=== PATIENT | female | born 1955 | race Caucasian/White ===

== ENCOUNTER → 2018-04-12 12:17 | Outpatient (CLI) | payer MEDICAID, SELFPAY ==
--- NOTE | 2018-04-12 12:22 | BI_ITS ---
MAMMOGRAPHY - BILATERAL SCREENING REASON FOR EXAM: Female, 62 years old. Routine annual screening examination. PERTINENT HISTORY: Non-contributory. TECHNIQUE: Digital bilateral breast kristy (3D mammographic acquisition) in the CC and MLO projections. 2-D mediolateral oblique (MLO) and craniocaudad (CC) views of both breasts were obtained. CAD: Full Field Digital Mammography with Computer Added Detection was performed. COMPARISON: Comparison is made with prior operative examination dated November 14, 2013. FINDINGS: Breast Composition: There are scattered areas of fibroglandular density. There are no dominant masses or suspicious calcifications. Stable small bilateral axillary lymph nodes. No other significant abnormalities are identified. There has been no significant change since the prior study. BI/SCREENING MAMM (CAD), BILAT IMPRESSION: Stable bilateral screening mammogram. Yearly follow-up mammogram recommended. (A) ASSESSMENT CATEGORY: BIRADS Category 2: Benign. A letter regarding these results will be sent to the patient by the facility within 30 days. Approximately 10% of breast cancers are not detected by mammography. A normal mammogram should not delay biopsy of a clinically suspicious abnormality. [id number] Electronically Signed: Wade Chavarria MD at 11:15 EST Tel [phone], Service support ,
--- OUTSIDE RECORDS SUMMARY | 2018-06-05 18:38 | XMS RPT_ITS ---
:1955 Author Organization [facility] Care Team Providers Name Role Phone CASSIE ALMODOVAR Attending Unavailable CASSIE ALMODOVAR Referring Unavailable Cash Santamaria Primary Care Unavailable PROBLEMS PROBLEMS No Problem Records FoundPROCEDURES PROCEDURES No Procedure Records FoundRESULTS RESULTS SCREENING MAMM (CAD), Observed: 04/12/2018 Status: F Source: [place] 12:22 PM [facility] REPOSITORY [facility] Imaging Services [address] [place] [address] SCREENING MAMM (CAD), BIL MR#: [id number] Acct: [id number] Name: FRANSISCO SANTOYO Rep #: [id number] : 1955 F 62 From: Wade Chavarria MD PCP: Cash Santamaria MD Status: REG [facility] Study: SCREENING MAMM (CAD), BILAT Date of Exam: 04/12/18 Exam# [id number] Ordering Dr: RADHA KELLEY MAMMOGRAPHY - BILATERAL SCREENING REASON FOR EXAM: Female, 62 years old. Routine annual screening examination. PERTINENT HISTORY: Non-contributory. TECHNIQUE: Digital bilateral breast kristy (3D mammographic acquisition) in the CC and MLO projections. 2-D mediolateral oblique (MLO) and craniocaudad (CC) views of both breasts were obtained. CAD: Full Field Digital Mammography with Computer Added Detection was performed. COMPARISON: Comparison is made with prior operative examination dated November 14, 2013. FINDINGS: Breast Composition: There are scattered areas of fibroglandular density. There are no dominant masses or suspicious calcifications. Stable small bilateral axillary lymph nodes. No other significant abnormalities are identified. There has been no significant change since the prior study. BI/SCREENING MAMM (CAD), BILAT IMPRESSION: Stable bilateral screening mammogram. Yearly follow-up mammogram recommended. (A) ASSESSMENT CATEGORY: BIRADS Category 2: Benign. A letter regarding these results will be sent to the patient by the facility within 30 days. Approximately 10% of breast cancers are not detected by mammography. A normal mammogram should not delay biopsy of a clinically suspicious abnormality. 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: Signed ALLERGIES ALLERGIES No Allergies Records FoundENCOUNTERS ENCOUNTERS ADMIT/DISCHARGE ACCOUNT ADMITTING ENCOUNTER LOCATION SOURCE NUMBER CLASS 04/12/2018 [id number] Ambulatory [facility]ter [facility] ing:OPBI Repository PAYERS PAYERS ENCOUNTER GUARANTOR PAYER SUBSCRIBER SOURCE 04/12/2018 FRANSISCO Emerson Primary FRANSISCO Thomas [id number] Insurance:CARESOURCEP REGALLISDOB: Community CARRIAGE [facility] [place]: [id number] [id number] Repository [address]Unc: 330) Date:2018-02-23P O [phone] () [address]ATTN: [place] [address]TU: 04/12/2018 [facility]: Effective Repository Date:2018-02-23
== END ==
PROVIDERS: Family Provider Family Medicine; PCP Family Medicine
DX: Z12.31 Encounter for screening mammogram for malignant neoplasm of breast (principal)
CPT/HCPCS: 77063; 77067

== ENCOUNTER → 2019-04-14 11:39 | Outpatient (CLI) | payer MEDICARE, SELFPAY ==
--- NOTE | 2019-04-14 11:43 | BI_ITS ---
MAMMOGRAPHY - BILATERAL SCREENING REASON FOR EXAM: Female, 63 years old. Routine annual screening examination. PERTINENT HISTORY: Non-contributory. TECHNIQUE: Digital bilateral breast giovanna (3D mammographic acquisition) in the CC and MLO projections. 2-D mediolateral oblique (MLO) and craniocaudad (CC) views of both breasts were obtained. CAD: Full Field Digital Mammography with Computer Added Detection was performed. COMPARISON: Comparison is made with prior study dated April 12, 2018. FINDINGS: Breast Composition: There are scattered areas of fibroglandular density. There are no dominant masses or suspicious calcifications. Stable benign-appearing small bilateral axillary lymph nodes. No other significant abnormalities are identified. There has been no significant change since the prior study. BI/SCREEN MAMM (CAD) W/GIOVANNA BILAT IMPRESSION: Stable bilateral screening mammogram. Yearly follow-up mammogram recommended. (A) ASSESSMENT CATEGORY: BIRADS Category 2: Benign. A letter regarding these results will be sent to the patient by the facility within 30 days. Approximately 10% of breast cancers are not detected by mammography. A normal mammogram should not delay biopsy of a clinically suspicious abnormality. [id number] Electronically Signed: Wade Chavarria, at 13:19 EST , Service support ,
[2019-06-20 11:05] VITALS: BMI 32.7
== END ==
PROVIDERS: Family Provider Family Medicine; PCP Family Medicine; Referring Provider Nurse Practitioner Women's Health; Visit Provider Nurse Practitioner Women's Health
DX: Z12.31 Encounter for screening mammogram for malignant neoplasm of breast (principal)
CPT/HCPCS: 77063; 77067

== ENCOUNTER → 2020-04-13 | Outpatient (CLI) | payer MEDICARE, SELFPAY ==
[2019-06-20 11:05] VITALS: BMI 32.7
== END | disposition home or self-care (01) ==
LOC: LABSPEC 18:10
PROVIDERS: PCP Family Medicine; Referring Provider Family Medicine; Visit Provider Family Medicine
DX: Z20.828 Contact with and (suspected) exposure to other viral communicable diseases (principal)
CPT/HCPCS: 87635; C9803; U0003

== ENCOUNTER → 2020-06-26 12:30 | Outpatient (CLI) | payer MEDICARE, SELFPAY ==
[2019-06-20 11:05] VITALS: BMI 32.7
--- NOTE | 2020-06-26 12:31 | BI_ITS ---
MAMMOGRAPHY - BILATERAL SCREENING REASON FOR EXAM: Female, 64 years old. Routine annual screening examination. PERTINENT HISTORY: Non-contributory. TECHNIQUE: Digital bilateral breast giovanna (3D mammographic acquisition) in the CC and MLO projections. 2-D mediolateral oblique (MLO) and craniocaudad (CC) views of both breasts were obtained. CAD: Full Field Digital Mammography with Computer Added Detection was performed. COMPARISON: Comparison is made with prior study dated 04/14/2019. FINDINGS: Breast Composition: There are scattered areas of fibroglandular density. There are no dominant masses or suspicious calcifications. Stable small benign appearing bilateral axillary lymph nodes. No other significant abnormalities are identified. There has been no significant change since the prior study. BI/SCRN MAMM (CAD)W/GIOVANNA BILAT IMPRESSION: Stable bilateral screening mammogram. Yearly follow-up mammogram recommended. (A) ASSESSMENT CATEGORY: BIRADS Category 2: Benign. A letter regarding these results will be sent to the patient by the facility within 30 days. Approximately 10% of breast cancers are not detected by mammography. A normal mammogram should not delay biopsy of a clinically suspicious abnormality. [id number] Electronically Signed: Wade Chavarria MD at 13:53 EST , Service support ,
== END ==
PROVIDERS: PCP Family Medicine; Referring Provider Nurse Practitioner Women's Health; Visit Provider Nurse Practitioner Women's Health
DX: Z12.31 Encounter for screening mammogram for malignant neoplasm of breast (principal)
CPT/HCPCS: 77063; 77067

== ENCOUNTER 2020-08-03 14:30 | Outpatient (RCR) | payer MEDICARE, SELFPAY ==
[2020-06-26 13:11] VITALS: BMI 34.4
--- NOTE | 2020-07-04 16:20 | HP.PTEVAL_ITS ---
Patient's Visit Information FRANSISCO SANTOYO is a 64 year old F referred to Physical Therapy by Dr. Lucita Evans DO with a diagnosis of B knee OA. Date of Evaluation: 06/29/20 Physical Therapist: Terrence Iverson DPT - Visit Plan Frequency: 1x/Week Duration: 6 Weeks Plan: Start with BLE strengthening in aquatic setting. 1) focus on general mobility 2) quad, glute med/max strengthening. 3) HS stretching. Progress as tolerated. - Subjective Pt. is here today for her initial evaluation with diagnosis of B knee pain. Pt. reports having R knee pain for a few years, but now both are bothering her. 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 She does report that this has become more difficult as bending down and getting to lower surfaces is difficult. Pt. reports most pain is at L medial joint line, but has similar R joint line pain, just not as severe. Increases pain: standing, walking, stairs, and getting up from seated positions. Pt. does report popping and cracking in B knees as well. No N/T, no distal LEs pain. Pt. is hopeful to reduce symptoms in order to get back to all work activities without limitations. Pt. is also worried about being able to carry/hold new grandson to be with the way her knees are currently. - Pain R knee Pain Intensity (Out of 10): 0 Pain Intensity Range: 0, 8 L knee Pain Intensity (Out of 10): 0 Pain Intensity Range: 0, 8 - Objective POSTURE: Pt. has decent posture in stnace. No much valgus or varus demformaties noted. Pt. has slight B hip IR noted. Slight anterior pelvic tilt. PALPATION: Pt. has increased medial joint line pain, R worse than L. Also popliteal fossa pain at medial aspect L worse than R. NEURO: Pt. has normal sensation of B LEs. Normal DTR of B achilles and B patellar tendons. ROM: R knee 0-0-132deg MIld increase in symptoms with over pressure. L knee 0-5-127deg. Pt. has increased pain with over press to L knee into extension. Tightness noted in BHS as well. MMT: RLE: ankle 5/5 throughout; knee- ext 4+/5, flexon 4+/5; hip- flexion 4/5, abd 4/5, ext 4/5, ER 4/5. LLE- ankle 5/5 throughout; knee- ext 4+/5, flexon 4+/5; hip- flexion 4/5, abd 4/5, ext 4/5, ER 4/5. Pt. did have increased pain with knee extension testing on LLE. GAIT: Pt. ambulates well without AD. Pt. has increased lateral hip translation, but other than that has good knee ROM bilaterally. Pt. does report increased symptoms as she walks further. STAIRS: Pt. has increased pain with ascending and descending stairs with use of BHR, L knee pain worse than R. - Goals Goal 1:: LTG: Pt. to be I with HEP. Goal Time Frame: 4-6 Weeks Goal 2:: STG: Pt. to sleep throughout the night without increase in symptoms. Goal Time Frame: 2-4 Weeks Goal 3:: LTG: Pt. to be able to walk 500+ with 0-1/10 pain in B knees. Goal Time Frame: 4-6 Weeks Goal 4:: LTG: Pt. to negotiate 1 flight of stairs with 0-2/10 pain B knees. Goal Time Frame: 4-6 Weeks Goal 5:: LTG: Pt. to have increased strength in BLEs by 1/2 grade of all effected musculature. Goal Time Frame: 4-6 Weeks - Rehabilitation Potential Physical Therapy Diagnosis: Pt. has signs and symptoms consistent with B knee OA. Pt. has subsequent slight hypomobiltity, BLE weakness, increased pain and difficulty with work and recreational activities. Rehabilitation Potential: Good - Anticipated Interventions Patient/Client Instruction: Educate patient on: Condition, Plan of Care, Risk Factors, Benefits of Fitness Program For the Purpose of:: To foster healthy habits, To improve decision making, To facilitate caregiver knowledge, To improve self management, To prevent re- injury, To improve ability to perform tasks related to life management, To improve tolerance to ADL's Therapeutic Exercise to Include: Strength training, Power training, Endurance training, Balance training, Coordination, Agility training, Body mechanics, Postural training, Flexibilty training, Gait and locomotor training, In an aquatic setting, Passive ROM, Active ROM For the Purpose of:: To decrease pain, To decrease swelling/inflammation, To increase ROM, To improve nutrient delivery to tissue, To increase oxygenation perfusion, To improve muscle performance and motor function, To improve ability to perform ADL's, To increase tolerance to activity/condition/position, To improve performance and independence with ADL's, To improve ability of physical actions for home/community/work/leisure, To improve gait and locomotor functions, To improve health of tissue, To decrease soft tissue restriction, To increase flexibility/ROM, To improve endurance, To improve balance, To improve safety with gait Thank you for the opportunity to evaluate your patient. For Medicare and Medicare HMO plans, please review the plan of care and approve it. It will need to be FAXED BACK to us at [phone] for Medicare purposes. For Medicare only, by signing this I certify the plan of care. Please let me know if there are questions or concerns regarding this plan of care. Physician Signature: Date:
== END 2020-08-03 19:00 | disposition home or self-care (01) ==
LOC: PT 14:30
PROVIDERS: PCP Family Medicine; Referring Provider Orthopaedic Surgery; Visit Provider Orthopaedic Surgery
DX: M17.0 Bilateral primary osteoarthritis of knee (principal)
CPT/HCPCS: 97113; 97161

== ENCOUNTER → 2020-11-05 11:02 | Outpatient (CLI) | payer MEDICARE, SELFPAY ==
[2020-06-26 13:11] VITALS: BMI 34.4
--- NOTE | 2020-11-05 11:04 | US_ITS ---
STUDY: RENAL ULTRASOUND - COMPLETE REASON FOR EXAM: Female, 65 years old. FLANK PAIN TECHNIQUE: Ultrasound evaluation of the kidneys was performed with real-time and static valentino-scale imaging. COMPARISON: None. FINDINGS: RIGHT KIDNEY: Normal location of the right kidney, which is normal in size. The right kidney measures 10.2 cm x 4.6 cm x 4.1 cm. There is a normal cortex of the right kidney. The renal cortex measures 1 cm. There is no right renal mass or cyst. There are no right renal calculi. There is no right hydronephrosis. DISTAL RIGHT URETER: There is non-visualization of the distal right ureter. There is no demonstrated right ureterovesical junction calculus. There is no demonstrated right ureteral jet. LEFT KIDNEY: Normal location of the left kidney, which is normal in size. The left kidney measures 9.7 cm x 5.2 cm x 4.6 cm. There is a normal cortex of the left kidney. The renal cortex measures 1.1 cm. There is no left renal mass or cyst. There are no left renal calculi. There is no left hydronephrosis. DISTAL LEFT URETER: There is non-visualization of the distal left ureter. There is no demonstrated left ureterovesical junction calculus. There is no demonstrated left ureteral jet. BLADDER: The distended urinary bladder has a volume of 281 ml. There is a normal wall thickness of the distended urinary bladder. There is no demonstrated mass within the urinary bladder. There are no demonstrated bladder calculi. US/Kidney and Bladder IMPRESSION: Normal ultrasound of the kidneys and urinary bladder. Electronically Signed: Wade Chavarria MD at 8:36 EDT , Service support ,
--- NOTE | 2020-11-05 11:05 | US_ITS ---
STUDY: ULTRASOUND OF THE FEMALE PELVIS - COMPLETE REASON FOR EXAM: Female, 65 years old. FLANK PAIN LMP: Menopause TECHNIQUE: Transabdominal TECHNICAL QUALITY: Adequate. COMPARISON: None. FINDINGS: The uterus is anteverted and is in a midline position. The uterus measures 6.9 x 3.6 x 1.9 cm. Normal uterine cervix. The endometrium measures 4 mm in thickness, and is hyperechoic. There is no demonstrated endometrial mass. There is no demonstrated myometrial mass. I.U.D. - The patient does not have an I.U.D. The right ovary is non-visualized.. The left ovary is visualized. The left ovary measures 2.4 x 1.7 x 1.9 cm. 1.4 cm round anechoic mass with increased transmission the left ovary consistent with a physiologic cyst, par ovarian cyst, or cystadenoma. Follow-up ultrasound is recommended in one year. There is no visualized left adnexal mass or complex lesion. There is normal arterial and normal venous vascularity. There is no fluid in the cul-de-sac. The pre void volume of the bladder was 251 ml. The post void volume of the bladder was ml. Polycystic ovary disease: No. US/Pelvic (Non ) IMPRESSION: 1.4 cm of the left ovarian physiologic cyst, par ovarian cyst, or cystadenoma. Follow-up ultrasound is recommended in one year. Electronically Signed: Chance Doll MD at 17:14 EDT Tel , Service support ,
== END ==
PROVIDERS: PCP Family Medicine; Referring Provider Urology; Visit Provider Urology
DX: R10.32 Left lower quadrant pain (principal)
CPT/HCPCS: 76770; 76856

== ENCOUNTER → 2021-01-07 | Outpatient (CLI) | payer MEDICARE, SELFPAY ==
[2021-01-09 13:07] LABS: Cancer Antigen 125 12.6 U/mL (0.0-38.1); Carcinoembryonic Antigen 1.7 ng/mL (0.0-4.7)
== END | disposition home or self-care (01) ==
LOC: LABSPEC 16:31
PROVIDERS: PCP Family Medicine; Visit Provider Obstetrics & Gynecology
DX: N83.202 Unspecified ovarian cyst, left side (principal); Z13.79 Encounter for other screening for genetic and chromosomal anomalies; Z13.71 Encounter for nonprocreative screening for genetic disease carrier status
CPT/HCPCS: 36415; 82378; 86304

== ENCOUNTER → 2021-01-28 11:14 | Outpatient (CLI) | payer MEDICARE, SELFPAY ==
--- NOTE | 2021-01-28 11:18 | US_ITS ---
INDICATION: ovarian cyst EXAMINATION: US Pelvis Non OB Complete With Transvaginal Imaging TECHNIQUE: Transabdominal and transvaginal pelvic ultrasound was performed. Grayscale, spectral waveform, and color flow Doppler evaluation of the adnexa. COMPARISON: Ultrasound 11/05/2020. FINDINGS: UTERUS: Anteverted. The uterus measures 6.7 x 3.7 x 2.5 cm. There is a small posterior uterine fibroid. The endometrial stripe measures 3 mm in AP diameter which is within normal limits. RIGHT OVARY: Measures 2.2 x 2.1 x 1.6 cm. Non-enlarged, normal echogenicity. There is normal arterial inflow and venous outflow present in the right ovary. LEFT OVARY: Measures 2.8 x 2.7 x 1.7 cm. Non-enlarged, normal echogenicity. There is normal arterial inflow and venous outflow present in the left ovary. Slight increase in size of a slightly complex multilocular cystic lesion in the left ovary now measuring 2.1 cm. FREE FLUID: None. US/Transvaginal Non- IMPRESSION: Slight increase in size of a 2.1 cm multilocular cystic lesion in the left ovary. Consider multiphase pelvic MRI with and without contrast. Electronically Signed: Marv Herbert MD at 18:06 EDT Tel , Service support ,
--- NOTE | 2021-01-28 11:18 | US_ITS ---
INDICATION: ovarian cyst EXAMINATION: US Pelvis Non OB Complete With Transvaginal Imaging TECHNIQUE: Transabdominal and transvaginal pelvic ultrasound was performed. Grayscale, spectral waveform, and color flow Doppler evaluation of the adnexa. COMPARISON: Ultrasound 11/05/2020. FINDINGS: UTERUS: Anteverted. The uterus measures 6.7 x 3.7 x 2.5 cm. There is a small posterior uterine fibroid. The endometrial stripe measures 3 mm in AP diameter which is within normal limits. RIGHT OVARY: Measures 2.2 x 2.1 x 1.6 cm. Non-enlarged, normal echogenicity. There is normal arterial inflow and venous outflow present in the right ovary. LEFT OVARY: Measures 2.8 x 2.7 x 1.7 cm. Non-enlarged, normal echogenicity. There is normal arterial inflow and venous outflow present in the left ovary. Slight increase in size of a slightly complex multilocular cystic lesion in the left ovary now measuring 2.1 cm. FREE FLUID: None. US/Pelvic (Non ) IMPRESSION: Slight increase in size of a 2.1 cm multilocular cystic lesion in the left ovary. Consider multiphase pelvic MRI with and without contrast. Electronically Signed: Marv Herbert MD at 18:06 EDT Tel , Service support ,
== END ==
PROVIDERS: PCP Family Medicine; Referring Provider Obstetrics & Gynecology; Visit Provider Obstetrics & Gynecology
DX: N83.202 Unspecified ovarian cyst, left side (principal)
CPT/HCPCS: 76830; 76856

== ENCOUNTER → 2021-02-18 10:58 | Outpatient (CLI) | payer MEDICARE, SELFPAY ==
--- NOTE | 2021-02-18 10:59 | MRI_ITS ---
MR Pelvis Female WO/W Contrast Indication: 65 years old Female presenting with left ovarian cyst. Technique: MR of the female pelvis was performed in multiple planes with standard T1, T2, fat-saturated pre and postcontrast images. Field Strength: 1.5 Deloris. Contrast: A total of 17 cc IV gadolinium Dotarem is administered for the study. Comparison: Ultrasound pelvic 28 January 2021, 05 November 2020 Findings: There is a benign left ovarian 1.8 cm cyst. Size differences between MR and ultrasound are within expected difference between modality and not significant from prior reports. The lesion is low risk and does not require further follow-up according to radiologic guidelines. There are no solid or ovarian masses. Uterus is normal with postmenopausal atrophic endometrial cavity. Pessary is in the vagina. Bladder, urethra, rectum and cervix are normal. Skeletal structures of the pelvis are normal. MRI/Pelvis W/WO Contrast IMPRESSION: 1. Left ovarian benign 1.8 cm cyst not requiring further dedicated diagnostic imaging. 2. Unremarkable female pelvic MRI. Electronically Signed: Ck Schwartz MD at 16:48 EDT Tel , Service support ,
[2021-02-19 08:20] LABS: CREATININE FINGERSTICK 0.8 mg/dL (0.55-1.02); EGFR FINGERSTICK > 60.0000 mL/min (>60)
== END ==
PROVIDERS: PCP Family Medicine; Referring Provider Obstetrics & Gynecology; Visit Provider Obstetrics & Gynecology
DX: N83.202 Unspecified ovarian cyst, left side (principal)
CPT/HCPCS: 72197; A9575

== ENCOUNTER 2021-07-15 14:55 | Outpatient (CLI) | payer MEDICARE, SELFPAY ==
--- NOTE | 2021-07-15 14:57 | BI_ITS ---
MAMMOGRAPHY - BILATERAL SCREENING REASON FOR EXAM: Female, 65 years old. Routine annual screening examination. PERTINENT HISTORY: Non-contributory. TECHNIQUE: Digital bilateral breast giovanna (3D mammographic acquisition) in the CC and MLO projections. 2-D mediolateral oblique (MLO) and craniocaudad (CC) views of both breasts were obtained. CAD: Full Field Digital Mammography with Computer Added Detection was performed. COMPARISON: Comparison is made with prior study dated 06/26/2020 and 04/14/2019. FINDINGS: Breast Composition: The breasts are almost entirely fatty. There are no dominant masses or suspicious calcifications. Stable benign-appearing bilateral axillary lymph nodes. No other significant abnormalities are identified. There has been no significant change since the prior study. BI/SCRN MAMM (CAD)W/GIOVANNA BILAT IMPRESSION: Stable bilateral screening mammogram. Yearly follow-up mammogram recommended. (A) ASSESSMENT CATEGORY: BIRADS Category 2: Benign. A letter regarding these results will be sent to the patient by the facility within 30 days. Approximately 10% of breast cancers are not detected by mammography. A normal mammogram should not delay biopsy of a clinically suspicious abnormality. [id number] Electronically Signed: Wade Chavarria MD at 15:46 EST ,
== END 2021-07-15 23:59 | disposition home or self-care (01) ==
LOC: OPBI 14:56
PROVIDERS: PCP Family Medicine; Visit Provider Nurse Practitioner Women's Health
DX: Z12.31 Encounter for screening mammogram for malignant neoplasm of breast (principal)
CPT/HCPCS: 77063; 77067

== ENCOUNTER → 2021-11-22 | Outpatient (CLI) | payer MEDICARE, SELFPAY | END | disposition home or self-care (01) | LOC: LABSPEC 10:04 | PROVIDERS: PCP Family Medicine; Visit Provider Obstetrics & Gynecology | DX: R10.2 Pelvic and perineal pain (principal) | CPT/HCPCS: 87070; 87205 ==

== ENCOUNTER → 2021-12-11 | Outpatient (CLI) | payer MEDICARE, SELFPAY | END | disposition home or self-care (01) | LOC: LABSPEC 15:20 | PROVIDERS: PCP Family Medicine; Referring Provider Nurse Practitioner Women's Health; Visit Provider Nurse Practitioner Women's Health | DX: R30.9 Painful micturition, unspecified (principal) | CPT/HCPCS: 87077; 87086; 87088; 87186 ==

== ENCOUNTER → 2022-01-27 | Outpatient (CLI) | payer MEDICARE, SELFPAY | END | disposition home or self-care (01) | LOC: LABSPEC 01-28 06:20 | PROVIDERS: PCP Family Medicine; Visit Provider Obstetrics & Gynecology | DX: N89.8 Other specified noninflammatory disorders of vagina (principal) | CPT/HCPCS: 87070; 87205 ==

== ENCOUNTER → 2022-04-08 | Outpatient (CLI) | payer MEDICARE, SELFPAY ==
--- NOTE | 2022-04-08 11:06 | US_ITS ---
EXAM: US pelvis. HISTORY: Left ovarian cyst COMPARISON: MRI pelvis February 18, 2021. Pelvic ultrasound January 28, 2021. LIMITATIONS: None. FINDINGS: A pessary results in shadowing artifact limiting evaluation of the lower uterine segment and cervix.. Endometrial thickness is normal measuring 3 mm. A 2.4 x 2 cm cyst is in the left ovary. The cyst is largely composed of simple fluid. The cyst is similar in size and appearance to the prior examinations. The right ovary is not visualized. No gross free pelvic fluid. US/Transvaginal Non- IMPRESSION: 2.4 x 2 cm left ovarian cyst is grossly stable in size and appearance to the prior examinations. Electronically Signed: Daniel Tyler MD at 2:04 EST ,
== END | disposition home or self-care (01) ==
LOC: US 11:05
PROVIDERS: PCP Family Medicine; Visit Provider Obstetrics & Gynecology
DX: N83.202 Unspecified ovarian cyst, left side (principal)
CPT/HCPCS: 76830

== ENCOUNTER → 2022-06-10 | Outpatient (CLI) | payer MEDICARE, SELFPAY | END | disposition home or self-care (01) | LOC: LAB 14:58 | PROVIDERS: PCP Family Medicine; Visit Provider Obstetrics & Gynecology | DX: R39.9 Unspecified symptoms and signs involving the genitourinary system (principal) | CPT/HCPCS: 87077; 87086; 87088; 87186 ==

== ENCOUNTER → 2022-06-30 | Outpatient (CLI) | payer MEDICARE, SELFPAY | END | disposition home or self-care (01) | LOC: LABSPEC 14:04 | PROVIDERS: PCP Family Medicine; Referring Provider Obstetrics & Gynecology; Visit Provider Obstetrics & Gynecology | DX: N89.8 Other specified noninflammatory disorders of vagina (principal) | CPT/HCPCS: 87070; 87205 ==

== ENCOUNTER → 2022-10-23 | Outpatient (CLI) | payer MEDICARE, SELFPAY ==
--- NOTE | 2022-10-23 10:55 | US_ITS ---
STUDY: ULTRASOUND TRANSVAGINAL CLINICAL: Female, 67 years old. Postmenopausal bleeding. TECHNIQUE: Transvaginal COMPARISON: April 08, 2022. FINDINGS: The uterus is anteverted and measures 6.2 x 2.8 x 2.3 cm.. There is mild heterogeneity of the myometrium. There is a small anechoic mass in the subserosal region of the posterior. Left mid uterus. Cyst versus fibroid The endometrial measures 3.6 mm in thickness and is hyperechoic. There are no endometrial masses, and there is no fluid in the endometrial cavity. Normal uterine cervix. Normal right ovary, measuring 1.1 x 0.9 x 0.6 cm. There are multiple follicles without a dominant cyst. Normal vascularity on Doppler imaging. Normal left ovary, measuring 1.6 x 1.5 x 1.0 cm. There are multiple follicles with a dominant 0.9 cm cyst. Normal vascularity on Doppler imaging. There is no free fluid in the pelvis. Polycystic ovary disease: No. US/Transvaginal Non- IMPRESSION: 1. Heterogenous myometrium was questionable subserosal cysts versus anechoic fibroid. 2. Normal endometrium. 3. Normal right ovary. There is a small cyst left ovary. The cyst decreased in size when compared to the prior study. Electronically Signed: Vasyl Terry DO at 18:41 EDT ,
== END | disposition home or self-care (01) ==
PROVIDERS: PCP Family Medicine; Referring Provider Obstetrics & Gynecology; Visit Provider Obstetrics & Gynecology
DX: N95.0 Postmenopausal bleeding (principal)
CPT/HCPCS: 76830

== ENCOUNTER → 2022-12-08 | Outpatient (CLI) | payer MEDICARE, SELFPAY ==
--- NOTE | 2022-12-08 11:52 | BI_ITS ---
MAMMOGRAPHY - BILATERAL SCREENING REASON FOR EXAM: Female, 67 years old. Routine annual screening examination. PERTINENT HISTORY: Non-contributory. TECHNIQUE: Digital bilateral breast giovanna (3D mammographic acquisition) in the CC and MLO projections. 2-D mediolateral oblique (MLO) and craniocaudad (CC) views of both breasts were obtained. CAD: Full Field Digital Mammography with Computer Added Detection was performed. COMPARISON: Comparison is made with prior study dated July 15, 2021) dictated the 2020. FINDINGS: Breast Composition: The breasts are almost entirely fatty. There are no dominant masses or suspicious calcifications. Stable small benign appearing bilateral axillary lymph nodes. No other significant abnormalities are identified. There has been no significant change since the prior study. BI/SCRN MAMM (CAD)W/GIOVANNA BILAT IMPRESSION: Stable bilateral screening mammogram. Yearly follow-up mammogram recommended. (A) ASSESSMENT CATEGORY: BIRADS Category 2: Benign. A letter regarding these results will be sent to the patient by the facility within 30 days. Approximately 10% of breast cancers are not detected by mammography. A normal mammogram should not delay biopsy of a clinically suspicious abnormality. [id number] Electronically Signed: Wade Chavarria MD at 13:39 EDT ,
[2022-12-15 11:07] LABS: HPV APTIMA, High Risk Negative (Negative)
== END | disposition home or self-care (01) ==
PROVIDERS: Obstetrics & Gynecology; PCP Family Medicine; Referring Provider Nurse Practitioner Women's Health; Visit Provider Nurse Practitioner Women's Health
DX: Z12.31 Encounter for screening mammogram for malignant neoplasm of breast (principal); Z12.4 Encounter for screening for malignant neoplasm of cervix; Z78.0 Asymptomatic menopausal state
CPT/HCPCS: 77063; 77067; 87624; 88175; G0145

== ENCOUNTER → 2023-03-02 | Outpatient (CLI) | payer MEDICARE, SELFPAY | END | disposition home or self-care (01) | LOC: LABSPEC 17:12 | PROVIDERS: PCP Family Medicine; Referring Provider Obstetrics & Gynecology; Visit Provider Obstetrics & Gynecology | DX: N89.8 Other specified noninflammatory disorders of vagina (principal) | CPT/HCPCS: 87070; 87205 ==

== ENCOUNTER → 2023-04-24 | Outpatient (CLI) | payer MEDICARE, SELFPAY ==
--- NOTE | 2023-04-24 12:22 | CT_ITS ---
PROCEDURE: CT RIGHT KNEE WITHOUT CONTRAST REASON FOR EXAM: Female, 67 years old. Preoperative planning for the MakoPlasty Robotic knee surgery. Knee pain. TECHNIQUE: Transaxial CT of the hip, knee and ankle were obtained. Coronal and sagittal reconstruction images of the knee were provided. Individualized dose optimization techniques were used for this CT. COMPARISON: None. FINDINGS: Standard protocol for the preoperative planning for the MakoPlasty robotic knee surgery was performed. Mild arthrosis of the right hip, moderate arthrosis of the medial compartment, mild arthrosis of the lateral compartment and moderate arthrosis of the patellofemoral compartment of the right knee and mild arthrosis of the tibiotalar joint. CT/Extremity Lower without Contra IMPRESSION: Preoperative MakoPlasty Robotic knee surgical CT evaluation with findings as described above. Electronically Signed: Remington Monsalve MD at 13:46 EST ,
== END | disposition home or self-care (01) ==
LOC: CT 12:20
PROVIDERS: PCP Family Medicine; Referring Provider Student in an Organized Health Care Education/Training Program; Visit Provider Student in an Organized Health Care Education/Training Program
DX: M25.561 Pain in right knee (principal)
CPT/HCPCS: 73700

== ENCOUNTER → 2023-05-05 | Outpatient (CLI) | payer MEDICARE, SELFPAY ==
[2023-05-05 17:02] LABS: Color, Urine Yellow (Yellow); Glucose, Dipstick Normal (Normal); Ketone-Dipstick Negative (Negative); Leukocyte Esterase-Dipstick 500 /ul (Negative); Nitrite-Dipstick Negative (Negative); Occult Blood-Urine 50 /ul (Negative); Protein-Dipstick 30 mg/dl (Negative); Urine Bilirubin Dipstick Negative (Negative); Urine Clarity Sl. Cloudy (Clear); Urine Urobilinogen Normal (Normal)
== END | disposition home or self-care (01) ==
PROVIDERS: PCP Family Medicine; Visit Provider Family Medicine
DX: R30.0 Dysuria (principal)
CPT/HCPCS: 81002; 87086; 87088; 87186

== ENCOUNTER → 2023-06-12 | Outpatient (CLI) | payer MEDICARE, SELFPAY ==
--- NOTE | 2023-04-24 12:19 | EKG12_ITS ---
Test Reason : PRE-OP Blood Pressure : / mmHG Vent. Rate : 081 BPM Atrial Rate : 081 BPM P-R Int : 194 ms QRS Dur : 112 ms QT Int : 358 ms P-R-T Axes : 030 003 016 degrees QTc Int : 415 ms Normal sinus rhythm Normal ECG Confirmed by RADHA ESTEVES, LEONIE ([id number]), staff editor DEBBIE FALLON ([id number]) on 04/27/2023 8:38:49 AM Referred By: Kurt Mcclellan Confirmed By:BHARATH GARCIA MD
[2023-04-24 13:23] LABS: Absolute Lymphocyte Count 2.13 X10^3/uL (0.83-4.51); Absolute Neutrophil Count 6.7 X10^3/uL (2.0-7.7); Basophil# 0.06 X10^3/uL; Basophil% 0.6 % (0-1); Eosinophil# 0.24 X10^3/uL; Eosinophils% 2.4 % (0-5); Hemoglobin 12.5 g/dL (12.0-15.0); Lymphocyte # 2.13 X10^3/ul (0.83-4.51); Lymphocyte % 21.7 % (19-41); Mean Corp Hgb Conc 30.5 g/dL (32-36); Mean Corpuscular Hgb 26.3 pg (27.0-32.0); Mean Corpuscular Volume 86.1 fL (81-99); Mean Platelet Vol. 9.2 fl (6.2-12.0); Monocyte# 0.64 X10^3/uL; Monocyte% 6.5 % (0-10); NRBC Flagged by Analyzer 0 % (0-5); Neutrophil % 68.4 % (47-70); Platelet Count 371 K/mm3 (150-450); RBC Distribution Width CV 13.8 % (11.6-14.6); RBC Distribution Width SD 43.5 fl (35.1-43.9); Red Blood Count 4.76 M/mm3 (4.2-5.4); White Blood Count 9.8 K/mm3 (4.4-11.0)
[2023-04-24 13:43] LABS: Albumin, Serum 3.4 g/dL (3.2-5.0); Anion Gap 2 (5-15); BUN 11 mg/dL (7-18); BUN/Creat Ratio 12.7 RATIO (10-20); Calcium,Total 9.8 mg/dL (8.5-10.1); Chloride 108 mmol/L (98-107); Creatinine, Serum 0.86 mg/dL (0.55-1.02); EST Glomerular Filtration Rate 69 mL/min (>60); Est Glom Filt Rate - Afr Amer 83 mL/min (>60); Glucose 102 mg/dL (74-106); Magnesium 2.2 mg/dL (1.6-2.6); Potassium 4.1 mmol/L (3.5-5.1); Sodium Level 139 mmol/L (136-145)
[2023-04-27 14:08] LABS: Hemoglobin A1c 5.4 % (3.8-5.6)
== END | disposition home or self-care (01) ==
LOC: SDC 08:25 → PAT 13:30
PROVIDERS: PCP Family Medicine; Referring Provider Student in an Organized Health Care Education/Training Program; Visit Provider Student in an Organized Health Care Education/Training Program
DX: Z01.818 Encounter for other preprocedural examination (principal)
CPT/HCPCS: 36415; 80048; 82040; 83036; 83735; 85025; 87081; 93005; J3475

== ENCOUNTER 2023-07-16 05:25 | Day surgery (SDC) | payer MEDICARE, SELFPAY ==
[2023-06-26 13:11] LABS: Absolute Lymphocyte Count 2.87 X10^3/uL (0.83-4.51); Absolute Neutrophil Count 6.4 X10^3/uL (2.0-7.7); Basophil# 0.06 X10^3/uL; Basophil% 0.6 % (0-1); Eosinophil# 0.25 X10^3/uL; Eosinophils% 2.4 % (0-5); Hematocrit 42.1 % (37-47); Hemoglobin 13.2 g/dL (12.0-15.0); Lymphocyte # 2.87 X10^3/ul (0.83-4.51); Lymphocyte % 27.9 % (19-41); Mean Corp Hgb Conc 31.4 g/dL (32-36); Mean Corpuscular Hgb 26.7 pg (27.0-32.0); Mean Corpuscular Volume 85.1 fL (81-99); Mean Platelet Vol. 9.1 fl (6.2-12.0); Monocyte# 0.72 X10^3/uL; NRBC Flagged by Analyzer 0 % (0-5); Neutrophil # 6.37 X10^3/uL (2.7-7.7); Neutrophil % 61.8 % (47-70); Platelet Count 388 K/mm3 (150-450); RBC Distribution Width CV 14.8 % (11.6-14.6); Red Blood Count 4.95 M/mm3 (4.2-5.4); White Blood Count 10.3 K/mm3 (4.4-11.0)
[2023-06-26 13:28] LABS: Anion Gap 4 (5-15); BUN 16 mg/dL (7-18); BUN/Creat Ratio 17.2 RATIO (10-20); Calcium,Total 9.8 mg/dL (8.5-10.1); Chloride 109 mmol/L (98-107); Creatinine, Serum 0.93 mg/dL (0.55-1.02); EST Glomerular Filtration Rate 63 mL/min (>60); Est Glom Filt Rate - Afr Amer 77 mL/min (>60); Glucose 83 mg/dL (74-106); Potassium 4.2 mmol/L (3.5-5.1); Sodium Level 140 mmol/L (136-145)
[2023-06-29 14:23] LABS: Magnesium 2.2 mg/dL (1.6-2.6)
--- NOTE | 2023-07-15 07:30 | KNEE_PTH ---
PATHOLOGY RESULTS PATIENT: FRANSISCO SANTOYO LOC: [facility] [place] U#:[id number] AGE/SX: 67/F ROOM: RE07/16/[address]: Dr. Kurt Mcclellan DO : 1955 BED: DIS: 07/16/2023 SPEC #: [id number] RECD: 07/16/23 10:05 STATUS: HI RACHEAL #: [id number] SLIME: 07/15/23 07:[address]: Kurt Mcclellan DEPT: SURGICAL PATHOLOGY RECD BY: Meche Daly ENTERED: 07/16/23 10:06 SP TYPE: TOTAL KNEE OTHR DR: Dr. Cash Santamaria MD Tissues: Knee, NOS Procedures: Decalcification bone/plaque Surgery Specimen Level IV HEADER OPERATION: FELIPE, robotic assisted right total knee arthroplasty PRE-OP DIAGNOSIS: Grade IV osteoarthritis right knee TISSUE SUBMITTED: Right knee bone and tissue MICROSCOPIC DIAGNOSIS Bone and soft tissue, right knee, total knee replacement/resection: Pieces of bone with degenerative osteoarthritic changes. Fibroadipose tissue, fibroconnective tissue and reactive synovial tissue. PAUL:sonido 07/22/2023 MICROSCOPIC DESCRIPTION Slides are reviewed. GROSS DESCRIPTION Received is one container designated bone and soft tissue right knee. The specimen consists of multiple fragments of law-yellow bone measuring in aggregate 9.0 x 8.0 x 2.5 cm. Also in the specimen container are multiple fragments of fibrocartilaginous tissue measuring in aggregate 7.5 x 4.5 x 1.0 cm. A number of bony fragments contain articular surfaces consistent with tibial plateau and femoral condyle and displaying prominent osteophyte formation, eburnation and bone erosion. Flame Annealing Machine Setter sections are submitted in two cassettes as follows: 1 - soft tissue, 2 - bone after decalcification. / PAUL:sonido 07/16/2023 TC:5 CPT: 69321, 96209
[2023-07-16] VITALS (9 sets, daily range): BP systolic 97–123; BP diastolic 51–84; PULSE 80–87; RESP 16–18; TEMP 36.1–37.3; O2SAT 95–100; BMI 32.6
[2023-07-16] MEDS: Lactated Ringers 1,000 ML 999 ML IV ×2 (06:09→09:30)
[2023-07-16] MEDS: Lactated Ringers 1,000 ML 75 ML IV (06:10)
[2023-07-16] MEDS: Acetaminophen 500 MG Tablet 1000 MG PO ×2 (06:11→14:47)
[2023-07-16] MEDS: Celecoxib 200 MG Capsule 400 MG PO (06:11)
[2023-07-16] MEDS: Magnesium 1 GM over 15 mins IV (06:11)
[2023-07-16] MEDS: Gabapentin 600 MG Tablet PO (06:11)
[2023-07-16] MEDS: Cefazolin 2 GM in 0.9% Normal Saline (100mL Bag) 100 ML IV (07:30)
[2023-07-16 07:36] LABS: Bedside Glucose 85 mg/dL (74-106)
[2023-07-16] MEDS: TXA 1000mg in NS100 100ml (IVPB at Closure) 660 MG IV (07:42)
[2023-07-16] MEDS: dexAMETHasone 10 MG/ML Vial IV (07:42)
[2023-07-16] MEDS: JPS (Morphine 10mg/ml) OPERA.SITE (08:58)
[2023-07-16] MEDS: TXA 1000mg in NS100 100ml (IVPB at Incision) 660 MG IV (08:59)
--- NOTE | 2023-07-16 10:00 | OP.PCM_ITS ---
Report of Operation Date of Procedure: 07/16/23
--- NOTE | 2023-07-16 10:00 | PCM.OPRPT ---
Report of Operation Date of Procedure: 07/16/23 Description of Surgical Findings:: Preoperative diagnosis: Right severe knee primary osteoarthritis Postoperative diagnosis: Right severe knee primary osteoarthritis Procedure: Cemented right total knee arthroplasty with robotic arm assistance Surgeon: Kurt Mcclellan DO Clinical Writer: Maria Del Rosario Fonseca PA-C Anesthesia: Spinal with sedation, adductor canal block Anesthesiologist: Dr. Gallagher Complications: None apparent Drains: None Estimated blood loss: 50 cc Urinary output: None recorded IV fluids: 1 L crystalloid Specimens: Total knee resections Surgical implants: Nelia triathlon X3 asymmetric patella size a29 x 9 mm thickness, triathlon cruciate retaining femoral #3, primary tibial baseplate # 3, triathlon X3 tibial bearing insert CS 9 mm thickness Indications: This is a 67-year-old female seen in the outpatient setting diagnosed with right knee osteoarthritis with significant varus deformity. She failed nonoperative management with intra-articular corticosteroid injections, activity modification, bracing, [id number] analgesics. X-rays revealed grade 4 medial compartment changes. She also had significant patellofemoral arthritis. I recommended a right total knee arthroplasty. The risk, benefits, alternatives to procedure reviewed with patient at length and he agreed to proceed. Risks included but were not limited to bleeding, infection, loss of life or limb, need for additional surgery, persistent pain, intraoperative or postoperative fracture, instability, loosening of components, wound complications, stiffness, neurovascular injury, DVT or PE. Patient expressed understanding these risks and wished to proceed with surgery. Informed consent was obtained in the outpatient setting. Description of procedure: Patient was identified in the preoperative holding area by name, medical record number, and date of . Informed consent was confirmed with the patient. The operative knee was marked with a surgical marker. At time of her procedure, patient brought to the operative suite and positioned supine a standard operating table. Anesthesia then administered a spinal anesthetic. She was then repositioned in the supine position with all bony prominences well-padded. We then placed a well-padded pneumatic tourniquet on the right upper thigh. The right upper extremity was brought across patient's chest throughout the procedure. We then prepped and draped the left lower extremity in a normal, sterile orthopedic fashion. We performed a timeout with all parties in attendance in agreement with the side, site, operation be performed. No concerns were voiced and would like to proceed with surgery. 2 g Ancef was administered prior to the incision by anesthesia staff as well as 1 g IV TXA. First exsanguinated the left lower extremity with a Esmarch bandage. Tourniquet was inflated to 250 mmHg which remained up for approximately 50 minutes. Esmarch was removed. I planned a standard midline approach to the left knee approximately 15 cm in length. Skin was sharply incised with a 10 blade scalpel developing full-thickness layers down to the retinaculum. Layers were developed identifying the VMO. I then planned a standard medial parapatellar arthrotomy performed in flexion. The anterior horn of the medial meniscus was released. Hoffa's fat pad was then released. I then everted the patella in extension and brought the knee into 90 degrees of flexion. The anterior horn of the lateral meniscus was then released. The ACL was split in its mid substance with a 10 blade. We then brought the knee back into extension. I measured the outer diameter of the patella and appropriately sized patellar reamer was then selected. I measured the thickness of the patella to be 26 mm. I then reamed the patella to a depth of approximately 16 mm. A protective baseplate was then placed on the patella. I then placed pins in the metaphyseal distal femur medial to lateral for the Lucas arrays. In similar fashion, I made 2 stab incisions approximately a handsbreadth distal to the tibial tubercle along the medial aspect of the tibia, drilling 2 bicortical pins for the tibial array. The knee was brought into flexion. The patella was subluxed laterally but not everted. Medial and lateral retractors were placed. We then utilized the fitaborate software to confirm our planned surgical procedure and oriented with the patient's osseous anatomy. All checks with the fitaborate system were confirmed. Patient had a significant fixed varus deformity after performing stress examination utilizing the fitaborate software. We elected to place the tibial baseplate in 3 degrees of varus to allow for appropriate balancing. Sawblade was then brought in. I first started with the tibial cut, ensuring protection of the MCL and patellar tendon. A tibial wafer was then excised. I then proceeded to make the posterior femoral, anterior, anterior chamfer cuts with the same blade. Ligaments were protected with Intermedics retractors. Sawblade was then exchanged to perform the distal femoral and posterior chamfer cuts. The robot was then removed from the surgical field. Remaining loose bone and meniscus was excised carefully. Posterior osteophytes were removed from the distal femur with a curved osteotome and rongeur. Trial components were then placed. Balance was excellent in both extension and 90 degrees flexion. No mid flexion instability was apparent. I then drilled for a size 29 patella. Patella was trialed. Tracking was excellent. We then marked for tibial baseplate. Distal femoral pegs were drilled. Tibial keel was punched. Trials were removed. Periarticular block was administered. The wound was copiously irrigated with normal saline solution. Simplex cement was then mixed on the back table. Components were then cemented in place with excess cement being removed. Cement was allowed to cure with the components in full extension utilizing a 9 mm trial polyethylene component. While the cement was curing, Irrisept solution was irrigated into the wound and the wound edges. After cement had cured fully, trial polyethylene was removed. Tourniquet was deflated. Hemostasis was excellent. An additional 1 g TXA was administered IV. I selected a size 9 mm polyethylene which was placed and impacted per combine driver recommendations. Final components appeared very well balanced with excellent range of motion. There is no significant remaining flexion contracture. The wound was copiously irrigated with normal saline solution. Capsule was closed watertight with #1 strata fix barbed suture. Deeper bursal layer was reapproximated with 0 Vicryl suture. Dermis was reapproximated buried interrupted 2-0 Vicryl suture. Skin was finally reapproximated sadiq. Patient tolerated the procedure well without apparent complication. She was safely awakened in the operative suite, transferred to his hospital bed and subsequently to PACU in stable condition. Need for skilled therapeutic assistant: Maria Del Rosario Fonseca PA-C was critical to the outcome of the case. During the course of the procedure the physician therapeutic assistant played a vital role. Her intimate knowledge of my steps in the procedure aided in safe and expedient completion of the procedure. The PA played a vital role in positioning particularly in obtaining the appropriate positioning. The PA was also vital in the retraction of soft tissues during the exposure and projecting vital structures. The PA was also vital and protecting soft tissues during times of bony cuts. She also played a vital role in closure with my direct supervision. The PA was also important during reduction and dislocation of the joint and trials intraoperatively. Post Operative Plan: Plan for same-day discharge home as an outpatient right total knee arthroplasty. After spinal anesthesia wears off we will mobilize the patient with therapy and nursing staff. As long as criteria are met, we will plan for discharge home today. Outpatient physical therapy has been scheduled for postoperative day #5. Weightbearing: Range of motion and weightbearing as tolerated right lower extremity. Antibiotics: Ancef 2 g every 8 hours x 3 doses DVT Prophylaxis: Multimodal with 81 mg ASA BID, SCDs, PEDRO hose and early mobilization Lorenzo: None Dressing: Maintain silver dressing x5 days X-Rays: 2-week x-rays in the office. Follow-up: 2 weeks in my office for staple removal
[2023-07-16] MEDS: Lactated Ringers 1,000 ML 125 ML IV (10:12)
[2023-07-16] MEDS: Cefazolin 1 GM/50 ML BAG IV (12:31)
[2023-07-16] MEDS: oxyCODONE 5 MG Tablet PO (12:32)
== END 2023-07-16 15:21 | disposition home or self-care (01) ==
LOC: SDC 05:29 → AC 05:29
PROVIDERS: Anesthesiology; PCP Family Medicine; Referring Provider Student in an Organized Health Care Education/Training Program; Visit Provider Student in an Organized Health Care Education/Training Program
PROC: 0SRC0JZ Replacement of Right Knee Joint with Synthetic Substitute, Open Approach (ICD-10-PCS; CPT 27447; principal; 2023-07-16 07:00)
DX: M17.11 Unilateral primary osteoarthritis, right knee (principal); M21.161 Varus deformity, not elsewhere classified, right knee; I10 Essential (primary) hypertension; E78.00 Pure hypercholesterolemia, unspecified; Z87.891 Personal history of nicotine dependence; Z79.82 Long term (current) use of aspirin; Z79.899 Other long term (current) drug therapy; K21.9 Gastro-esophageal reflux disease without esophagitis
CPT/HCPCS: 27447; S2900; 01402; 36415; 80048; 82962; 83735; 85025; 87081; 88305; 88311; 97162; C1776; J7120; J2405; J3475

== ENCOUNTER 2023-08-21 09:30 | Outpatient (RCR) | payer MEDICARE, SELFPAY ==
--- NOTE | 2023-07-21 09:01 | HP.PTEVAL ---
Patient's Visit Information Visit Information Visit Information: FRANSISCO ARDON is a 67 year old F referred to Physical Therapy by TAMIE Wilson with a diagnosis of R TKR. 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 She states that she has had bilateral knee pain for almost 10 years and choose to do the right knee first. She lives in a [place] home with her . The house has with 2 steps to enter the main floor and several to the basement. Patient states that she is relatively healthy and is active with her grand children. Pain Knee: Pain Intensity (Out of 10): 2 Pain Intensity Range: 1 and 9 Objective Objective: Ambulated 500 feet with rolling walker to exam room and appointment a little slower than normal gait. Incision site is healing well no drainage thru bandage and would like bandage on for another week. PROM is -5 extension and 105 flexion with soft end feel. About 2 inches swelling noted at knee. R 20 3 above patella 19.75 at patella and 16 3 below. L 17, 17.5 and 14. Difficulty performing a SLR was able to do a seated LAQ. Dorsal pedal pulse in palpable no calf tenderness denies and fever or chills. Balance/Special Test Scores WOMAC Total Score: 49 WOMAC Percentatge: 41.6700 Goals Goal 1:: Return DEMO HEP Goal Time Frame: 1 Week Goal 2:: Improve ROM by 10% Goal Time Frame: 2-4 Weeks Goal 3:: Begin light strengthening next visit. Goal Time Frame: 2-4 Weeks Goal 4:: Reduce Swelling by 1 inch at knee Goal Time Frame: 2-4 Weeks Goal 5:: Wean away from assistive device as her strengthening, ROM and balance improve Goal Time Frame: 6-8 Weeks Rehabilitation Potential Physical Therapy Diagnosis: R TKR with increased swelling and decreased ROM Rehabilitation Potential: Good Anticipated Interventions Patient/Client Instruction: Educate patient on: Condition and Plan of Care For the Purpose of:: To decrease swelling/inflammation, To increase ROM, To increase flexibility/ROM, To improve endurance and To assume or resume ADL's Therapeutic Exercise to Include: Strength training, Balance training, Flexibilty training, Gait and locomotor training and Active ROM For the Purpose of:: To decrease pain, To decrease swelling/inflammation, To increase ROM, To increase flexibility/ROM and To assume or resume ADL's Functional Training to Include: Gait training For the Purpose of:: To decrease swelling/inflammation, To increase ROM, To improve safety with gait and To assume or resume ADL's Manual Therapy Techniques to Include: Massage, Manual lymph drainage, Mobilization and Passive ROM For the Purpose of:: To decrease pain, To decrease swelling/inflammation, To increase ROM, To increase flexibility/ROM and To assume or resume ADL's Cryotherapy (ice pack, ice massage): Yes Vasopneumatic device: Yes Comment: Reduce swelling to within 1 inch of other For the Purpose of:: To decrease pain, To decrease swelling/inflammation, To increase ROM, To increase flexibility/ROM and To assume or resume ADL's Text: Thank you for the opportunity to evaluate your patient. For Medicare and Medicare HMO plans, please review the plan of care and approve it. It will need to be FAXED BACK to us at [phone] for Medicare purposes. For Medicare only, by signing this I certify the plan of care. Please let me know if there are questions or concerns regarding this plan of care. Physician Signature: Date:
--- NOTE | 2023-08-21 10:06 | HP.PTREVAL_ITS ---
Re-Evaluation Intro: TAMIE Wilson, It has been my pleasure to treat FRANSISCO SANTOYO over the last 13 visits for R TKR 07/16/23. Please see the progress note below for an update on the physical therapy plan of care! Subjective Subjective: I am feeling good Objective Objective/Function: R knee pain ranges from 2-8/10 R knee MMT: flex= 17, ext= 28 #F R knee ROM: 0-10-118 degrees Pt is I with HEP Plan Plan Plan: Discharge to [facility] Balance/Gait/Functional tests Balance/Special Test Scores WOMAC Total Score: 30 WOMAC Percentage: 68.7500 Goals Goals Goal 1:: Return DEMO HEP Goal Time Frame: 1 Week Goal Progress: Goal Met Goal 2:: Improve ROM by 10% Goal Time Frame: 2-4 Weeks Goal Progress: Goal Met Goal 3:: Begin light strengthening next visit. Goal Time Frame: 2-4 Weeks Goal Progress: Goal Met Goal 4:: Reduce Swelling by 1 inch at knee Goal Time Frame: 2-4 Weeks Goal Progress: Goal Met Goal 5:: Wean away from assistive device as her strengthening, ROM and balance improve Goal Time Frame: 6-8 Weeks Goal Progress: Goal Met Anticipated Interventions Anticipated Interventions Patient/Client Instruction: Educate patient on: Condition and Plan of Care For the Purpose of:: To decrease swelling/inflammation, To increase ROM, To increase flexibility/ROM, To improve endurance and To assume or resume ADL's Therapeutic Exercise to Include: Strength training, Balance training, Flexibilty training, Gait and locomotor training and Active ROM For the Purpose of:: To decrease pain, To decrease swelling/inflammation, To increase ROM, To increase flexibility/ROM and To assume or resume ADL's Functional Training to Include: Gait training For the Purpose of:: To decrease swelling/inflammation, To increase ROM, To improve safety with gait and To assume or resume ADL's Manual Therapy Techniques to Include: Massage, Manual lymph drainage, Mobilization and Passive ROM For the Purpose of:: To decrease pain, To decrease swelling/inflammation, To increase ROM, To increase flexibility/ROM and To assume or resume ADL's Cryotherapy (ice pack, ice massage): Yes Vasopneumatic device: Yes Comment: Reduce swelling to within 1 inch of other For the Purpose of:: To decrease pain, To decrease swelling/inflammation, To increase ROM, To increase flexibility/ROM and To assume or resume ADL's Re-Evaluation Ending Re-evaluation ending: Please do not hesitate to contact me at [phone] by phone or if you have questions or concerns regarding this new plan of care! Sincerely, Jerardo Baig, PT, ATC
== END 2023-08-21 19:00 | disposition home or self-care (01) ==
LOC: PT 09:30
PROVIDERS: PCP Family Medicine; Referring Provider Physician Assistant Surgical; Visit Provider Physician Assistant Surgical
DX: M17.0 Bilateral primary osteoarthritis of knee (principal); Z96.651 Presence of right artificial knee joint
CPT/HCPCS: 97016; 97110; 97140; 97162

== ENCOUNTER → 2023-11-13 | Outpatient (CLI) | payer MEDICARE, SELFPAY ==
--- NOTE | 2023-11-13 12:13 | US_ITS ---
INDICATION: Postmenopausal bleeding EXAMINATION: Ultrasound US Transvaginal Non-OB TECHNIQUE: Transvaginal (for optimal evaluation of the adnexa) pelvic ultrasound was performed. Grayscale, spectral waveform, and color flow Doppler evaluation of the adnexa. COMPARISON: Prior study dated: 10/28/2022 FINDINGS: UTERUS: , Heterogeneous with multiple small calcifications. The uterus measures 6.8 x 2.3 x 3.5 cm. Small hypoechoic area in the posterior wall of the uterus measuring about 6 mm similar to prior examination likely representing small fibroid. The endometrial stripe measures 4 mm in AP diameter which is within normal limits. RIGHT OVARY: 1.8 x 0.9 x 1.2 cm. Non-enlarged, normal echogenicity. There is normal arterial inflow and venous outflow present in the right ovary. LEFT OVARY: 3.1 x 2 x 2.5 cm. There is a 2.3 cm cyst in the left ovary. There is normal arterial inflow and venous outflow present in the left ovary. FREE FLUID: None. US/Transvaginal Non- IMPRESSION: 1. Probable small uterine fibroid. 2. Endometrium is within normal limits in thickness. Electronically Signed: Luis Harvey MD at 15:21 EDT ,
== END | disposition home or self-care (01) ==
PROVIDERS: PCP Family Medicine; Referring Provider Obstetrics & Gynecology; Visit Provider Obstetrics & Gynecology
DX: N95.0 Postmenopausal bleeding (principal)
CPT/HCPCS: 76830

== ENCOUNTER → 2023-11-19 | Outpatient (CLI) | payer MEDICARE, SELFPAY | END | disposition home or self-care (01) | LOC: LAB 17:26 | PROVIDERS: PCP Family Medicine; Referring Provider Obstetrics & Gynecology; Visit Provider Obstetrics & Gynecology | DX: N83.202 Unspecified ovarian cyst, left side (principal) ==

== ENCOUNTER → 2023-11-20 | Outpatient (CLI) | payer MEDICARE, SELFPAY ==
[2023-11-22 09:07] LABS: Cancer Antigen 125 12.8 U/mL (0.0-38.1); Carcinoembryonic Antigen 2.1 ng/mL (0.0-4.7)
== END | disposition home or self-care (01) ==
PROVIDERS: PCP Family Medicine; Referring Provider Obstetrics & Gynecology; Visit Provider Obstetrics & Gynecology
DX: N95.0 Postmenopausal bleeding (principal); N83.202 Unspecified ovarian cyst, left side
CPT/HCPCS: 36415; 82378; 86304

== ENCOUNTER → 2023-12-18 | Outpatient (CLI) | payer MEDICARE, SELFPAY ==
[2023-12-24 19:07] LABS: HPV APTIMA, High Risk Negative (Negative)
== END | disposition home or self-care (01) ==
LOC: LABSPEC 16:46
PROVIDERS: PCP Family Medicine; Referring Provider Obstetrics & Gynecology; Visit Provider Obstetrics & Gynecology
DX: Z12.4 Encounter for screening for malignant neoplasm of cervix (principal); N95.0 Postmenopausal bleeding
CPT/HCPCS: 87624; 88175; G0145

== ENCOUNTER → 2024-01-14 | Outpatient (CLI) | payer MEDICARE, SELFPAY ==
--- NOTE | 2024-01-14 12:34 | BI_ITS ---
MAMMOGRAPHY - BILATERAL SCREENING REASON FOR EXAM: Female, 68 years old. Routine annual screening examination. PERTINENT HISTORY: Non-contributory. TECHNIQUE: Digital bilateral breast giovanna (3D mammographic acquisition) in the CC and MLO projections. 2-D mediolateral oblique (MLO) and craniocaudad (CC) views of both breasts were obtained. CAD: Full Field Digital Mammography with Computer Added Detection was performed. COMPARISON: Comparison is made with prior study dated December 08, 2022 and July 15, 2021. FINDINGS: Breast Composition: There are scattered areas of fibroglandular density. There are no dominant masses or suspicious calcifications. Stable bilateral fat-containing axillary lymph nodes. No other significant abnormalities are identified. There has been no significant change since the prior study. BI/SCRN MAMM (CAD)W/GIOVANNA BILAT IMPRESSION: Stable bilateral screening mammogram. Yearly follow-up mammogram recommended. (A) ASSESSMENT CATEGORY: BIRADS Category 2: Benign. A letter regarding these results will be sent to the patient by the facility within 30 days. Approximately 10% of breast cancers are not detected by mammography. A normal mammogram should not delay biopsy of a clinically suspicious abnormality. [id number] Electronically Signed: Wade Chavarria MD at 13:48 EDT ,
--- NOTE | 2024-01-14 12:34 | US_ITS ---
PROCEDURE: ULTRASOUND OF THE FEMALE PELVIS - COMPLETE REASON FOR EXAM: Female, 68 years old. PMB TECHNIQUE: Transabdominal and Transvaginal TECHNICAL QUALITY: Adequate. COMPARISON: Pelvic ultrasound dated November 13, 2023. FINDINGS: The uterus is anteverted and is in a midline position. The uterus measures 7.1 x 3.2 x 2.5 cm. Stable posterior uterine body intramural fibroid measuring 5.5 mm. Redemonstration of diffuse vascular calcifications of the uterus which is of no clinical significance. The endometrium measures 3.6 mm in thickness, and is hyperechoic. There is no demonstrated endometrial mass. Normal uterine cervix. The right ovary is visualized. The right ovary measures 1.1 x 1.0 x 1.2 cm. There is no right ovarian cyst or ovarian mass. There is no visualized right adnexal mass or complex lesion. The left ovary is visualized. The left ovary measures 3.0 x 2.1 x 2.1 cm. Simple 2.3 cm left ovarian follicular cyst is unchanged from the prior study. There is no visualized left adnexal mass or complex lesion. Normal color vascular flow and Doppler signal is demonstrated in both ovaries. There is no fluid in the cul-de-sac. US/Transvaginal Non- IMPRESSION: 1. Tiny posterior uterine fibroid unchanged 2. Simple 2.3 cm left ovarian follicular cyst is unchanged from the prior study. 3. No visualized endometrial mass or abnormal thickening on this study. Postmenopausal bleeding should be evaluated by gynecology and direct examination/visualization. If symptoms continue also consider endometrial tissue sampling and pathologic evaluation. Electronically Signed: Jaime Shaikh MD at 16:00 EDT ,
== END | disposition home or self-care (01) ==
LOC: US 12:31
PROVIDERS: PCP Family Medicine; Referring Provider Obstetrics & Gynecology; Visit Provider Obstetrics & Gynecology
DX: Z12.31 Encounter for screening mammogram for malignant neoplasm of breast (principal); N95.0 Postmenopausal bleeding
CPT/HCPCS: 76830; 77063; 77067

== ENCOUNTER → 2024-06-06 | Outpatient (CLI) | payer MEDICARE, SELFPAY ==
--- NOTE | 2024-06-06 15:05 | CT_ITS ---
PROCEDURE: CT LEFT KNEE WITHOUT CONTRAST REASON FOR EXAM: Female, 68 years old. Preoperative planning for the MakoPlasty Robotic knee surgery. Knee pain. TECHNIQUE: Transaxial CT of the hip, knee and ankle were obtained. Coronal and sagittal reconstruction images of the knee were provided. Individualized dose optimization techniques were used for this CT. COMPARISON: None. FINDINGS: Standard protocol for the preoperative planning for the MakoPlasty robotic knee surgery was performed. Osteopenia with mild arthrosis of the left hip, tricompartmental arthrosis most marked medially and mild arthrosis of the tibiotalar joint. CT/Extremity Lower without Contra IMPRESSION: Preoperative MakoPlasty Robotic knee surgical CT evaluation with findings as described above. Electronically Signed: Remington Monsalve MD at 15:48 EST ,
== END | disposition home or self-care (01) ==
PROVIDERS: PCP Family Medicine; Referring Provider Student in an Organized Health Care Education/Training Program; Visit Provider Student in an Organized Health Care Education/Training Program
DX: M17.12 Unilateral primary osteoarthritis, left knee (principal)
CPT/HCPCS: 73700

== ENCOUNTER 2024-06-24 09:28 | Outpatient (RCR) | payer MEDICARE, SELFPAY ==
--- NOTE | 2024-08-16 13:12 | HP.PT.NRP ---
Patient Information Patient Information: FRANSISCO SANTOYO was seen in my office for initial evaluation on 06/24/24. The following Plan of Care was established for this patient: POC Established Initial Frequency: 1x/Week Initial Duration: 4-6 Weeks Anticipated Interventions Patient/Client Instruction: Educate patient on: Condition and Plan of Care For the Purpose of:: To decrease pain, To improve nutrient delivery to tissue, To improve muscle performance and motor function and To increase tolerance to activity/condition/position Therapeutic Exercise to Include: Balance training For the Purpose of:: To increase tolerance to activity/condition/position and To improve ability of physical actions for home/community/work/leisure Last Seen Last Seen: This patient was last seen in our office 06/24/24. Pertinent comments regarding their Physical therapy will appear below: Pt seen for one visit and POC established but could not return due to having a TKA performed and rehabbing for that. She has been in here numerous times since for TKA rehab and no concerns with dizziness that would warrant return to PT. i will discontinue at this time At this point I will be discontinuing this patient from physical therapy. I would be happy to see this patient again in the future if found appropriate by the physician. Thank you! Lg Hernandez, DPT, OCS, CSCS Balance/Gait/Functional tests Balance/Special Test Scores Functional Gait Assessment Score: 22 % Disability: 26.6700 Dizziness Score: 42
== END 2024-06-24 19:00 | disposition home or self-care (01) ==
LOC: PT 09:28
PROVIDERS: PCP Family Medicine; Referring Provider Family Medicine; Visit Provider Family Medicine
DX: R42 Dizziness and giddiness (principal)
CPT/HCPCS: 97161

== ENCOUNTER 2024-06-30 08:55 | Day surgery (SDC) | payer MEDICARE, SELFPAY ==
--- NOTE | 2024-06-07 12:53 | EKG12_ITS ---
Test Reason : PRE OP Blood Pressure : */* mmHG Vent. Rate : 81 BPM Atrial Rate : 81 BPM P-R Int : 188 ms QRS Dur : 130 ms QT Int : 380 ms P-R-T Axes : 43 48 19 degrees QTcB Int : 441 ms Normal sinus rhythm Right bundle branch block Abnormal ECG Confirmed by RADHA ESTEVES, LEONIE ([id number]), script editor WAN RIZZO ([id number]) on 06/08/2024 6:32:16 AM Referred By: Kurt Mcclellan Confirmed By: LEONIE GARCIA MD
[2024-06-07 14:09] LABS: Albumin, Serum 3.6 g/dL (3.2-5.0); Anion Gap 5 (5-15); BUN 15 mg/dL (7-18); BUN/Creat Ratio 15.5 RATIO (10-20); Calcium,Total 9.7 mg/dL (8.5-10.1); Chloride 108 mmol/L (98-107); Creatinine, Serum 0.97 mg/dL (0.55-1.02); EST Glomerular Filtration Rate 60 mL/min (>60); Est Glom Filt Rate - Afr Amer 73 mL/min (>60); Glucose 127 mg/dL (74-106); Magnesium 2.1 mg/dL (1.6-2.6); Potassium 4.4 mmol/L (3.5-5.1); Sodium Level 138 mmol/L (136-145)
--- NOTE | 2024-06-07 20:59 | PAT.ANESEVAL ---
Pre-Assessment Diagnosis/Proposed Procedure Planned Operative Procedure(s): (L) Total Knee Replacement Robotic Arm Kuldip Anesthesia History Anesthesia History - truer pinion and wheel: Anesthesia History - truer pinion and wheel Hx Hospitalization No 06/01/24 14:18 Any Problems With Anesthesia Yes: PONV 06/01/24 14:18 Cholinesterase deficiency No 06/01/24 14:18 You/Your Family Experience No 06/01/24 14:18 fever (hyperthermia) with Relationship Recent Exposure to Contagious No 07/16/23 05:51 Disease Does patient have nerve No 06/01/24 14:18 stimulator Patient instructed to have device shut off --Does patient have Pacemaker or ICD? When Was Last Pacemaker Check QUESTION #4 FULL TEXT: You/Your Family Experience fever (hyperthermia) with Anesthesia Last Oral Intake Last Oral intake: Last Oral Intake NPO since Meds taken in AM with sips of water? Meds patient instructed to take am of surgery PONV PONV - truer pinion and wheel: PONV - truer pinion and wheel Female Yes 06/01/24 14:18 HX of Motion Sickness Yes 06/01/24 14:18 HX of N/V After Surgery Yes 06/01/24 14:18 Non-Smoker Yes 06/01/24 14:18 Duration of Surgery greater Yes 06/01/24 14:18 than 60 minutes Number of Risk Factors 5 06/01/24 14:18 PONV Score Severe Risk 06/01/24 14:18 Height & Weight Height & Weight: Anesthesia: Height & Weight Height 5 ft 1 in 01/25/24 08:24 Respiratory Assessment Respiratory Assessment - truer pinion and wheel: Respiratory Tract Infection Hx - truer pinion and wheel Hx Respiratory Tract Infection No 06/01/24 14:18 STOP Sleep Apnea STOP Sleep Apnea - truer pinion and wheel: STOP Sleep Apnea - truer pinion and wheel Hx Hypertension Yes: CONTROLLED WITH MED 06/01/24 14:18 Hx Sleep Apnea Yes: DIAGNOSED, HAS NOT 06/01/24 14:18 GOTTEN CPAP YET DUE TO INSURANCE CPAP No 06/01/24 14:18 BIPAP No 06/01/24 14:18 Do you snore loudly (louder than talking or can be heard Do you often feel tired/ fatigued/ sleepy during daytime? Has anyone observed you stop breathing during sleep? STOP Results Positive 06/01/24 14:18 QUESTION #5 FULL TEXT : Do you snore loudly (louder than talking or can be heard through closed doors)? 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 Specify any problems Hx of Preganancy in last 3 N/A 06/01/24 14:18 Months Nurse Filling Out Transfusion NBU[facility]ER 06/01/24 14:18 & Questions: Date: 06/01/24 06/01/24 14:18 Time: 14:21 06/01/24 14:18 Patient unable to answer at this time (ie. confused, unrespo /Reproduction History /Reproductive History - truer pinion and wheel: /Reproductive Hx- truer pinion and wheel Hx Now Gestational Age (in weeks): EDC: Hx Hx Para Hx Section SAB No 06/01/24 14:18 PFSH Medical History (Updated 06/01/24 @ 14:28 by Melissa Foss) PONV (postoperative nausea and vomiting) Post-menopausal Alcohol use History of pain when walking Wears glasses Arthritis Bladder disease Former smoker Hypertension Right shoulder pain Bilateral primary osteoarthritis of knee Impingement syndrome, shoulder, left GERD (gastroesophageal reflux disease) High cholesterol Anxiety Home Medications ?Medication ?Instructions ?Recorded ?Last Taken ?Type amitriptyline 25 mg tablet 25 mg PO QHS 06/20/19 07/15/23 20:00 History simvastatin 20 mg tablet 20 mg PO DAILY 06/20/19 07/15/23 20:00 History promethazine 25 mg tablet 25 mg PO TID PRN nausea and 05/21/21 Unknown History vomiting metoprolol succinate 25 mg 50 mg PO DAILY 03/16/23 07/16/23 03:45 History tablet,extended release 24 hr naproxen 500 mg tablet 500 mg PO DAILY 06/29/23 07/10/23 History acetaminophen 500 mg capsule 500 mg PO Q6H PRN pain 07/16/23 07/15/23 History ascorbic acid (vitamin C) 500 mg 500 mg PO DAILY 07/16/23 Unknown History capsule famotidine 20 mg tablet 20 mg PO DAILY 07/16/23 07/16/23 03:45 History hydrocodone-acetaminophen 5-325mg 1 tab PO Q8H 07/16/23 Unknown History 5mg-325mg hyoscyamine sulfate 0.125 mg 0.125 mg PO 4X/DAY PRN muscle 07/16/23 Unknown History sublingual tablet spasms lactobacillus combo no.11 15 1 cap PO DAILY 07/16/23 07/10/23 History billion cell sprinkle capsule (Probiotic) meloxicam 7.5 mg tablet 7.5 mg PO DAILY 07/16/23 Unknown History sennosides 8.6 mg tablet 8.6 mg PO DAILY PRN constipation 07/16/23 Unknown History (Evac-U-Gen (sennosides)) Allergy/AdvReac Type Severity Reaction Status Date / Time No Known Allergies Allergy Verified 06/01/24 14:11 Family History Grandmother Diabetes Mother Heart disease Father Heart disease Esophageal cancer Surgical History (Updated 06/01/24 @ 14:28 by Melissa Foss) History of esophagogastroduodenoscopy (EGD) History of bladder surgery History of total right knee replacement (TKR) History of cataract extraction with lens replacement History of colonoscopy Social History Smoking Status: Former smoker alcohol intake: current details: social substance use type: does not use caffeine: Yes what type of physical activity do you participate in: walking seatbelt use: always do you feel safe at home: Yes additional social history: Deven- both are retired Audit: Pertinent Findings Pertinent Findings EKG Perinent findings: April 24, 2023. Normal sinus rhythm. Recommendation Anesthesia Recommendation Anesthesia recommendation: OPTIMIZED for anesthesia
[2024-06-10 15:08] LABS: Absolute Lymphocyte Count 2.28 X10^3/uL (0.83-4.51); Absolute Neutrophil Count 5.7 X10^3/uL (2.0-7.7); Basophil# 0.07 X10^3/uL; Basophil% 0.8 % (0-1); Eosinophil# 0.21 X10^3/uL; Eosinophils% 2.4 % (0-5); Hematocrit 43.8 % (37-47); Hemoglobin 13.3 g/dL (12.0-15.0); Lymphocyte # 2.28 X10^3/ul (0.83-4.51); Lymphocyte % 25.9 % (19-41); Mean Corp Hgb Conc 30.4 g/dL (32-36); Mean Corpuscular Hgb 25.9 pg (27.0-32.0); Mean Corpuscular Volume 85.4 fL (81-99); Mean Platelet Vol. 9.8 fl (6.2-12.0); Monocyte# 0.57 X10^3/uL; Monocyte% 6.5 % (0-10); NRBC Flagged by Analyzer 0 % (0-5); Neutrophil # 5.65 X10^3/uL (2.7-7.7); Neutrophil % 63.9 % (47-70); Platelet Count 341 K/mm3 (150-450); RBC Distribution Width CV 14.6 % (11.6-14.6); RBC Distribution Width SD 45.6 fl (35.1-43.9); Red Blood Count 5.13 M/mm3 (4.2-5.4); White Blood Count 8.8 K/mm3 (4.4-11.0)
[2024-06-30] VITALS (11 sets, daily range): BP systolic 102–135; BP diastolic 63–90; PULSE 84–103; RESP 12–22; TEMP 36.2–36.9; O2SAT 95–100; BMI 35.4
[2024-06-30] MEDS: 0.9% Normal Saline (1000mL) 1,000 ML 15 ML IV (09:43)
[2024-06-30] MEDS: Magnesium 1 GM over 15 mins IV (09:44)
[2024-06-30] MEDS: Celecoxib 200 MG Capsule 400 MG PO (09:44)
[2024-06-30] MEDS: Gabapentin 600 MG Tablet PO (09:44)
[2024-06-30] MEDS: Acetaminophen 500 MG Tablet 1000 MG PO (09:44)
[2024-06-30] MEDS: Lactated Ringers 1,000 ML 999 ML IV ×2 (09:51→13:15)
--- NOTE | 2024-06-30 10:14 | PCM.PRE.AN2 ---
ASA Classification* ASA Classification ASA Classification: 2 Assessment & Plan Anesthesia* Anesthesia Assessment Anesthesia Assessment: Discussed sedation and/or anesthesia options, risks, benefits, and alternatives with patient/parents/legal guardian/POA. Questions invited. The patient/parents/legal guardian/POA seems to understand and agrees to proceed with anesthesia plan. Reviewed the physical assessment, medical history, allergy history and patient home medications list prior to surgery/procedure/anesthetic and documented any changes. Performed airway and anesthesia risk assessments. Anesthesia Type Anesthesia Type: Spinal History Source History Obtained from:: Patient and Chart Anesthesia Focused Assessment* Temperature: 97.8 F Pulse Rate: 84 Blood Pressure: 130/90 Respiratory Rate: 16 Pulse Ox: 98 Oxygen Delivery Method: Room Air Airway Assessment Mouth opens: >3 cm Mallampati Score: II Teeth Condition: Intact and Caps/Crowns (and bidges) Neck Range of motion (ROM): Limited ROM Comment: mildly restricted neck ROM Focused Labs Anesthesia Preop lab: CBC WBC 8.8 K/mm3 (4.4-11.0) 06/10/24 14:15 06/10/24 RBC 5.13 M/mm3 (4.2-5.4) 06/10/24 14:15 06/10/24 Hgb 13.3 g/dL (12.0-15.0) 06/10/24 14:15 06/10/24 Hct 43.8 % (37-47) 06/10/24 14:15 06/10/24 Plt Count 341 K/mm3 (150-450) 06/10/24 14:15 06/10/24 CHEMISTRY Potassium 4.4 mmol/L (3.5-5.1) 06/07/24 13:07 06/07/24 Sodium 138 mmol/L (136-145) 06/07/24 13:07 06/07/24 Magnesium 2.1 mg/dL (1.6-2.6) 06/07/24 13:07 06/07/24 BUN 15 mg/dL (7-18) 06/07/24 13:07 06/07/24 Creatinine 0.97 mg/dL (0.55-1.02) 06/07/24 13:07 06/07/24 Glucose 127 mg/dL (74-106) H 06/07/24 13:07 06/07/24 POC Glucose 85 mg/dL (74-106) 07/16/23 06:14 07/16/23 COAG Pre-Assessment Diagnosis/Proposed Procedure Planned Operative Procedure(s): (L) Total Knee Replacement Robotic Arm Kuldip Anesthesia History 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 When Was Last Pacemaker Check QUESTION #4 FULL TEXT: You/Your Family Experience fever (hyperthermia) with Anesthesia Last Oral Intake Last Oral intake: Last Oral Intake NPO since 07:10 06/30/24 09:36 Meds taken in AM with sips of water? Meds patient instructed to take am of surgery PONV PONV - oceanic sciences professor: PONV - oceanic sciences professor Female Yes 06/01/24 14:18 HX of Motion Sickness Yes 06/01/24 14:18 HX of N/V After Surgery Yes 06/01/24 14:18 Non-Smoker Yes 06/01/24 14:18 Duration of Surgery greater Yes 06/01/24 14:18 than 60 minutes Number of Risk Factors 5 06/01/24 14:18 PONV Score Severe Risk 06/01/24 14:18 Height & Weight Height & Weight: Anesthesia: Height & Weight Height 5 ft 1 in 06/30/24 09:36 Weight: 85 kg 06/30/24 09:36 Body Mass Index (BMI) 35.4 06/30/24 09:36 Respiratory Assessment Respiratory Assessment - oceanic sciences professor: Respiratory Tract Infection Hx - oceanic sciences professor Hx Respiratory Tract Infection No 06/01/24 14:18 STOP Sleep Apnea STOP Sleep Apnea - oceanic sciences professor: STOP Sleep Apnea - oceanic sciences professor Hx Hypertension Yes: CONTROLLED WITH MED 06/24/24 09:33 Hx Sleep Apnea Yes: DIAGNOSED, HAS NOT 06/01/24 14:18 GOTTEN CPAP YET DUE TO INSURANCE CPAP No 06/01/24 14:18 BIPAP No 06/01/24 14:18 Do you snore loudly (louder than talking or can be heard Do you often feel tired/ fatigued/ sleepy during daytime? Has anyone observed you stop breathing during sleep? STOP Results Positive 06/01/24 14:18 QUESTION #5 FULL TEXT : Do you snore loudly (louder than talking or can be heard through closed doors)? 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 Specify any problems Hx of Preganancy in last 3 N/A 06/01/24 14:18 Months Nurse Filling Out Transfusion [facility] 06/01/24 14:18 & Questions: Date: 06/01/24 06/01/24 14:18 Time: 14:21 06/01/24 14:18 Patient unable to answer at this time (ie. confused, unrespo /Reproduction History /Reproductive History - oceanic sciences professor: /Reproductive Hx- oceanic sciences professor Hx Now Gestational Age (in weeks): EDC: Hx Hx Para Hx Section SAB No 06/01/24 14:18 Active Medications Active Medications: Current Medications Generic Name Dose Route Start Last Admin Trade Name Freq PRN Reason Stop Dose Admin Acetaminophen 1,000 mg 06/30/24 10:55 06/30/24 09:44 Acetaminophen 500 Mg Tablet PO 06/30/24 10:56 1,000 mg X1 ONE Administration Celecoxib 400 mg 06/30/24 10:55 06/30/24 09:44 Celecoxib 200 Mg Capsule PO 06/30/24 10:56 400 mg X1 ONE Administration Sodium Chloride 77.4 ml/ 0 ml 06/30/24 10:55 Ropivacaine 200 mg/ OPERA.SITE 06/30/24 10:56 Epinephrine HCl 0.6 mg/ X1 ONE Ketorolac Tromethamine 30 mg/ Morphine Sulfate 5 mg Dexamethasone Sodium Phosphate 10 mg 06/30/24 10:55 Dexamethasone 10 Mg/Ml Vial IV 06/30/24 10:56 X1 ONE Gabapentin 600 mg 06/30/24 10:55 06/30/24 09:44 Gabapentin 600 Mg Tablet PO 06/30/24 10:56 600 mg X1 ONE Administration Lactated Ringer's 1,000 mls @ 999 mls/hr 06/30/24 10:55 06/30/24 09:51 IV 06/30/24 11:55 999 mls/hr .Q1H1M SYLVIE Administration Cefazolin Sodium 2 gm/ N/A 20 mls @ 400 mls/hr 06/30/24 10:55 IV 06/30/24 10:57 PREOP ONE Tranexamic Acid 1,000 mg/ 110 mls @ 660 mls/hr 06/30/24 10:55 Sodium Chloride IV 06/30/24 11:04 X1 ONE Tranexamic Acid 1,000 mg/ 110 mls @ 660 mls/hr 06/30/24 11:55 Sodium Chloride IV 06/30/24 12:04 X1 ONE Lactated Ringer's 1,000 mls @ 999 mls/hr 06/30/24 11:55 IV 06/30/24 12:55 .Q1H1M SYLVIE Lactated Ringer's 1,000 mls @ 125 mls/hr 06/30/24 12:55 IV 06/30/24 20:54 .Q8H SYLVIE Magnesium Sulfate 1 gm/ 102 mls @ 408 mls/hr 06/30/24 10:55 06/30/24 09:44 Dextrose IV 06/30/24 11:09 408 mls/hr X1 ONE Administration Sodium Chloride 1,000 mls @ 15 mls/hr 06/30/24 09:45 06/30/24 09:43 IV 07/05/24 23:04 15 mls/hr .Q48H SYLVIE Administration Protocol Insulin Human Lispro 1 - 6 unit 06/30/24 10:55 Insulin Lispro 100 Unit/Ml Insuln.Pen SC 06/30/24 16:55 Q4H PRN PRN BG>/= 180, SEE PROTOCOL Protocol PFSH Medical History (Updated 06/01/24 @ 14:28 by Melissa Foss) PONV (postoperative nausea and vomiting) Post-menopausal Alcohol use History of pain when walking Wears glasses Arthritis Bladder disease Former smoker Hypertension Right shoulder pain Bilateral primary osteoarthritis of knee Impingement syndrome, shoulder, left GERD (gastroesophageal reflux disease) High cholesterol Anxiety Home Medications ?Medication ?Instructions ?Recorded ?Last Taken ?Type amitriptyline 25 mg tablet 25 mg PO QHS 06/20/19 06/29/24 History simvastatin 20 mg tablet 20 mg PO DAILY 06/20/19 06/29/24 History promethazine 25 mg tablet 25 mg PO TID PRN nausea and 05/21/21 Unknown History vomiting metoprolol succinate 25 mg 50 mg PO DAILY 03/16/23 06/29/24 History tablet,extended release 24 hr naproxen 500 mg tablet 500 mg PO DAILY 06/29/23 07/10/23 History Held on 06/30/24. Instructions: while on meloxicam acetaminophen 500 mg capsule 500 mg PO Q6H PRN pain 07/16/23 07/15/23 History ascorbic acid (vitamin C) 500 mg 500 mg PO DAILY 07/16/23 06/29/24 History capsule famotidine 20 mg tablet 20 mg PO DAILY 07/16/23 06/29/24 History hydrocodone-acetaminophen 5-325mg 1 tab PO Q8H PRN pain 07/16/23 Unknown History 5mg-325mg hyoscyamine sulfate 0.125 mg 0.125 mg PO 4X/DAY PRN muscle 07/16/23 06/29/24 History sublingual tablet spasms lactobacillus combo no.11 15 1 cap PO DAILY 07/16/23 06/29/24 History billion cell sprinkle capsule (Probiotic) meloxicam 7.5 mg tablet 7.5 mg PO DAILY 07/16/23 Unknown History sennosides 8.6 mg tablet 8.6 mg PO DAILY PRN constipation 07/16/23 06/29/24 History (Evac-U-Gen (sennosides)) oxycodone 5 mg tablet 5 - 10 mg PO Q4H PRN PRN pain 06/30/24 Unknown History Allergy/AdvReac Type Severity Reaction Status Date / Time No Known Allergies Allergy Verified 06/30/24 09:02 Family History Grandmother Diabetes Mother Heart disease Father Heart disease Esophageal cancer Surgical History (Updated 06/01/24 @ 14:28 by Melissa Foss) History of esophagogastroduodenoscopy (EGD) History of bladder surgery History of total right knee replacement (TKR) History of cataract extraction with lens replacement History of colonoscopy Social History Smoking Status: Former smoker alcohol intake: current details: social substance use type: does not use caffeine: Yes what type of physical activity do you participate in: walking seatbelt use: always do you feel safe at home: Yes additional social history: Deven- both are retired Review of Systems (Anesthesia) ROS Narrative System reviewed and no additional complaints, except as documented.
[2024-06-30 10:49] LABS: Bedside Glucose 75 mg/dL (74-106)
--- NOTE | 2024-06-30 10:55 | KNEE_PTH ---
PATIENT: FRANSISCO SANTOYO LOC: [facility] [place] U#:[id number] AGE/SX: 68/F ROOM: RE06/30/[address]: Dr. Kurt Mcclellan DO : 1955 BED: DIS: 06/30/2024 SPEC #: [id number] RECD: 06/30/24 13:06 STATUS: HI SPRINGER #: [id number] SLIME: 06/30/24 10:[address]: Kurt Mcclellan DEPT: SURGICAL PATHOLOGY RECD BY: Jim Bassett ENTERED: 06/30/24 13:27 SP TYPE: TOTAL KNEE OTHR DR: Dr. Cash Santamaria MD Tissues: Knee, NOS Procedures: Decalcification bone/plaque Surgery Specimen Level IV HEADER OPERATION: Total knee replacement robotic arm assist PRE-OP DIAGNOSIS: Grade IV osteoarthritis left knee, arthritis, high blood pressure hypercholesterolemia TISSUE SUBMITTED: Left knee bone and tissue MICROSCOPIC DIAGNOSIS Bone and soft tissue, left knee, total knee replacement/resection: Pieces of bone with degenerative osteoarthritic changes. Fibrocartilaginous tissue and reactive synovial tissue. : 07/06/2024 MICROSCOPIC DESCRIPTION Slides are reviewed. GROSS DESCRIPTION Received is one container designated bone and soft tissue left knee. The specimen consists of multiple fragments of law-yellow bone measuring in aggregate 10.5 x 10 x 2.5 cm. Also in the specimen container are two pieces of fibrocartilaginous tissue measuring in aggregate 6.5 x 3 x 1.5 cm. A number of bony fragments contain articular surfaces consistent with tibial plateau and femoral condyle and displaying prominent osteophyte formation, eburnation and bone erosion. [employer] sections are submitted in two cassettes as follows: 1 - soft tissue, 2 - bone after decalcification. / PAUL. 06/30/2024 TC:5 CPT: 15785, 82170
[2024-06-30] MEDS: TXA 1000mg in NS100 100ml (IVPB at Incision) 660 MG IV (11:07)
[2024-06-30] MEDS: Cefazolin 2 GM in Syringe 10 ML IV (11:07)
[2024-06-30] MEDS: dexAMETHasone 10 MG/ML Vial IV (11:21)
[2024-06-30] MEDS: TXA 1000mg in NS100 100ml (IVPB at Closure) 660 MG IV (11:55)
[2024-06-30] MEDS: JPS (Morphine 10mg/ml) OPERA.SITE (12:25)
--- NOTE | 2024-06-30 13:13 | OP.PCM_ITS ---
Operative Report (Standard) Operative Information Date of Procedure: 06/30/24 Pre-Operative Diagnosis: Left knee osteoarthritis Post-Operative Diagnosis: Left knee osteoarthritis Surgery/Procedure Performed: Robotic arm assisted left total knee arthroplasty family law mediator: Yes Combination Saw Operator: Chikis García Tasks completed by inside sales assistant: Opening, Closing, Dissecting tissue, Implanting device, Hemostasis: Electrocautery and Retracting Type of Anesthesia: Spinal RN Documented Start/Stop Times: Operation Date: 06/30/24 10:55 Case Time Into Pre-Op 06/30/24 09:03 Anesthesia Start 06/30/24 10:59 Into Room 06/30/24 10:59 Out of Pre-Op 06/30/24 11:02 Procedure Start 06/30/24 11:18 Procedure End 06/30/24 12:45 Anesthesia End 06/30/24 12:48 Out of Room 06/30/24 12:48 Into Recovery 06/30/24 12:57 Procedure Start Time: 11:18 Procedure Stop Time: 12:45 Select all DRAINS/GRAFTS/IMPLANTS that apply: Implanted device Implanted device details: Nelia triathlon CR femur size #3, Nelia triathlon primary tibial b aseplate size #3, triathlon X3 tibial bearing insert CS size #11 Estimated Blood Loss: 50 cc Specimen collected: Yes Description of specimen(s) removed: Left total knee resections Description of surgery: Patient was identified in the preoperative holding area by name, medical record number, and date of . Informed consent was confirmed with the patient. The operative knee was marked with a surgical marker. At time of her procedure, patient brought to the operative suite and positioned supine a standard operating table. Anesthesia then administered a spinal anesthetic. She was then repositioned in the supine position with all bony prominences well-padded. We then placed a well-padded pneumatic tourniquet on the left upper thigh. The left upper extremity was brought across patient's chest throughout the procedure. We then prepped and draped the left lower extremity in a normal, sterile orthopedic fashion. We performed a timeout with all parties in attendance in agreement with the side, site, operation be performed. No concerns were voiced and would like to proceed with surgery. 2 g Ancef was administered prior to the incision by anesthesia staff as well as 1 g IV TXA. First exsanguinated the left lower extremity with a Esmarch bandage. Tourniquet was inflated to 250 mmHg which remained up for approximately 65 minutes. Esmarch was removed. I planned a standard midline approach to the left knee approximately 15 cm in length. Skin was sharply incised with a 10 blade scalpel developing full-thickness layers down to the retinaculum. Layers were developed identifying the VMO. I then planned a standard medial parapatellar arthrotomy performed in flexion. The anterior horn of the medial meniscus was released. Hoffa's fat pad was then released. I then everted the patella in extension and brought the knee into 90 degrees of flexion. The anterior horn of the lateral meniscus was then released. The ACL was split in its mid substance with a 10 blade. We then brought the knee back into extension. I measured the outer diameter of the patella and appropriately sized patellar reamer was then selected. I measured the thickness of the patella to be 26 mm. I then reamed the patella to a depth of approximately 16 mm. A protective baseplate was then placed on the patella. I then placed pins in the metaphyseal distal femur medial to lateral for the Lucas arrays. In similar fashion, I made 2 stab incisions approximately a handsbreadth distal to the tibial tubercle along the medial aspect of the tibia, drilling 2 bicortical pins for the tibial array. The knee was brought into flexion. The patella was subluxed laterally but not everted. Medial and lateral retractors were placed. We then utilized the [employer] software to confirm our planned surgical procedure and oriented with the patient's osseous anatomy. All checks with the [employer] system were confirmed. Patient had a significant fixed varus deformity after performing stress examination utilizing the [employer] software. We elected to place the tibial baseplate in 1 degree of varus to allow for appropriate balancing. Sawblade was then brought in. I first started with the tibial cut, ensuring protection of the MCL and patellar tendon. A tibial wafer was then excised. I then proceeded to make the posterior femoral, anterior, anterior chamfer cuts with the same blade. Ligaments were protected with [employer] retractors. Sawblade was then exchanged to perform the distal femoral and posterior chamfer cuts. The robot was then removed from the surgical field. Remaining loose bone and meniscus was excised carefully. Posterior osteophytes were removed from the distal femur with a curved osteotome and rongeur. Trial components were then placed. Balance was excellent in both extension and 90 degrees flexion with an 11 mm polyethylene insert. No mid flexion instability was apparent. I then drilled for a size 29 patella. Patella was trialed. Tracking was excellent. We then marked for tibial baseplate. Distal femoral pegs were drilled. Tibial keel was punched. Trials were removed. Periarticular block was administered. The wound was copiously irrigated with normal saline solution. Simplex cement was then mixed on the back table. Components were then cemented in place with e xcess cement being removed. Cement was allowed to cure with the components in full extension utilizing a 11 mm trial polyethylene component. While the cement was curing, sterile dilute Betadine 3-minute soak was performed. After cement had cured fully, trial polyethylene was removed. Tourniquet was deflated. Hemostasis was excellent. An additional 1 g TXA was administered IV. I selected a size 11 mm polyethylene which was placed and impacted per swatch folder recommendations. Final components appeared very well balanced with excellent range of motion. There was no significant remaining flexion contracture. The wound was copiously irrigated with normal saline solution. Capsule was closed watertight with #1 strata fix barbed suture. Deeper bursal layer was reapproximated with 0 Vicryl suture. Dermis was reapproximated buried interrupted 2-0 Vicryl suture. Skin was finally reapproximated sadiq. Patient tolerated the procedure well without apparent complication. She was sa adri awakened in the operative suite, transferred to his hospital bed and subsequently to PACU in stable condition. Post Operative Plan: Plan for same-day discharge home as an outpatient left total knee arthroplasty. After spinal anesthesia wears off we will mobilize the patient with therapy and nursing staff. As long as criteria are met, we will plan for discharge home today. Outpatient physical therapy has been scheduled for postoperative day #5. Weightbearing: Range of motion and weightbearing as tolerated left lower extremity. Antibiotics: Ancef 2 g every 8 hours x 3 doses DVT Prophylaxis: Multimodal with 81 mg ASA BID, SCDs, PEDRO hose and early mobilization Lorenzo: None Dressing: Maintain silver dressing x5 days X-Rays: 2-week x-rays in the office. Follow-up: 2 weeks in my office for staple removal Surgical Findings: Severe left knee osteoarthritis. Good balancing with excellent patellar tracking after final implantation Complications Complications: No Admit VTE Documentation VTE Present on Admission: No VTE Mechan Device Prophylaxis: Thigh High PEDRO Hose VTE Pharm Prophylaxis ordered?: Yes
--- NOTE | 2024-06-30 13:17 | PCM.POST.ANE ---
Anesthesia: Postop Eval I Current Vital Signs Temperature: 98.5 F Pulse Rate: 91 Blood Pressure: 102/65 Respiratory Rate: 22 Pulse Ox: 100 Oxygen Delivery Method: Nasal Cannula Oxygen Flow Rate (L/min): 3 Assessment Airway patent: Yes Spontaneous unlabored respirations: Yes Mental status: Awake nausea: No Vomiting: No Anesthesia Complication: No Fluid Hydration Crystalloid volume administer (ml): 2,000 Total IV fluid infused: 2,000 Progress Note Anesthesia document: Postop Eval 1 completed: Yes
[2024-06-30] MEDS: Cefazolin 1 GM/50 ML BAG IV (15:35)
--- NOTE | 2024-06-30 16:14 | POSTOPAN2_ITS ---
Anesthesia Postop Eval I Sum Postop Eval Completion status Anesthesia document: Postop Eval 1 completed: Yes Anesthesia Postop Eval I Summary Anesthesia Postop Eval I Summary: Anesthesia Postop Eval I: Assessment Summary Airway patent Yes 06/30/24 13:18 ASSOCIATE PROFESSOR OF COMMUNICATION.RWOO Spontaneous unlabored Yes 06/30/24 13:18 ASSOCIATE PROFESSOR OF COMMUNICATION.RWOO respirations Mental status Awake 06/30/24 13:18 ASSOCIATE PROFESSOR OF COMMUNICATION.RWOO nausea No 06/30/24 13:18 ASSOCIATE PROFESSOR OF COMMUNICATION.RWOO Vomiting No 06/30/24 13:18 ASSOCIATE PROFESSOR OF COMMUNICATION.RWOO Anesthesia Postop Eval I: Fluid Summary Crystalloid volume administer 2,000 06/30/24 13:18 ASSOCIATE PROFESSOR OF COMMUNICATION.RWOO (ml) Colloids volume administered ( ml) Blood Product volume administered (ml) Total IV fluid infused 2,000 06/30/24 13:18 ASSOCIATE PROFESSOR OF COMMUNICATION.RWOO Anesthesia Postop Eval I: Summary Notes Anesthesia Complication No 06/30/24 13:18 ASSOCIATE PROFESSOR OF COMMUNICATION.RWOO Anesthesia Complication Comment: Post-operative progress note Anesthesia: Postop Eval II Evaluation Mental status: Awake and Calm Pain Level: 0 nausea: No Vomiting: No Complications Anesthesia Complication: No
--- NOTE | 2024-06-30 16:14 | PCM.POSTANE2 ---
Anesthesia Postop Eval I Sum Postop Eval Completion status Anesthesia document: Postop Eval 1 completed: Yes Anesthesia Postop Eval I Summary Anesthesia Postop Eval I Summary: Anesthesia Postop Eval I: Assessment Summary Airway patent Yes 06/30/24 13:18 OPERATIONS ADVISOR.RWOO Spontaneous unlabored Yes 06/30/24 13:18 OPERATIONS ADVISOR.RWOO respirations Mental status Awake 06/30/24 13:18 OPERATIONS ADVISOR.RWOO nausea No 06/30/24 13:18 OPERATIONS ADVISOR.RWOO Vomiting No 06/30/24 13:18 OPERATIONS ADVISOR.RWOO Anesthesia Postop Eval I: Fluid Summary Crystalloid volume administer 2,000 06/30/24 13:18 OPERATIONS ADVISOR.RWOO (ml) Colloids volume administered ( ml) Blood Product volume administered (ml) Total IV fluid infused 2,000 06/30/24 13:18 OPERATIONS ADVISOR.RWOO Anesthesia Postop Eval I: Summary Notes Anesthesia Complication No 06/30/24 13:18 OPERATIONS ADVISOR.RWOO Anesthesia Complication Comment: Post-operative progress note Anesthesia: Postop Eval II Evaluation Mental status: Awake and Calm Pain Level: 0 nausea: No Vomiting: No Complications Anesthesia Complication: No
[2024-06-30] MEDS: oxyCODONE 5 MG Tablet PO (16:21)
== END 2024-06-30 17:36 | disposition home or self-care (01) ==
LOC: SDC 08:56 → AC 09:13
PROVIDERS: PCP Family Medicine; Referring Provider Student in an Organized Health Care Education/Training Program; Visit Provider Student in an Organized Health Care Education/Training Program
PROC: 0SRD0JZ Replacement of Left Knee Joint with Synthetic Substitute, Open Approach (ICD-10-PCS; CPT 27447; principal; 2024-06-30 10:25)
DX: M17.12 Unilateral primary osteoarthritis, left knee (principal); I10 Essential (primary) hypertension; E78.00 Pure hypercholesterolemia, unspecified; Z96.651 Presence of right artificial knee joint; Z79.899 Other long term (current) drug therapy; Z87.891 Personal history of nicotine dependence
CPT/HCPCS: 27447; S2900; 01402; 64447; 36415; 80048; 82040; 82962; 83735; 85025; 87081; 88305; 88311; 93005; 97162; C1776; J2405; J3475

== ENCOUNTER 2024-08-03 12:00 | Outpatient (RCR) | payer MEDICARE, SELFPAY ==
--- NOTE | 2024-08-03 14:04 | HP.PTDCSUM ---
Discharge Summary D/C summary: It has been my pleasure to treat FRANSISCO SANTOYO referred by Dr. Kurt Mcclellan DO, with the diagnosis of L TKA 06/30/24 for a total of 10 visit(s). Discharge Date: Please see the following information for a summary of their discharge status. Subjective Subjective: I am ready to continue on my own. Pain L knee pain: Pain Intensity (Out of 10): 0 SI: Pain Intensity (Out of 10): 0 IT , L side only: Pain Intensity (Out of 10): 0 Overall Improvement % Improvement: 70 Objective Objective/Function: L knee pain ranges from 0-5/10 L knee ROM: 0-5-115 degrees L knee MMT: flex= 14, ext= 32 #F Pt is I with HEP and gym routine Goals Goal 1:: Decrease L knee pain x 50% to aid with sleep Goal Progress: Goal Met Goal 2:: Increase L knee ROM x 30 degrees to aid with restoring a more normalized gait pattern Goal Progress: Goal Met Goal 3:: Increase L knee strength x 10#F to aid with stair negotiation Goal Progress: Goal Met Goal 4:: I with HEP Goal Progress: Goal Met Plan Plan: Discharge to HEP D/C Information d/c sentence: If there are questions or concerns regarding this patient's physical therapy, please feel free to call me at [phone]. Thank you for the referral of this patient. Sincerely, Jerardo Baig, PT, ATC Balance/Gait/Functional tests Balance/Special Test Scores WOMAC Total Score: 28 WOMAC Percentage: 70.8400 Improvement % Improvement: 70
== END 2024-08-03 19:00 | disposition home or self-care (01) ==
LOC: PT 12:00
PROVIDERS: PCP Family Medicine; Referring Provider Student in an Organized Health Care Education/Training Program; Visit Provider Student in an Organized Health Care Education/Training Program
DX: Z47.1 Aftercare following joint replacement surgery (principal); M25.562 Pain in left knee; M17.12 Unilateral primary osteoarthritis, left knee
CPT/HCPCS: 97016; 97110; 97161; 97530

== ENCOUNTER → 2025-01-25 | Outpatient (CLI) | payer MEDICARE, SELFPAY ==
--- NOTE | 2025-01-25 12:45 | BI_ITS ---
EXAM: SCRN MAMM (CAD)W/GIOVANNA BILAT DATE: 01/25/2025 CLINICAL HISTORY: F, Age 69 y/o , SCREEN FOR BREAST CANCER No family history. TECHNIQUE: Procedure Code: [id number] Modality: MG Procedure: SCRN MAMM (CAD)W/GIOVANNA BILAT COMPARISON: Prior exam(s) dated January 14, 2024.. FINDINGS: TISSUE DENSITY: There are scattered areas of fibroglandular density. Bilateral Breast Mammographic Findings: No significant masses, calcifications or other abnormalities are identified. Stable small benign-appearing bilateral axillary lymph nodes. No suspicious masses, areas of developing architectural distortion, or suspicious calcifications. There has been no significant interval change. BI/SCRN MAMM (CAD)W/GIOVANNA BILAT IMPRESSION: Stable screening bilateral mammogram. OVERALL FINAL ASSESSMENT BI-RADS 2: BENIGN RECOMMENDATION: Routine annual follow-up in 1 Year A letter with findings and recommendations will be mailed to the patient. Reading Location: [place] [id number]
--- OUTSIDE RECORDS SUMMARY | 2025-01-25 19:56 | XMS RPT_ITS | CCD ---
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 Cash Santamaria Primary Care Provider [phone] Dr. Cash Santamaria Referring Provider [phone] TAMIE Avila Attending Provider [phone] Dr. Rakesh Conley Attending Provider [phone] Guillermina BOX FEEDER, JOANA-C Mony Attending Provider [phone] Dr. Amie Parrish Attending Provider [phone] TAMIE Puga Attending Provider [phone] Dr. Cash Santamaria Primary Care Provider [phone] Dr. Cash Santamaria Referring Provider [phone] Dr. Amie Parrish Attending Provider [phone] TAMIE Puga Attending Provider [phone] Guillermina BERNARD, JAONA-C Mony Attending Provider [phone] MD Lobito Batres Attending Provider [phone] Dr. Rakesh Conley Attending Provider [phone] Cash Santamaria Primary Care Provider [phone] Dr. Cash Santamaria Referring Provider [phone] Dr. Amie Parrish Attending Provider [phone] Dr. Cash Santamaria Primary Care Provider [phone] Dr. Cash Santamaria Referring Provider [phone] Dr. Amie Parrish Attending Provider [phone] MD Lobito Batres Attending Provider [phone] Dr. Cash Santamaria Primary Care Provider Dr. Cash Santamaria Referring Provider MD Lobito Batres Attending Provider Dr. Rakesh Conley Attending Provider Dr. Amie Parrish Attending Provider Dr. Cash Santamaria Referring Provider [phone] Dr. Amie Parrish Attending Provider Dr. Cash Santamaria Primary Care Provider Dr. Amie Parrish Attending Provider Dr. Cash Santamaria Primary Care Provider Dr. Cash Santamaria Referring Provider [phone] MD Lobito Batres Attending Provider Dr. Alexandra Townsend Attending Provider Dr. Kurt Mcclellan Referring Provider Guillermina BOX FEEDER, BOX FEEDER-C Mony Attending Provider Dr. Cash Santamaria Primary Care Provider [phone] Dr. Cash Santamaria Referring Provider [phone] Cash Santamaria MD Primary Care Provider Dr. Kurt Mcclellan DO Attending Provider [phone] Dr. Kurt Mcclellan DO Referring Provider Dr. Alexandra Townsend MD Attending Provider Dr. Cash Santamaria MD Attending Provider [phone] Dr. Cash Santamaria MD Referring Provider Kurt Mcclellan Attending Unavailable Cash Santamaria Primary Care Unavailable Kurt Mcclellan Referring Unavailable Kurt Mcclellan Attending Unavailable Kurt Mcclellan Referring Unavailable Cash Santamaria Primary Care Unavailable Cash Santamaria Attending Unavailable Cash Santamaria Referring Unavailable Cash Santamaria Primary Care Unavailable Amie Parrish Attending Unavailable Amie Parrish Referring Unavailable [facility] Cash Primary Care Unavailable Amie Parrish Attending Unavailable [facility] Unavailable [facility] Referring Unavailable Alexandra Townsend Attending UnavailKurt Yan Referring Unavailable [facility] Unavailable Kurt Mcclellan Attending Unavailable Kurt Mcclellan Referring Unavailable [facility] Unavailable Medications Current Medications Medication Drug Class(es) Dates Sig (Normalized) Sig (Original) acetaminophen 500 mg oral capsule (4 sources) Start: 07-16-2023 take 1 capsule by mouth every six hours as needed for pain Acetaminophen 500 mg capsule Active 500 mg PO EVERY 6 HOURS as needed for pain July 16, 2023 1:00am acetaminophen 325 mg / HYDROcodone bitartrate 5 mg oral tablet (14 sources) Opioid Agonist Start: 07-16-2023 Hydrocodone-Acetami nophen 5-325 mg tablet Active 1 {tbl} PO Q8H as needed for pain July 16, 2023 1:00am Start: 07-16-2023 take 1 tablet by yarelis th every eight hours Hydrocodone-Acetaminophen Active 1 TABLE T PO Q8H July 16, 2023 12:00am Start: 06-20-2019 take 1 tablet by yarelis th at bedtime Hydrocodone-Acetaminophen Active 1 TABLE T PO AT BEDTIME June 20, 2019 12:00am amitriptyline hydrochloride 25 mg oral tablet (14 sources) Tricyclic Antidepressant Start: 06-20-2019 take 1 tablet by mouth at bedtime Amitriptyline 25 mg tablet Active 25 mg PO AT BEDTIME June 20, 2019 1:00am ascorbic acid 500 mg oral capsule (4 sources) Vitamin C Start: 07-16-2023 take 1 capsule by mouth once daily Ascorbic Acid (Vitamin C) 500 mg capsule Active 500 mg PO DAILY July 16, 2023 1:00am Start: 07-16-2023 take 500 mg by mouth every eight hours as needed Ascorbic Acid (Vitamin C) Active 500 MG PO EVERY 8 HOURS NEEDED July 16, 2023 12:00am oxyquinoline sulfate 0.60961 mg/mg / sodium dodecyl sulfate 0.0001 mg/mg vaginal gel (2 sources) Start: 04-28-2023 Oxyquinoline-Sod.Lauryl Sulfat (Trimo-Tee Jelly) 0.025-0.01 % gel Active 0 VAGINAL .COMPLEX 113.4 April 28, 2023 12:00am 1 application VAGINAL once a week; famotidine 20 mg oral tablet (20 sources) Histamine-2 Receptor Antagonist Start: 07-16-2023 take 1 tablet by mouth once daily Famotidine 20 mg tablet Active 20 mg PO DAILY July 16, 2023 1:00am Start: 06-26-2020 End: 04-08-2021 take 1 tablet by mouth twice daily before mealtime Famotidine (Pepcid Ac) 20 mg tablet Discontinued 20 mg PO TWICE A DAY June 26, 2020 2:10pm April 08, 2021 1:52pm Start: 06-20-2019 End: 06-26-2020 take 1 tablet by mouth once daily before mealtime Famotidine (Pepcid Ac) 20 mg tablet Discontinued 20 mg PO DAILY June 20, 2019 1:00am June 26, 2020 2:11pm hyoscyamine sulfate 0.125 mg sublingual tablet (14 sources) Start: 07-16-2023 take 1 tablet by mouth four times daily as needed for muscle spasms Hyoscyamine Sulfate 0.125 mg tablet, sublingual Active 0.125 mg PO 4 TIMES DAILY as needed for muscle spasms July 16, 2023 1:00am Start: 06-20-2019 take 0.375 mg by yarelis th every twelve hours Hyoscyamine Sulfate Active 0.375 MG PO Q12H June 20, 2019 12:00am Lactobacillus Combo No.11 (Probiotic) 15 billion cell capsule, sprinkle (4 sources) Start: 07-16-2023 Lactobacillus Combo No.11 (Probiotic) 15 billion cell capsule, sprinkle Active 1 NMA PO DAILY July 16, 2023 1:00am do not crush/chew/cut; swallow whole OR may open and sprinkle in cold drink/food Start: 07-16-2023 take 1 capsule by mo uth once daily Lactobacillus Combo No.11 (Probiotic) 15 billion cell capsule, sprinkle Active 1 CAP PO DAILY July 16, 2023 12:00am do not crush/chew/cut; swallow whole OR may open and sprinkle in cold drink/food meloxicam 7.5 mg oral tablet (14 sources) Nonsteroidal Anti-inflammatory Drug Start: 07-16-2023 take 1 tablet by mouth once daily Meloxicam 7.5 mg tablet Active 7.5 mg PO DAILY July 16, 2023 1:00am Start: 09-06-2021 take 15 mg by mouth once daily Meloxicam Active 15 MG PO DAILY September 05, 2021 11:00pm 24 hr metoprolol succinate 25 mg extended release oral tablet (6 sources) beta-Adrenergic Lucy Start: 03-16-2023 Metopr olol Succinate 25 mg tablet extended release 24 hr Active 50 mg PO DAILY March 16, 2023 1:00am Start: 03-16-2023 take 50 mg by mouth once daily Metoprolol Succinate Active 50 MG PO DAILY March 16, 2023 12:00am Start: 03-16-2023 take 25 mg by mouth once daily Metoprolol Succinate Active 25 MG PO DAILY March 16, 2023 12:00am naproxen 500 mg oral tablet (20 sources) Nonsteroidal Anti-inflammatory Drug Start: 06-29-2023 take 1 tablet by mouth once daily Naproxen 500 mg tablet Active 500 mg PO DAILY June 29, 2023 1:00am On Hold: while on meloxicam Start: 06-29-2023 take 500 mg by mouth every twelve hours Naproxen Active 500 MG PO Q12H June 29, 2023 12:00am Start: 05-21-2021 End: 09-06-2021 take 1 tablet by mouth twice daily as needed for pain Naproxen 500 mg tablet Discontinued 500 mg PO TWICE A DAY as needed for pain May 21, 2021 1:00am September 06, 2021 2:29pm Start: 06-20-2019 End: 04-08-2021 take 1 tablet by mouth twice daily Naproxen 500 mg tablet Discontinued 500 mg PO TWICE A DAY June 20, 2019 1:00am April 08, 2021 1:52pm omeprazole 20 mg delayed release oral capsule (2 sources) Proton Pump Inhibitor Start: 03-16-2023 take 20 mg by mouth once daily Omeprazole Active 20 MG PO DAILY March 16, 2023 12:00am oxyCODONE hydrochloride 5 mg oral tablet (6 sources) Opioid Agonist Start: 06-30-2024 take 5-10 mg by mouth every four hours as needed for pain Oxycodone 5 mg tablet Active 5 - 10 mg PO EVERY 4 HOURS NEEDED as needed for pain June 30, 2024 1:00am Start: 07-16-2023 End: 06-01-2024 take 1 tablet by mouth every four hours as needed for pain Oxycodone 5 mg tablet Discontinued 5 mg PO Q4H as needed for pain July 16, 2023 1:00am June 01, 2024 3:15pm promethazine hydrochloride 25 mg oral tablet (20 sources) Phenothiazine Start: 05-21-2021 take 1 tablet by mouth three times daily as needed for nausea and vomiting Promethazine 25 mg tablet Active 25 mg PO THREE TIMES A DAY as needed for nausea and vomiting May 21, 2021 1:00am Start: 06-20-2019 End: 04-08-2021 take 1 tablet by mouth three times daily as needed Promethazine 25 mg tablet Discontinued 25 mg PO THREE TIMES A DAY as needed June 20, 2019 1:00am April 08, 2021 1:49pm Sennosides (Evac-U-Gen (Sennosides)) 8.6 mg tablet (4 sources) Start: 07-16-2023 take 1 tablet by mouth once daily as needed for constipation Sennosides (Evac-U-Gen (Sennosides)) 8.6 mg tablet Active 8.6 mg PO DAILY as needed for constipation July 16, 2023 1:00am Start: 07-16-2023 take 1 tablet by yarelis th once daily Sennosides (Evac-U-Gen (Sennosides)) 8.6 mg tablet Active 8.6 MG PO DAILY July 16, 2023 12:00am simvastatin 20 mg oral tablet (14 sources) HMG-CoA Reductase Inhibitor Start: 06-20-2019 take 1 tablet by mouth once daily Simvastatin 20 mg tablet Active 20 mg PO DAILY June 20, 2019 1:00am Completed/Discontinued Medications Medication Drug Class(es) Dates Sig (Normalized) Sig (Original) amoxicillin 500 mg oral capsule (10 sources) Penicillin-class Antibacterial Start: 06-14-2022 End: 06-30-2022 take 1 capsule by mouth twice daily Amoxicillin 500 mg capsule Discontinued 500 mg PO TWICE A DAY June 14, 2022 1:00am June 30, 2022 11:10am diclofenac sodium 20 mg/ml topical solution (14 sources) Nonsteroidal Anti-inflammatory Drug Start: 08-26-2021 End: 03-16-2023 Diclofenac Sodium (Pennsaid) 20 mg/gram /actuation(2 %) solution in metered-dose pump Discontinued 2 NMA TOPICAL TWICE A DAY August 26, 2021 12:00am March 16, 2023 12:02pm apply to single affected knee Start: 08-26-2021 End: 03-16-2023 Diclofenac Sodium (Pennsaid) 20 mg/gram /actuation(2 %) solution in metered-dose pump Discontinued 2 PUMP TOPICAL TWICE A DAY August 25, 2021 11:00pm March 16, 2023 11:02am apply to single affected knee estradiol 0.1 mg/ml vaginal cream (20 sources) Estrogen Start: 06-29-2023 End: 01-25-2024 Estradiol 0.01 % (0.1 mg/gram) cream Discontinued 1 NMA VAGINAL MOWEFR June 29, 2023 1:00am January 25, 2024 8:55am Start: 06-29-2023 Estradiol Acti ve 1 APPFUL VAGINAL MOWEFR June 29, 2023 12:00am Start: 09-23-2021 End: 03-16-2023 Estradiol (Estrace) 0.01 % ( 0.1 mg/gram) cream Discontinued 1 NMA VAGINAL TWICE A WEEK September 23, 2021 1:49pm March 16, 2023 12:02pm Start: 09-23-2021 End: 03-16-2023 Estradiol (Estrace) 0.01 % ( 0.1 mg/gram) cream Discontinued 1 APPFUL VAGINAL TWICE A WEEK September 23, 2021 12:49pm March 16, 2023 11:02am Start: 01-07-2021 End: 09-23-2021 Estradiol (Estrace) 0.01 % ( 0.1 mg/gram) cream Discontinued 1 NMA VAGINAL DAILY January 07, 2021 12:00am September 23, 2021 1:49pm for 14 days Start: 01-07-2021 End: 09-23-2021 Estradiol (Estrace) 0.01 % ( 0.1 mg/gram) cream Discontinued 1 APPFUL VAGINAL DAILY January 06, 2021 11:00pm September 23, 2021 12:49pm for 14 days fluconazole 150 mg oral tablet (7 sources) Azole Antifungal Start: 03-04-2023 End: 03-16-2023 Fluconazole 150 mg tablet Discontinued 150 mg PO .COMPLEX 2 March 04, 2023 12:00am March 16, 2023 12:02pm 150 mg PO take one po now and repeat in 3 days LORazepam 0.5 mg oral tablet (12 sources) Benzodiazepine Start: 01-27-2022 End: 01-28-2022 take 1 tablet by mouth once daily as needed Lorazepam (Ativan) 0.5 mg tablet Discontinued 0.5 mg PO DAILY as needed for for MRI 2 January 27, 2022 12:00am January 27, 2022 12:00am January 28, 2022 12:03am metroNIDAZOLE 500 mg oral tablet (14 sources) Nitroimidazole Antimicrobial Start: 11-21-2021 End: 11-28-2021 take 1 tablet by mouth twice daily Metronidazole 500 mg tablet Discontinued 500 mg PO TWICE A DAY 14 November 21, 2021 12:00am November 27, 2021 12:00am November 28, 2021 12:02am nitrofurantoin, macrocrystals 100 mg oral capsule (13 sources) Nitrofuran Antibacterial Start: 12-11-2021 End: 12-18-2021 take 1 capsule by mouth twice daily at mealtime Nitrofurantoin Macrocrystal 100 mg capsule Discontinued 100 mg PO TWICE A DAY 14 December 11, 2021 12:00am December 17, 2021 12:00am December 18, 2021 12:03am administer with food (meal or snack) nystatin 100 unt/mg / triamcinolone acetonide 0.001 mg/mg topical ointment (10 sources) Polyene Antifungal, Corticosteroid Start: 06-30-2022 End: 03-16-2023 Nystatin-Triamcinol one 100,000-0.1 unit/gram-% ointment Discontinued 1 NMA TOPICAL THREE TIMES A DAY June 30, 2022 1:00am March 16, 2023 12:03pm Start: 06-30-2022 End: 03-16-2023 Nystatin-Triamcinolone Disco ntinued 1 APPLIC TOPICAL THREE TIMES A DAY June 30, 2022 12:00am March 16, 2023 11:03am Problems Active Problems Problem Classification Problem Date Documented Date Episodic/Chronic Genitourinary symptoms and ill-defined conditions (4 sources) Urinary symptoms ; Translations: [Unspecified symptoms and signs involving the genitourinary system] 06-06-2022 Episodic Menopausal disorders (16 sources) Postmenopausal bleeding; Translations: [Postmenopausal bleeding] Onset: 05-23-2024 10-17-2022 Chronic Comment on above: unable to biopsy, shine spect secondary to granulation tissue. repeat pelvic US in january- stable lining 3.6mm. consider d and c hysteroscopy if persistent. pessary left out. s/p ultrasound 3 mm lining, pap done resolved vb Osteoarthritis (20 sources) Primary gonarthrosis, bilateral; Translations: [Bilateral primary osteoarthritis of knee] Onset: 07-12-2024 Chronic Other acquired deformities (14 sources) Spondylolisthesis; Translations: [Spondylolisthesis, site unspecified] 05-21-2021 Episodic Other bone disease and musculoskeletal deformities (20 sources) Segmental and somatic dysfunction; Translations: [Segmental and somatic dysfunction of cervical region] 05-28-2021 Episodic Other connective tissue disease (12 sources) Impingement syndrome of shoulder region; Translations: [Impingement syndrome of left shoulder] 01-27-2022 Episodic Other connective tissue disease (3 sources) Impingement syndrome of left shoulder; Translations: [Other affections of shoulder region, not elsewhere classified] Episodic Other female genital disorders (15 sources) Vaginal discharge; Translations: [Other specified noninflammatory disorders of vagina] 03-24-2022 Episodic Comment on above: recurrent- ordered r ed top culture. ? recurrent BV vs foreign body discharge from pessary. Other female genital disorders (6 sources) Other specified noninflammatory disorders of vagina; Translations: [Leukorrhea, not specified as infective] Episodic Other non-traumatic joint disorders (16 sources) Pain in left knee; Translations: [Left knee pain] Episodic Other non-traumatic joint disorders (11 sources) Pain in right shoulder; Translations: [Right shoulder pain] 08-28-2022 Episodic Prolapse of female genital organs (20 sources) Cystocele and rectocele co-occurrent with incomplete uterovaginal prolapse; Translations: [Incomplete uterovaginal prolapse] Chronic Comment on above: pessary Rehabilitation care; fitting of prostheses; and adjustment of devices (20 sources) Patient encounter status; Translations: [Encounter for fitting and adjustment of other specified devices] Onset: 05-23-2024 Chronic Comment on above: ring with support- o ut for now due to bleeding secondary to vaginal atrophy Spondylosis; intervertebral disc disorders; other back problems (14 sources) Backache; Translations: [Dorsalgia, unspecified] 05-21-2021 Episodic Unclassified (3 sources) Encounter for screening mammogram for malignant neoplasm of breast; Translations: [Encntr screen mammogram for malignant neoplasm of breast] Onset: 02-09-2017 Episodic Urinary tract infections (2 sources) Urinary tract infection, site not specified; Translations: [Urinary tract infection, site not specified] Episodic Past or Other Problems Problem Classification Problem Date Documented Da te Episodic/Chronic Ovarian cyst (20 sources) Cyst of ovary; Translations: [Unspecified ovarian cyst, left side] Onset: 05-23-2024 Episodic Comment on above: repeat US in er unlikely for chronic pelvic pain to be associated with it. 2.3cm, repeat ultrasound stable. recommend US annually to confirm stability. Results Test Name Value Interpretation Reference Range Facility CBC (INCLUDES DIFF/PLT)on Basophils (Bld) [#/Vol] 0.04 10*3/uL Normal 0-200 [facility] Comment on above: Performed By: #### 6 399, [id number], 8090 #### [facility] [place] [address] Building Associate: Maxim Arriaga MD Basophils/100 WBC (Bld) 0.5 % Normal [facility] Comment on above: Performed By: #### 6 399, 37781, 3770 #### [facility] [place] [address] Building Associate: Maxim Arriaga MD Eosinophils (Bld) [#/Vol] 0.182 10*3/uL Normal 15-500 [facility] Comment on above: Performed By: #### 6 399, 03485, 5160 #### [facility] [place] [address] Building Associate: Maxim Arriaga MD Eosinophils/100 WBC (Bld) 2.3 % Normal [facility] Comment on above: Performed By: #### 6 399, 50796, 0 #### [facility] of [place] [address] Building Associate: Maxim Arriaga MD Erythrocyte distribution width (RBC) [Ratio] 15.0 % Normal 11.0-15.0 [facility] Comment on above: Performed By: #### 6 399, 45152, 7600 #### [facility] of [place] [address] Building Associate: Maxim Arriaga MD Hematocrit (Bld) [Volume fraction] 43.5 % Normal 35.0-45.0 [facility] Comment on above: Performed By: #### 6 399, 04686, 0 #### [facility] [place] [address] Building Associate: Maxim Arriaga MD Hemoglobin (Bld) [Mass/Vol] 13.4 g/dL Normal 11.7-15.5 [facility] Comment on above: Performed By: #### 6 399, , 0 #### [facility] [place] [address] Building Associate: Maxim Arriaga MD Lymphocytes (Bld) [#/Vol] 1.375 10*3/uL Normal 850-3900 [facility] Comment on above: Performed By: #### 6 399, 43097, 0 #### [facility] [place] [address] Building Associate: Maxim Arriaga MD Lymphocytes/100 WBC (Bld) 17.4 % Normal [facility] Comment on above: Performed By: #### 6 399, 36575, 0 #### [facility] [place] [address] Building Associate: Maxim Arriaga MD MCH (RBC) [Entitic mass] 27.0 pg Normal 27.0-33.0 [facility] Comment on above: Performed By: #### 6 399, 34548, 0 #### [facility] [place] [address] Building Associate: Maxim Arriaga MD MCHC (RBC) [Mass/Vol] 30.8 g/dL Low 32.0-36.[address] [facility] Comment on above: Result Comment: For adults, a slight decrease in the calculated MCHC value (in the range of 30 to 32 g/dL) is most likely not clinically significant; however, it should be interpreted with caution in correlation with other red cell parameters and the patient's clinical condition. Performed By: #### 6 399, 16866, 7600 #### [facility] [place] [address] Building Associate: Maxim Arriaga MD MCV (RBC) [Entitic vol] 87.7 fL Normal 80.0-100.0 [facility] Comment on above: Performed By: #### 6 399, 94001, 0 #### [facility] [place] [address] Building Associate: Maxim Arriaga MD Monocytes (Bld) [#/Vol] 0.482 10*3/uL Normal 200-950 [facility] Comment on above: Performed By: #### 6 399, 26022, 0 #### [facility] [place] [address] Building Associate: Maxim Arriaga MD Monocytes/100 WBC (Bld) 6.1 % Normal [facility] Comment on above: Performed By: #### 6 399, 40153, 0 #### [facility] [place] [address] Building Associate: Maxim Arriaga MD Neutrophils (Bld) [#/Vol] 5.822 10*3/uL Normal 4916-7504 [facility] Comment on above: Performed By: #### 6 399, 00323, 7600 #### [facility] [place] [address] Building Associate: Maxim Arriaga MD Neutrophils/100 WBC (Bld) 73.7 % Normal [facility] Comment on above: Performed By: #### 6 399, 64083, 7600 #### [facility] [place] [address] Building Associate: Maxim Arriaga MD Platelet mean volume (Bld) [Entitic vol] 9.6 fL Normal 7.5-12.5 [facility] Comment on above: Performed By: #### 6 399, 73010, 7600 #### [facility] [place] [address] Building Associate: Maxim Arriaga MD Platelets (Bld) [#/Vol] 244 10*3/uL Normal 140-400 [facility] Comment on above: Performed By: #### 6 399, 76488, 7600 #### [facility] [place] [address] Building Associate: Maxim Arriaga MD RBC (Bld) [#/Vol] 4.96 10*6/uL Normal 3.80-5.10 [facility] Comment on above: Performed By: #### 6 399, 66894, 0 #### [facility] [place] [address] Building Associate: Maxim Arriaga MD WBC (Bld) [#/Vol] 7.9 10*3/uL Normal 3.8-10.8 [facility] Comment on above: Performed By: #### 6 399, 86370, 0 #### [facility] [place] [address] Building Associate: Maxim Arriaga MD [facility] 12-28-2024 Albumin [Mass/Vol] 3.9 g/dL Normal 3.6-5.1 [facility] Comment on above: Performed By: #### 6 399, 98182, 7600 #### [facility] [place] [address] Building Associate: Maxim Arriaga MD Albumin/Globulin [Mass ratio] 1.6 {ratio} Normal 1.0-2.5 [facility] Comment on above: Performed By: #### 6 399, 13494, 7600 #### [facility] of [address], [address] [place] [address] Building Associate: Maxim Arriaga MD ALP [Catalytic activity/Vol] 90 U/L Normal 37-153 [facility] Comment on above: Performed By: #### 6 399, 32474, 7600 #### [facility] of [address], [address] [place] [address] Building Associate: Maxim Arriaga MD ALT [Catalytic activity/Vol] 17 U/L Normal 6-29 [facility] Comment on above: Performed By: #### 6 399, 28852, 0 #### [facility] [place] [address] Building Associate: Maxim Arriaga MD AST [Catalytic activity/Vol] 15 U/L Normal 10-35 [facility] Comment on above: Performed By: #### 6 399, 18395, 0 #### [facility] [place] [address] Building Associate: Maxim Arriaga MD Bilirubin [Mass/Vol] 0.8 mg/dL Normal 0.2-1.2 [facility] Comment on above: Performed By: #### 6 399, 44868, 0 #### [facility] [place] [address] Building Associate: Maxim Arriaga MD BUN/CREATININE RATIO SEE NOTE: Normal 6-22 [facility] Comment on above: Result Comment: Not Reported: BUN and Creatinine are within reference range. Performed By: #### 6 399, 38187, 7600 #### [facility] [place] [address] Building Associate: Maxim Arriaga MD Calcium [Mass/Vol] 9.3 mg/dL Normal 8.6-10.4 [facility] Comment on above: Performed By: #### 6 399, 09795, 7600 #### [facility] of [address], [address] [place] [address] Building Associate: Maxim Arriaga MD Chloride [Moles/Vol] 105 mmol/L Normal 98-110 [facility] Comment on above: Performed By: #### 6 399, 77423, 7600 #### [facility] of [address], [address] [place] [address] Building Associate: Maxim Arriaga MD CO2 [Moles/Vol] 26 mmol/L Normal 20-32 [facility] Comment on above: Performed By: #### 6 399, 28486, 7600 #### [facility] [place] [address] Building Associate: Maxim Arriaga MD Creatinine [Mass/Vol] 0.91 mg/dL Normal 0.60-1.[address] [facility] Comment on above: Performed By: #### 6 399, 21640, 0 #### [facility] [place] [address] Building Associate: Maxim Arriaga MD GFR/1.73 sq M.predicted among non-blacks MDRD (S/P/Bld) [Vol rate/Area] 67 mL/min/{1.73_m2} Normal > OR = 60 [facility] Comment on above: Performed By: #### 6 399, 46236, 7600 #### [facility] [place] [address] Building Associate: Maxim Arriaga MD Globulin (S) [Mass/Vol] 2.5 g/dL Normal 1.9-3.7 [facility] Comment on above: Performed By: #### 6 399, 87432, 7600 #### [facility] [place] [address] Building Associate: Maxim Arriaga MD Glucose [Mass/Vol] 117 mg/dL High 65-99 [facility] Comment on above: Result Comment: Fasting reference interval For someone without known diabetes, a glucose value between 100 and 125 mg/dL is consistent with prediabetes and should be confirmed with a follow-up test. Performed By: #### 6 399, 58694, 0 #### [facility] [place] [address] Building Associate: Maxim Arriaga MD Potassium [Moles/Vol] 4.7 mmol/L Normal 3.5-5.3 [facility] Comment on above: Performed By: #### 6 399, 52558, 0 #### [facility] [place] [address] Building Associate: Maxim Arriaga MD Protein [Mass/Vol] 6.4 g/dL Normal 6.1-8.1 [facility] Comment on above: Performed By: #### 6 399, 51965, 0 #### [facility] [place] [address] Building Associate: Maxim Arriaga MD Sodium [Moles/Vol] 140 mmol/L Normal 135-146 [facility] Comment on above: Performed By: #### 6 399, 86765, 0 #### [facility] [place] [address] Building Associate: Maxim Arriaga MD Urea nitrogen [Mass/Vol] 15 mg/dL Normal 7-25 [facility] Comment on above: Performed By: #### 6 399, 81492, 0 #### [facility] [place] [address] Building Associate: Maxim Arriaga MD LIPID PANEL, [facility] 08 Cholesterol [Mass/Vol] 174 mg/dL Normal <200 [facility] Comment on above: Order Comment: FASTI NG:YES FASTING: YES Performed By: #### 6 399, 41869, 7600 #### [facility] [place] [address] Building Associate: Maxim Arriaga MD Cholesterol in HDL [Mass/Vol] 52 mg/dL Normal > OR = 50 [facility] Comment on above: Order Comment: FASTI NG:YES FASTING: YES Performed By: #### 6 399, 25983, 7600 #### [facility] [address], [address] [place] [address] Building Associate: Maxim Arriaga MD Cholesterol in LDL [Mass/Vol] 97 mg/dL Normal [facility] Comment on above: Order Comment: FASTI NG:YES FASTING: YES Result Comment: Refe rence range: <100 Desirable range <100 mg/dL for primary prevention; <70 mg/dL for patients with CHD or diabetic patients with > or = 2 CHD risk factors. LDL-C is now calculated using the Harper calculation, which is a validated novel method providing better accuracy than the Friedewald equation in the estimation of LDL-C. Angel SS et al. ASHLI. 2013;310(19): 2128-6363 (http://education.[employer]/faq/INA184) Performed By: #### 6 399, 52575, 7600 #### [facility] [address], [address] [place] [address] Building Associate: Maxim Arriaga MD Cholesterol.total/Leslie sterol in HDL [Mass ratio] 3.3 {ratio} Normal <5.0 [facility] Comment on above: Order Comment: FASTI NG:YES FASTING: YES Performed By: #### 6 399, 67132, 7600 #### [facility] [address], [address] [place] [address] Building Associate: Maxim Arriaga MD NON HDL CHOLESTEROL 122 mg/dL (calc) Normal <130 [facility] Comment on above: Order Comment: FASTI NG:YES FASTING: YES Result Comment: For patients with diabetes plus 1 major ASCVD risk factor, treating to a non-HDL-C goal of <100 mg/dL (LDL-C of <70 mg/dL) is considered a therapeutic option. Performed By: #### 6 399, 21642, 7600 #### [facility] [address], [address] [place] [address] Building Associate: Maxim Arriaga MD Triglyceride [Mass/Vol] 157 mg/dL High <150 [facility] Comment on above: Order Comment: FASTI NG:YES FASTING: YES Performed By: #### 6 399, 36716, 7600 #### [facility] [address], [address] [place] [address] Building Associate: Maxim Arriaga MD PT D/C Summary (1)on 025 PT D/C Summary (1) [facility] [address] [place] [address] / REHABILITATION SERVICES DISCHARGE SUMMARY MR#: [id number] Acct: [id number] Name: RIA ARDON Rep #: [id number] : 1955 68 From: Jerardo Baig PT, ATC Referring Dr.: Dr. Kurt Mcclellan DO Status: REG RCR [place] [facility] [place] Discharge Summary D/C summary: It has been my pleasure to treat RIA ARDON referred by Dr. Kurt Mcclellan DO, with the diagnosis of L TKA 06/30/24 for a total of 10 visit(s). Discharge Date: Please see the following information for a summary of their discharge status. Subjective Subjective: I am ready to continue on my own. Pain L knee pain: Pain Intensity (Out of 10): 0 SI: Pain Intensity (Out of 10): 0 IT , L side only: Pain Intensity (Out of 10): 0 Overall Improvement % Improvement: 70 Objective Objective/Function: L knee pain ranges from 0-5/10 L knee ROM: 0-5-115 degrees L knee MMT: flex= 14, ext= 32 #F Pt is I with HEP and gym routine Goals Goal 1:: Decrease L knee pain x 50% to aid with sleep Goal Progress: Goal Met Goal 2:: Increase L knee ROM x 30 degrees to aid with restoring a more normalized gait pattern Goal Progress: Goal Met Goal 3:: Increase L knee strength x 10#F to aid with stair negotiation Goal Progress: Goal Met Goal 4:: I with HEP Goal Progress: Goal Met Plan Plan: Discharge to HEP D/C Information d/c sentence: If there are questions or concerns regarding this patient's physical therapy, please feel free to call me at [phone]. Thank you for the referral of this patient. Sincerely, Jerardo Baig, PT, ATC Balance/Gait/Functiona l tests Balance/Special Test Scores WOMAC Total Score: 28 WOMAC Percentage: 70.8400 Improvement % Improvement: 70 08/03/24 1404 CC: Dr. Cash Santamaria MD; Dr. Kurt Mcclellan DO [facility] Signed Normal [facility] Bedside Glucoseon 06-30-2024 FINGERSTICK GLU 75 mg/dL Normal 74-106 [facility] Comment on above: Result Comment: ANDREINA CARLSON OF PATIENT CARE PER NURSING PROTOCOL Performed By: #### L 501.080 #### [facility] [address] [place], [address] Decalcification bone/plaqueo n 06-30-2024 Decalcification bone/plaque ---- Patient Age/Sex Location Account Attending Physician ---- RIA ARDON September/ [facility] [id number] Dr. Kurt Mcclellan DO ---- Specimen: [id number] Received: 06/30/24 Status: HI Echeverria Num: [id number] Spec Type: TOTAL KNEE Subm Dr: Dr. Kurt Mcclellan, [facility] OPERATION: Total knee replacement robotic arm assist PRE-OP DIAGNOSIS: Grade IV osteoarthritis left knee, arthritis, high blood pressure hypercholesterolemia TISSUE SUBMITTED: Left knee bone and tissue ---- MICROSCOPIC DIAGNOSIS Bone and soft tissue, left knee, total knee replacement/resection: Pieces of bone with degenerative osteoarthritic changes. Fibrocartilaginous tissue and reactive synovial tissue. SJ: 07/06/2024 MICROSCOPIC DESCRIPTION Slides are reviewed. GROSS DESCRIPTION Received is one container designated bone and soft tissue left knee. The specimen consists of multiple fragments of law-yellow bone measuring in aggregate 10.5 x 10 x 2.5 cm. Also in the specimen container are two pieces of fibrocartilaginous tissue measuring in aggregate 6.5 x 3 x 1.5 cm. A number of bony fragments contain articular surfaces consistent with tibial plateau and femoral condyle and displaying prominent osteophyte formation, eburnation and bone erosion. Reservation Agent sections are submitted in two cassettes as follows: 1 - soft tissue, 2 - bone after decalcification. / . 06/30/2024 TC:5 CPT: 44142, 36288 ---- Patient Age/Sex Location Account Attending Physician ---- RIA ARDON SE[birth year]EM[birth year] 68/ [facility] [id number] Dr. Kurt Mcclellan, DO ---- Signed (signature on file) Dr. Florentin Salazar MD 07/06/24 1202 ---- Normal [facility] Comment on above: Performed By: #### P DEC ####[facility] [id number] [facility] [place], [place], [id number] Gl[facility] at [facility] deOrdered By: Kurt Mcclellan on 06-30-2024 Bedside Glucose ([facility] Panel) 75 mg/dL 74-106 [facility] Comment on above: MANAGEMENT OF PATIEN T CARE PER NURSING PROTOCOL MR/POSTOP.ANEon 06-30-2024 MR/POSTOP.[facility] Medical Records Department [address] [facility] [place] [address] Anesthesia Postop Eval I 06/30/24 1317 MR#: [id number] Acct: [id number] Name: RIA ARDON SEPTEMBER Rep #: [id number] : 1955 68 From: Pilo Gilmore CRNA PCP: Dr. Cash Santamaria MD Status:REG [facility] Y Race: C Location: [place] [address] Anesthesia: Postop Eval I Current Vital Signs Temperature: 98.5 F Pulse Rate: 91 Blood Pressure: 102/65 Respiratory Rate: 22 Pulse Ox: 100 Oxygen Delivery Method: Nasal Cannula Oxygen Flow Rate (L/min): 3 Assessment Airway patent: Yes Spontaneous unlabored respirations: Yes Mental status: Awake nausea: No Vomiting: No Anesthesia Complication: No Fluid Hydration Crystalloid volume administer (ml): 2,000 Total IV fluid infused: 2,000 Progress Note Anesthesia document: Postop Eval 1 completed: Yes 06/30/24 1318 Date Pilo Gilmore TRANSPORTATION SUPERVISOR Cosigner Signature: Date CC: Signed Normal [facility] MR/[id number] 06-30-2024 /[facility] Medical Records Department [address] [place] [address] Anesthesia Postop Eval II 06/30/24 1614 MR#: [id number] Acct: [id number] Name: RIA ARDON SEPTEMBER Rep #: [id number] : 1955 68 From: Nghia Galdamez MD PCP: Dr. Cash Santamaria MD Status:REG [facility] Y Race: C Location: [place] [address] Anesthesia Postop Eval I Sum Postop Eval Completion status Anesthesia document: Postop Eval 1 completed: Yes Anesthesia Postop Eval I Summary Anesthesia Postop Eval I Summary: Anesthesia Postop Eval I: Assessment Summary Airway patent Yes 06/30/24 13:18 TRANSPORTATION SUPERVISOR.RWOO Spontaneous unlabored Yes 06/30/24 13:18 TRANSPORTATION SUPERVISOR.RWOO respirations Mental status Awake 06/30/24 13:18 TRANSPORTATION SUPERVISOR.RWOO nausea No 06/30/24 13:18 TRANSPORTATION SUPERVISOR.RWOO Vomiting No 06/30/24 13:18 TRANSPORTATION SUPERVISOR.RWOO Anesthesia Postop Eval I: Fluid Summary Crystalloid volume administer 2,000 06/30/24 13:18 TRANSPORTATION SUPERVISOR.RWOO (ml) Colloids volume administered ( ml) Blood Product volume administered (ml) Total IV fluid infused 2,000 06/30/24 13:18 TRANSPORTATION SUPERVISOR.RWOO Anesthesia Postop Eval I: Summary Notes Anesthesia Complication No 06/30/24 13:18 TRANSPORTATION SUPERVISOR.RWOO Anesthesia Complication Comment: Post-operative progress note Anesthesia: Postop Eval II Evaluation Mental status: Awake and Calm Pain Level: 0 nausea: No Vomiting: No Complications Anesthesia Complication: No 06/30/24 1614 Date Nghia Galdamez MD Cosigner Signature: Date CC: Signed Normal [facility] Operative Reporton 5 Operative Report [facility] Medical Records Department [address] [facility] [facility] [place] [address] Operative Report 06/30/24 1313 MR#: [id number] Acct: [id number] Name: RIA ARDON Rep #: [id number] : 1955 68 From: Kurt Mcclellan DO PCP: Dr. Cash Santamaria MD Status:[facility] Location: [place] [address] Operative Report (Standard) Operative Information Date of Procedure: 06/30/24 Pre-Operative Diagnosis: Left knee osteoarthritis Post-Operative Diagnosis: Left knee osteoarthritis Surgery/Procedure Performed: Robotic arm assisted left total knee arthroplasty radio engineer: Yes Support Services Tech: Chikis García Tasks completed by surveyor's assistant: Opening, Closing, Dissecting tissue, Implanting device, Hemostasis: Electrocautery and Retracting Type of Anesthesia: Spinal RN Documented Start/Stop Times: Operation Date: 06/30/24 10:55 Case Time Into Pre-Op 06/30/24 09:03 Anesthesia Start 06/30/24 10:59 Into Room 06/30/24 10:59 Out of Pre-Op 06/30/24 11:02 Procedure Start 06/30/24 11:18 Procedure End 06/30/24 12:45 Anesthesia End 06/30/24 12:48 Out of Room 06/30/24 12:48 Into Recovery 06/30/24 12:57 Procedure Start Time: 11:18 Procedure Stop Time: 12:45 Select all DRAINS/GRAFTS/IMPLANTS that apply: Implanted device Implanted device details: [place] triathlon CR femur size #3, [place]elia triathlon primary tibial baseplate size #3, triathlon X3 tibial bearing insert CS size #11 Estimated Blood Loss: 50 cc Specimen collected: Yes Description of specimen(s) removed: Left total knee resections Description of surgery: Patient was identified in the preoperative holding area by name, medical record number, and date of . Informed consent was confirmed with the patient. The operative knee was marked with a surgical marker. At time of her procedure, patient brought to the operative suite and positioned supine a standard operating table. Anesthesia then administered a spinal anesthetic. She was then repositioned in the supine position with all bony prominences well-padded. We then placed a well- padded pneumatic tourniquet on the left upper thigh. The left upper extremity was brought across patient's chest throughout the procedure. We then prepped and draped the left lower extremity in a normal, sterile orthopedic fashion. We performed a timeout with all parties in attendance in agreement with the side, site, operation be performed. No concerns were voiced and would like to proceed with surgery. 2 g Ancef was administered prior to the incision by anesthesia staff as well as 1 g IV TXA. First exsanguinated the left lower extremity with a Esmarch bandage. Tourniquet was inflated to 250 mmHg which remained up for approximately 65 minutes. Esmarch was removed. I planned a standard midline approach to the left knee approximately 15 cm in length. Skin was sharply incised with a 10 blade scalpel developing full-thickness layers down to the retinaculum. Layers were developed identifying the VMO. I then planned a standard medial parapatellar arthrotomy performed in flexion. The anterior horn of the medial meniscus was released. Hoffa's fat pad was then released. I then everted the patella in extension and brought the knee into 90 degrees of flexion. The anterior horn of the lateral meniscus was then released. The ACL was split in its mid substance with a 10 blade. We then brought the knee back into extension. I measured the outer diameter of the patella and appropriately sized patellar reamer was then selected. I measured the thickness of the patella to be 26 mm. I then reamed the patella to a depth of approximately 16 mm. A protective baseplate was then placed on the patella. I then placed pins in the metaphyseal distal femur medial to lateral for the Lucas arrays. In similar fashion, I made 2 stab incisions approximately a handsbreadth distal to the tibial tubercle along the medial aspect of the tibia, drilling 2 bicortical pins for the tibial array. The knee was brought into flexion. The patella was subluxed laterally but not everted. Medial and lateral retractors were placed. We then utilized the [employer] software to confirm our planned surgical procedure and oriented with the patient's osseous anatomy. All checks with the [employer] system were confirmed. Patient had a significant fixed varus deformity after performing stress examination utilizing the [employer] software. We elected to place the tibial baseplate in 1 degree of varus to allow for appropriate balancing. Sawblade was then brought in. I first started with the tibial cut, ensuring protection of the MCL and patellar tendon. A tibial wafer was then excised. I then proceeded to make the posterior femoral, anterior, anterior chamfer cuts with the same blade. Ligaments were protected with [employer] retractors. Sawblade was then exchanged to perform the distal femoral and (more content not included)... Normal [facility] Absolute neutrophil countOrd ered By: Kurt Mcclellan on 06-10-2024 Neutrophils (Bld) [#/Vol] 5.7 10*3/uL 2.0-7.7 [facility] Basophil percentageOrdered B y: Kurt Mcclellan on 06-10-2024 Basophils/100 WBC (Bld) 0.8 % 0-1 [facility] CBC W/Diff, Automatedon 05-13 Absolute Lymph 2.28 X10 3/uL Normal 0.83-4.51 [facility] Comment on above: Performed By: #### L 100.0100 #### [facility] [address] [place], [address] Absolute Neut 5.7 X10 3/uL Normal 2.0-7.7 [facility] Comment on above: Performed By: #### L 100.0100 #### [facility] [address] [place], [address] Basophils/100 WBC (Bld) 0.8 % Normal 0-1 [facility] Comment on above: Performed By: #### L 100.0100 #### [facility] [address] [place], [address] Eosinophils/100 WBC (Bld) 2.4 % Normal 0-5 [facility] Comment on above: Performed By: #### L 100.0100 #### [facility] [address] [place], [address] Erythrocyte distribution width (RBC) [Ratio] 14.6 % Normal 11.6-14.6 [facility] Comment on above: Performed By: #### L 100.0100 #### [facility] [address] [place], [address] Hematocrit (Bld) [Volume fraction] 43.8 % Normal 37-47 [facility] Comment on above: Performed By: #### L 100.0100 #### [facility] [address] [place], [address] Hemoglobin (Bld) [Mass/Vol] 13.3 g/dL Normal 12.0-15.0 [facility] Comment on above: Performed By: #### L 100.0100 #### [facility] [address] [place], [address] IG% 0.500 Normal 0.0-0.9 [facility] Comment on above: Result Comment: IG% - Immature Granulocytes (promyelocytes, myelocytes and metamyelocytes) > 1% indicates that a LEFT SHIFT is Present. Performed By: #### L 100.0100 #### [facility] [address] [place], [address] Lymphocytes/100 WBC (Bld) 25.9 % Normal 19-41 [facility] Comment on above: Performed By: #### L 100.0100 #### [facility] [address] [place], [address] MCH (RBC) [Entitic mass] 25.9 pg Low 27.0-32.0 [facility] Comment on above: Performed By: #### L 100.0100 #### [facility] [address] [place], [address] MCHC (RBC) [Mass/Vol] 30.4 g/dL Low 32-36 [facility] Comment on above: Performed By: #### L 100.0100 #### [facility] [address] [place], [address] MCV (RBC) [Entitic vol] 85.4 fL Normal 81-99 [facility] Comment on above: Performed By: #### L 100.0100 #### [facility] [address] [place], [address] Monocytes/100 WBC (Bld) 6.5 % Normal 0-10 [facility] Comment on above: Performed By: #### L 100.0100 #### [facility] [address] [place], [address] Neutrophils/100 WBC (Bld) 63.9 % Normal 47-70 [facility] Comment on above: Performed By: #### L 100.0100 #### [facility] [address] [place], [address] Nucleated RBC (Bld) [#/Vol] 0 10*3/uL Normal 0-5 [facility] Comment on above: Performed By: #### L 100.0100 #### [facility] [address] [place], [address] Platelet mean volume (Bld) [Entitic vol] 9.8 fL Normal 6.2-12.0 [facility] Comment on above: Performed By: #### L 100.0100 #### [facility] [address] [place], [address] Platelets (Bld) [#/Vol] 341 10*3/uL Normal 150-450 [facility] Comment on above: Performed By: #### L 100.0100 #### [facility] [address] [place], [address] RBC (Bld) [#/Vol] 5.13 10*6/uL Normal 4.2-5.4 [facility] Comment on above: Performed By: #### L 100.0100 #### [facility] [address] [place], [address] RDW SD 45.6 fl High 35.1-43.9 [facility] Comment on above: Performed By: #### L 100.0100 #### [facility] [address] [place], [address] WBC (Bld) [#/Vol] 8.8 10*3/uL Normal 4.4-11.0 [facility] Comment on above: Performed By: #### L 100.0100 #### [facility] [address] [place], [address] Eosinophil percentageOrdered By: Kurt Mcclellan on 06-10-2024 Eosinophils/100 WBC (Bld) 2.4 % 0-5 [facility] Erythrocyte distribution wid th ratioOrdered By: Kurt Mcclellan on 06-10-2024 Erythrocyte distribution width (RBC) [Ratio] 14.6 % 11.6-14.6 [facility] Erythrocyte distribution wid th standard deviationOrdered By: Kurt Mcclellan on 06-10-2024 Erythrocyte distribution width (RBC) [Entitic vol] 45.6 fL High 35.1-43.9 [facility] Hematocrit Auto (Bld) [Volum e fraction]Ordered By: Kurt Mcclellan on 06-10-2024 Hematocrit (Bld) [Volume fraction] 43.8 % 37-47 [facility] Hemoglobin measurementOrdere d By: Kurt Mcclellan on 06-10-2024 Hemoglobin (Bld) [Mass/Vol] 13.3 g/dL 12.0-15.0 [facility] Immature granulocytes/100 WB C Auto (Bld)Ordered By: Kurt Mcclellan on 06-10-2024 Immature granulocytes/100 WBC (Bld) 0.500 % 0.0-0.9 [facility] Comment on above: IG% - Immature Granu locytes (promyelocytes, myelocytes and metamyelocytes) > 1% indicates that a LEFT SHIFT is Present. Lymphocytes Auto (Unsp spec) [#/Vol]Ordered By: Kurt Mcclellan on 06-10-2024 Lymphocytes (Bld) [#/Vol] 2.28 10*3/uL 0.83-4.51 [facility] Lymphocytes/100 WBC Auto (Un sp spec)Ordered By: Kurt Mcclellan on 06-10-2024 Lymphocytes/100 WBC (Bld) 25.9 % 19-41 [facility] MCV (mean corpuscular volume ) determinationOrdered By: Krut Mcclellan on 06-10-2024 MCV (RBC) [Entitic vol] 85.4 fL 81-99 [facility] Mean corpuscular hemoglobin (MCH) determinationOrdered By: Kurt Mcclellan on 06-10-2024 MCH (RBC) [Entitic mass] 25.9 pg Low 27.0-32.0 [facility] Mean corpuscular hemoglobin concentration (MCHC) determinationOrdered By: Kurt Mcclellan on 06-10-2024 MCHC (RBC) [Mass/Vol] 30.4 g/dL Low 32-36 [facility] Mean platelet volume determi nationOrdered By: Kurt Mcclellan on 06-10-2024 Platelet mean volume (Bld) [Entitic vol] 9.8 fL 6.2-12.0 [facility] Monocyte percentageOrdered B y: Kurt Mcclellan on 06-10-2024 Monocytes/100 WBC (Bld) 6.5 % 0-10 [facility] Neutrophil percentageOrdered By: Kurt Mcclellan on 06-10-2024 Neutrophils/100 WBC (Bld) 63.9 % 47-70 [facility] Nucleated red blood cell per centageOrdered By: Kurt Mcclellan on 06-10-2024 Nucleated RBC/100 WBC (Bld) [Ratio] 0 % 0-5 [facility] Platelet countOrdered By: Neha Mcclellan on 06-10-2024 Platelets (Bld) [#/Vol] 341 10*3/uL 150-450 [facility] RBC Auto (Bld) [#/Vol]Ordere d By: Kurt Mcclellan on 06-10-2024 RBC (Bld) [#/Vol] 5.13 10*6/uL 4.2-5.4 [facility] White blood cell (WBC) count Ordered By: Kurt Mcclellan on 06-10-2024 WBC (Bld) [#/Vol] 8.8 10*3/uL 4.4-11.0 [facility] MRSA/SAID NASAL SCREENon MRSA+SAID SCRN Reason for Exam: PRE OP MRSA MRSA Negative S. AUREUS S. aureus Negative Normal [facility] Comment on above: Performed By: #### L 500.2500, M100.651, L100.0100, L501.5200, L501.1800 #### [facility] [address] [facility] [place], [place], [id number] 12 Lead EKGon 06-07-2024 12 Lead EKG [facility] Cardiovascular Services [address] [place] [address] 12 Lead EKG 06/07/24 1257 MR#: [id number] Acct: [id number] Name: RIA ARDON Rep #: [id number] : 1955 68 From: Alexandra Townsend MD Attending Dr: Dr. Kurt Mcclellan DO Status: PRE SDC Ordering Dr: Kurt Mcclellan DO Date: 06/07/24 Location: [facility] Sex: F C Admitted: Test Reason : PRE OP Blood Pressure : */* mmHG Vent. Rate : 81 BPM Atrial Rate : 81 BPM P-R Int : 188 ms QRS Dur : 130 ms QT Int : 380 ms P-R-T Axes : 43 48 19 degrees QTcB Int : 441 ms Normal sinus rhythm Right bundle branch block Abnormal ECG Confirmed by RADHA ESTEVES, LEONIE ([id number]), design editor WAN RIZZO ([id number]) on 06/08/2024 6:32:16 AM Referred By: Kurt Mcclellan Confirmed By: LEONIE TOWNSEND MD 06/08/24 0632 Date Alexandra Townsend MD CC: Dr. Cash Santamaria MD; Dr. Kurt Mcclellan DO Signed Normal [facility] Albumin, Serumon 06-07-2024 Albumin [Mass/Vol] 3.6 g/dL Normal 3.2-5.0 [facility] Comment on above: Performed By: #### L 500.2500, M100.651, L100.0100, L501.5200, L501.1800 #### [facility] [address] [place], [address] Basic Metabolic Profile (BMP )on 06-07-2024 BUN/CRE 15.5 RATIO Normal 10-20 [facility] Comment on above: Performed By: #### L 500.2500, M100.651, L100.0100, L501.5200, L501.1800 #### [facility] [address] [place], [address] CA,Total 9.7 mg/dL Normal 8.5-10.1 [facility] Comment on above: Performed By: #### L 500.2500, M100.651, L100.0100, L501.5200, L501.1800 #### [facility] [address] [place], [address] Chloride [Moles/Vol] 108 mmol/L High 98-107 [facility] Comment on above: Performed By: #### L 500.2500, M100.651, L100.0100, L501.5200, L501.1800 #### [facility] [address] [place], [address] CO2 [Moles/Vol] 26.0 mmol/L Normal 21.0-32.0 [facility] Comment on above: Performed By: #### L 500.2500, M100.651, L100.0100, L501.5200, L501.1800 #### [facility] [address] [place], [address] Creatinine [Mass/Vol] 0.97 mg/dL Normal 0.55-1.02 [facility] Comment on above: Result Comment: The validity of the calculated GFR GFRAA in patients over 70 years has not been determined. Clinical correlation is essential. Performed By: #### L 500.2500, M100.651, L100.0100, L501.5200, L501.1800 #### [facility] [address] [place], [address] EST GFR - AA 73 mL/min Normal >60 [facility] Comment on above: Result Comment: Afri can [place] GFR Calc Performed By: #### L 500.2500, M100.651, L100.0100, L501.5200, L501.1800 #### [facility] [address] [place], [address] GAP 5 Normal 5-15 [facility] Comment on above: Performed By: #### L 500.2500, M100.651, L100.0100, L501.5200, L501.1800 #### [facility] [address] [place], [address] GFR/1.73 sq M.predicted among non-blacks MDRD (S/P/Bld) [Vol rate/Area] 60 mL/min/{1.73_m2} Normal >60 [facility] Comment on above: Result Comment: Non- GFR Calc Performed By: #### L 500.2500, M100.651, L100.0100, L501.5200, L501.1800 #### [facility] [address] [place], [address] Glucose [Mass/Vol] 127 mg/dL High 74-106 [facility] Comment on above: Result Comment: Fast ing Glucose result greater than or equal to 126 mg/dL suggests DIABETES MELLITUS per A.D.A. criteria. Performed By: #### L 500.2500, M100.651, L100.0100, L501.5200, L501.1800 #### [facility] [address] [place], [address] Potassium [Moles/Vol] 4.4 mmol/L Normal 3.5-5.1 [facility] Comment on above: Performed By: #### L 500.2500, M100.651, L100.0100, L501.5200, L501.1800 #### [facility] [address] [place], [address] Sodium [Moles/Vol] 138 mmol/L Normal 136-145 [facility] Comment on above: Performed By: #### L 500.2500, M100.651, L100.0100, L501.5200, L501.1800 #### [facility] [address] [place], [address] Urea nitrogen [Mass/Vol] 15 mg/dL Normal 7-18 [facility] Comment on above: Performed By: #### L 500.2500, M100.651, L100.0100, L501.5200, L501.1800 #### [facility] [address] [place], [address] Blood urea nitrogen (BUN)/cr eatinine ratioOrdered By: Kurt Mcclellan on 06-07-2024 Urea nitrogen/Creatinine [Mass ratio] 15.5 mg/mg 10- [facility] CBC W/Diff, Automatedon 05-12 Absolute Neut Normal 2.0-7.7 [facility] Comment on above: Result Comment: GARY VASQUEZ, SPOKE WITH CONCHA IN PAT, WILL REDRAW THE DAY OF SURGERY Performed By: #### L 500.2500, M100.651, L100.0100, L501.5200, L501.1800 #### [facility] [address] [place], [address] HCT Normal 37-47 [facility] Comment on above: Result Comment: GARY VASQUEZ, SPOKE WITH [place] IN PAT, WILL REDRAW THE DAY OF SURGERY Performed By: #### L 500.2500, M100.651, L100.0100, L501.5200, L501.1800 #### [facility] [address] [place], [address] HGB Normal 12.0-15.0 [facility] Comment on above: Result Comment: GARY VASQUEZ, SPOKE WITH [place] IN PAT, WILL REDRAW THE DAY OF SURGERY Performed By: #### L 500.2500, M100.651, L100.0100, L501.5200, L501.1800 #### [facility] [address] [place], [address] MCH Normal 27.0-32.0 [facility] Comment on above: Result Comment: GARY VASQUEZ, SPOKE WITH [place] IN PAT, WILL REDRAW THE DAY OF SURGERY Performed By: #### L 500.2500, M100.651, L100.0100, L501.5200, L501.1800 #### [facility] [address] [place], [address] MCHC Normal 32-36 [facility] Comment on above: Result Comment: GARY VASQUEZ, SPOKE WITH [place] IN PAT, WILL REDRAW THE DAY OF SURGERY Performed By: #### L 500.2500, M100.651, L100.0100, L501.5200, L501.1800 #### [facility] [address] [place], [address] MCV Normal 81-99 [facility] Comment on above: Result Comment: GARY VASQUEZ, SPOKE WITH [employer]CHA IN PAT, WILL REDRAW THE DAY OF SURGERY Performed By: #### L 500.2500, M100.651, L100.0100, L501.5200, L501.1800 #### [facility] [address] [place], [address] NEUT% Normal 47-70 [facility] Comment on above: Result Comment: GARY VASQUEZ, SPOKE WITH [place] IN PAT, WILL REDRAW THE DAY OF SURGERY Performed By: #### L 500.2500, M100.651, L100.0100, L501.5200, L501.1800 #### [facility] [address] [place], [address] PLT Normal 150-450 [facility] Comment on above: Result Comment: GARY VASQUEZ, SPOKE WITH [employer] IN PAT, WILL REDRAW THE DAY OF SURGERY Performed By: #### L 500.2500, M100.651, L100.0100, L501.5200, L501.1800 #### [facility] [address] [place], [address] RBC Normal 4.2-5.4 [facility] Comment on above: Result Comment: GARY VASQUEZ, SPOKE WITH CONCHA IN PAT, WILL REDRAW THE DAY OF SURGERY Performed By: #### L 500.2500, M100.651, L100.0100, L501.5200, L501.1800 #### [facility] [address] [place], [address] RDW CV Normal 11.6-14.6 [facility] Comment on above: Result Comment: GARY VASQUEZ, SPOKE WITH CONCHA IN [facility], WILL REDRAW THE DAY OF SURGERY Performed By: #### L 500.2500, M100.651, L100.0100, L501.5200, L501.1800 #### [facility] [address] [place], [address] RDW SD Normal 35.1-43.9 [facility] Comment on above: Result Comment: GARY VASQUEZ, SPOKE WITH CONCHA IN [facility], WILL REDRAW THE DAY OF SURGERY Performed By: #### L 500.2500, M100.651, L100.0100, L501.5200, L501.1800 #### [facility] [address] [place], [address] WBC Normal 4.4-11.0 [facility] Comment on above: Result Comment: GARY VASQUEZ, SPOKE WITH CONCHA IN [facility], WILL REDRAW THE DAY OF SURGERY Performed By: #### L 500.2500, M100.651, L100.0100, L501.5200, L501.1800 #### [facility] [address] [place], [address] Carbon dioxide measurementOr dered By: Kurt Mcclellan on 06-07-2024 CO2 [Moles/Vol] 26.0 mmol/L 21.0-32.0 [facility] Chloride measurementOrdered By: Kurt Mcclellan on 06-07-2024 Chloride [Moles/Vol] 108 mmol/L High 98-107 [facility] Estimated glomerular filtrat ion rate (GFR) AmericanOrdered By: Kurt Mcclellan on 06-07-2024 Estimated GFR (MDRD) Amer 73 mL/min >60 [facility] Comment on above: GFR Calc Glomerular filtration rate ( GFR) estimationOrdered By: Kurt Vy on 06-07-2024 Estimated GFR (MDRD) Non-Af Amer 60 mL/min >60 [facility] Comment on above: Non- GFR Calc Glucose measurementOrdered B y: Kurt Acashley on 06-07-2024 Glucose [Mass/Vol] 127 mg/dL High 74-106 [facility] Comment on above: Fasting Glucose resu lt greater than or equal to 126 mg/dL suggests DIABETES MELLITUS per A.D.A. criteria. MR/PAT.Karin 06-07-2024 MR/PAT.CHRISSY [facility] Medical Records Department [address] [place] [address] PAT - Anesthesia 06/07/242058 MR#: [id number] Acct: [id number] Name: RIA ARDON Rep #: [id number] : 1955 68 From: Nathaniel Malik MD PCP: Dr. 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 When Was Last Pacemaker Check QUESTION #4 FULL TEXT: You/Your Family Experience fever (hyperthermia) with Anesthesia Last Oral Intake Last Oral intake: Last Oral Intake NPO since Meds taken in AM with sips of water? 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 Has anyone observed you stop breathing during sleep? STOP Results Positive 06/01/24 14:18 QUESTION #5 FULL TEXT : Do you snore loudly (louder than talking or can be heard through closed doors)? 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 Specify any problems Hx of Preganancy in last 3 N/A 06/01/24 14:18 Months Nurse Filling Out Transfusion NBUCHER 06/01/24 14:18 Questions: Date: 06/01/24 06/01/24 14:18 Time: 14:21 06/01/24 14:18 Patient unable to answer at this time (ie. 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Last Taken ???Type amitriptyline 25 mg tablet 25 mg PO QHS 06/20/19 07/15/23 20:00 History simvastatin 20 mg tablet 20 mg PO DAILY 06/20/19 07/15/23 20:00 History promethazine 25 mg tablet 25 mg PO TID PRN nausea and 05/21/21 Unknown History vomiting metoprolol succinate 25 mg 50 mg PO DAILY 03/16/23 (more content not included)... Normal [facility] MRSA screenOrdered By: Otoniel Mcclellan on 06-07-2024 Nasal Screen MRSA/MSSA [facility] Magnesiumon 06-07-2024 Magnesium [Mass/Vol] 2.1 mg/dL Normal 1.6-2.6 [facility] Comment on above: Performed By: #### L 500.2500, M100.651, L100.0100, L501.5200, L501.1800 #### [facility] [address] [place], [address] Magnesium measurementOrdered By: Kurt Mcclellan on 06-07-2024 Magnesium [Mass/Vol] 2.1 mg/dL 1.6-2.6 [facility] Potassium measurementOrdered By: Kurt Mcclellan on 06-07-2024 Potassium [Moles/Vol] 4.4 mmol/L 3.5-5.1 [facility] Serum anion gap measurementO rdered By: Kurt Mcclellan on 06-07-2024 Anion gap [Moles/Vol] 5 mmol/L 5-15 [facility] Serum or plasma albumin michael urement (mass/volume)Ordered By: Kurt Mcclellan on 06-07-2024 Albumin [Mass/Vol] 3.6 g/dL 3.2-5.0 [facility] Serum or plasma calcium michael urement (mass/volume)Ordered By: Kurt Mcclellan on 06-07-2024 Calcium [Mass/Vol] 9.7 mg/dL 8.5-10.1 [facility] Serum or plasma creatinine m easurement (mass/volume)Ordered By: Kurt Mcclellan on 06-07-2024 Creatinine [Mass/Vol] 0.97 mg/dL 0.55-1.02 [facility] Comment on above: The validity of the calculated GFR & GFRAA in patients over 70 years has not been determined. Clinical correlation is essential. Serum or plasma urea nitroge n measurement (mass/volume)Ordered By: Kurt Mcclellan on 06-07-2024 Urea nitrogen [Mass/Vol] 15 mg/dL 7-18 [facility] Sodium levelOrdered By: Joseph Mcclellan on 06-07-2024 Sodium [Moles/Vol] 138 mmol/L 136-145 [facility] Extremity Lower without Cont raon 06-06-2024 Extremity Lower without Contra [facility] Imaging Services [facility] [place], [place] [id number] Extremity Lower without Contra MR#: [id number] Acct: [id number] Name: RIA ARDON Rep #: [id number] : 1955 F 68 From: Remington Monsalve MD PCP: Dr. Cash Santamaria MD Status: REG CLI Study: Extremity Lower without Contra Date of Exam: 0 06/06/24 Exam# [id number] Ordering Dr: Kurt Mcclellan DO [id number] PROCEDURE: CT LEFT KNEE WITHOUT CONTRAST REASON FOR EXAM: Female, 68 years old. Preoperative planning for the [employer] Robotic knee surgery. Knee pain. TECHNIQUE: Transaxial CT of the hip, knee and ankle were obtained. Coronal and sagittal reconstruction images of the knee were provided. Individualized dose optimization techniques were used for this CT. COMPARISON: None. FINDINGS: Standard protocol for the preoperative planning for the MakoPlasty robotic knee surgery was performed. Osteopenia with mild arthrosis of the left hip, tricompartmental arthrosis most marked medially and mild arthrosis of the tibiotalar joint. CT/Extremity Lower without Contra IMPRESSION: Preoperative M[employer] Robotic knee surgical CT evaluation with findings as described above. Electronically Signed: Remington Monsalve MD at 15:48 EST Reading Location ID and State: [address] [place] [address] , Service support , CC: Dr. Cash Santamaria MD; Dr. Kurt Mcclellan DO Purchasing Associate: Signed Normal [facility] Plycor Operator Office Visit Reporton 01-25-2024 Plycor Operator Office Visit Report [facility] [address], [address] [place] [address] OFFICE VISIT Date of Service: 01/25/24 MR#: [id number] Acct: [id number] Name: RIA ARDON Rep #: [id number] : 1955 Provider: Dr. 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: No Is patient in pain?: No Allergies No Known Allergies Allergy (Verified 01/25/24 08:23) Medications ???Medication ???Instructions ???Recorded ???Confirmed ???Type amitriptyline 25 mg tablet 25 mg PO QHS 06/20/19 01/25/24 History simvastatin 20 mg tablet 20 mg PO DAILY 06/20/19 01/25/24 History promethazine 25 mg tablet 25 mg PO TID PRN nausea and 05/21/21 01/25/24 History vomiting metoprolol succinate 25 mg 50 mg PO DAILY 03/16/23 01/25/24 History tablet,extended release 24 hr naproxen 500 mg tablet 500 mg PO Q12H 06/29/23 01/25/24 History acetaminophen 500 mg capsule 500 mg PO Q6H PRN pain 07/16/23 01/25/24 History ascorbic acid (vitamin C) 500 mg 500 mg PO Q8H PRN pain 07/16/23 01/25/24 History capsule famotidine 20 mg tablet 20 mg PO DAILY 07/16/23 01/25/24 History hydrocodone-acetaminop hen 5-325mg 1 tab PO Q8H 07/16/23 01/25/24 History 5mg-325mg hyoscyamine sulfate 0.125 mg 0.125 mg PO 4X/DAY PRN muscle 07/16/23 01/25/24 History sublingual tablet spasms lactobacillus combo no.11 15 1 cap PO DAILY 07/16/23 01/25/24 History billion cell sprinkle capsule (Probiotic) meloxicam 7.5 mg tablet 7.5 mg PO DAILY 07/16/23 01/25/24 History oxycodone 5 mg tablet 5 mg PO Q4H PRN pain 07/16/23 01/25/24 History sennosides 8.6 mg tablet 8.6 mg PO DAILY 07/16/23 01/25/24 History (Evac-U-Gen (sennosides)) Is last menstrual period known: No Patient : No : No PFSH Medical History Presence of pessary Post-menopausal Alcohol use History of pain when walking Wears glasses Arthritis Bladder disease Former smoker Hypertension Right shoulder pain Bilateral primary osteoarthritis of knee Impingement syndrome, shoulder, left GERD (gastroesophageal reflux disease) High cholesterol Anxiety Surgical History History of cataract extraction with lens replacement History of colonoscopy H/O bladder repair surgery Family History Grandmother Diabetes Mother Heart disease Father Heart disease Esophageal cancer Social History Smoking Status: Former smoker alcohol intake: current details: social substance use type: does not use caffeine: Yes what type of physical activity do you participate in: walking seatbelt use: always do you feel safe at home: Yes additional social history: Deven- both are retired HPI follow up Details: RIA ARDON is a 68 year old who presents for follow up of vaginal bleeding she isn't having anymore bleeding since the pessary has been out. she denies any vaginal bulge or pressure, no prolapse symptoms. denies discharge. US shows stable lining no thickening. History 2 Elective abortions Hx Para 2 Spontaneous abortions Hx # Term Pregnancies Ectopic pregnancies Hx # Pregnancies Multiple births # of living children Past Pregnancies Del. Date Name GA/Weeks Outcome Route Bth Weight Infant Gen Labor Lgth Anesthesia Del Locatn Provider FOB Unknown 1976 Vanda Unknown 1984 Alex CARTER Const Constitutional: Denies fatigue, fever(s), headache(s), increased appetite, poor appetite, weight gain or weight loss GI GI: Reports as per HPI; Denies abdominal pain, constipation, nausea or vomiting : Reports as per HPI; Denies difficulty voiding, dysuria, hematuria, pelvic pain, urinary frequency, urinary incontinence, urinary hesitancy, urinary urgency, vaginal discharge, vaginal dryness, vaginal odor, vaginal pruritus or other Exam Const General: cooperative, healthy appearing, comfortable, no acute distress and well developed Orientation: alert HENMT Head: normal to inspection and normocephalic Ears: hearing grossly normal bilaterally and external ears normal Nose: external nose normal and nares normal Face and sinus: normal facial exam Neck Neck: normal visual inspection, no lymphadenopathy and trachea midline Thyroid: thyroid normal Resp Effort Inspection: normal respiratory effort Musc Other: gross motor intact no deficits, full bilateral strength Skin General: n (more content not included)... Normal [facility] Thin prep Papanicolaou smear with manual screeningOrdered By: Kurt Mcclellan on 07-16-2023 Thin prep Papanicolaou smear with manual screening 85 mg/dL 74-106 [facility] Comment on above: MANAGEMENT OF PATIEN T CARE PER NURSING PROTOCOL Absolute lymphocyte countOrd ered By: Kurt Mcclellan on 06-26-2023 Lymphocytes Auto (Unsp spec) [#/Vol] 2.87 10*3/uL 0.83-4.51 [facility] Automated lymphocyte count a s percentage of total leukocytesOrdered By: Kurt Mcclellan on 06-26-2023 Lymphocytes/100 WBC Auto (Unsp spec) 27.9 % 19-41 [facility] Basophil percentageOrdered B y: Kurt Mcclellan on 06-26-2023 Basophils/100 WBC (Bld) 0.6 % 0-1 [facility] Chloride [Moles/Vol] 109 mmol/L 98-107 [facility] Eosinophils/100 WBC (Bld) 2.4 % 0-5 [facility] Glucose [Mass/Vol] 83 mg/dL 74-106 [facility] Hemoglobin (Bld) [Mass/Vol] 13.2 g/dL 12.0-15.0 [facility] Monocytes/100 WBC (Bld) 7.0 % 0-10 [facility] Neutrophils (Bld) [#/Vol] 6.4 10*3/uL 2.0-7.7 [facility] Neutrophils/100 WBC (Bld) 61.8 % 47-70 [facility] Potassium [Moles/Vol] 4.2 mmol/L 3.5-5.1 [facility] Sodium [Moles/Vol] 140 mmol/L 136-145 [facility] WBC (Bld) [#/Vol] 10.3 10*3/uL 4.4-11.0 [facility] Determination of erythrocyte mean corpuscular volume (MCV)Ordered By: Kurt Mcclellan on 06-26-2023 MCV (RBC) [Entitic vol] 85.1 fL 81-99 [facility] Erythrocyte distribution wid th ratioOrdered By: Kurt Mcclellan on 06-26-2023 Erythrocyte distribution width (RBC) [Ratio] 14.8 % 11.6-14.6 [facility] Erythrocyte distribution wid th standard deviationOrdered By: Kurt Mcclellan on 06-26-2023 Erythrocyte distribution width (RBC) [Entitic vol] 46.0 fL 35.1-43.9 [facility] Hematocrit Auto (Bld) [Volum e fraction]Ordered By: Kurt Mcclellan on 06-26-2023 Hematocrit (Bld) [Volume fraction] 42.1 % 37-47 [facility] Immature granulocytes/100 WB C Auto (Bld)Ordered By: Kurt Mcclellan on 06-26-2023 Immature granulocytes/100 WBC (Bld) 0.300 % 0.0-0.9 [facility] Comment on above: IG% - Immature Granu locytes (promyelocytes, myelocytes and metamyelocytes) > 1% indicates that a LEFT SHIFT is Present. Laboratory - Chemistry and C hemistry - challengeOrdered By: Kurt Mcclellan on 06-26-2023 CO2 [Moles/Vol] 27.0 mmol/L 21.0-32.0 [facility] Urea nitrogen/Creatinine [Mass ratio] 17.2 mg/mg 10-20 [facility] Laboratory - Chemistry and C hemistry - challengeOrdered By: Lg Gallagher on 06-26-2023 Magnesium [Mass/Vol] 2.2 mg/dL 1.6-2.6 [facility] Laboratory - Hematology and Cell countsOrdered By: Kurt Mcclellan on 06-26-2023 MCH (RBC) [Entitic mass] 26.7 pg 27.0-32.0 [facility] MCHC (RBC) [Mass/Vol] 31.4 g/dL 32-36 [facility] Nucleated RBC/100 WBC (Bld) [Ratio] 0 % 0-5 [facility] Platelet mean volume (Bld) [Entitic vol] 9.1 fL 6.2-12.0 [facility] Platelets (Bld) [#/Vol] 388 10*3/uL 150-450 [facility] No Panel InformationOrdered By: Kurt Mcclellan on 06-26-2023 Estimated GFR (MDRD) Amer 77 mL/min >60 [facility] Comment on above: GFR Calc Estimated GFR (MDRD) Non-Af Amer 63 mL/min >60 [facility] Comment on above: Non- GFR Calc Nasal Screen MRSA/MSSA [facility] RBC Auto (Bld) [#/Vol]Ordere d By: Kurt Mcclellan on 06-26-2023 RBC (Bld) [#/Vol] 4.95 10*6/uL 4.2-5.4 [facility] Serum or plasma calcium michael urement (mass/volume)Ordered By: Kurt Mcclellan on 06-26-2023 Calcium [Mass/Vol] 9.8 mg/dL 8.5-10.1 [facility] Serum or plasma creatinine m easurement (mass/volume)Ordered By: Kurt Mcclellan on 06-26-2023 Creatinine [Mass/Vol] 0.93 mg/dL 0.55-1.02 [facility] Comment on above: The validity of the calculated GFR & GFRAA in patients over 70 years has not been determined. Clinical correlation is essential. Serum or plasma urea nitroge n measurement (mass/volume)Ordered By: Kurt Mcclellan on 06-26-2023 Urea nitrogen [Mass/Vol] 16 mg/dL 7-18 [facility] Thin prep Papanicolaou smear with manual screeningOrdered By: Kurt Mcclellan on 06-26-2023 Thin prep Papanicolaou smear with manual screening 4 5-15 [facility] Bilirubin Test strip Ql (U)O rdered By: Cash Santamaria on 05-05-2023 Bilirubin Ql (U) Negative Negative [facility] Culture, urineOrdered By: Fatmata Santamaria on 05-05-2023 Bacteria identified Cx Nom (U) Presumptive E. coli [facility] Ketones Test strip Ql (U)Ord ered By: Cash Santamaria on 05-05-2023 Ketones Ql (U) Negative Negative [facility] Nitrite Test strip Ql (U)Ord ered By: Cash Santamaria on 05-05-2023 Nitrite Ql (U) Negative Negative [facility] Protein Test strip Ql (U)Ord ered By: Cash Santamaria on 05-05-2023 Protein Ql (U) 30 mg/dl Negative [facility] Urine blood detectionOrdered By: Cash Santamaria on 05-05-2023 RBC Ql (U) 50 /ul Negative [facility] Urine clarityOrdered By: Foreign Santamaria on 05-05-2023 Clarity (U) Sl. Cloudy Clear [facility] Urine color determinationOrd ered By: Cash Santamaria on 05-05-2023 Color (U) Yellow Yellow [facility] Urine glucose detectionOrder ed By: Cash Santamaria on 05-05-2023 Glucose Ql (U) Normal mg/dl Normal [facility] Urine leukocyte esterase det ection by dipstickOrdered By: Cash Santamaria on 05-05-2023 Leukocyte esterase Test strip Ql (U) 500 /ul Negative [facility] Urine pHOrdered By: Cash gregorio on 05-05-2023 pH (U) 5.0 [pH] 5.0 - 8.0 [facility] Urine specific gravity measu rementOrdered By: Cash Santamaria on 05-05-2023 Specific gravity (U) [Rel density] 1.010 1.002-1.030 [facility] Urobilinogen Auto test strip Ql (U)Ordered By: Cash Santamaria on 05-05-2023 Urobilinogen Ql (U) Normal mg/dl Normal [facility] Absolute lymphocyte countOrd ered By: Kurt Mcclellan on 04-24-2023 Lymphocytes Auto (Unsp spec) [#/Vol] 2.13 10*3/uL 0.83-4.51 [facility] Basophil percentageOrdered B y: Kurt Mcclellan on 04-24-2023 Basophils/100 WBC (Bld) 0.6 % 0-1 [facility] Chloride [Moles/Vol] 108 mmol/L 98-107 [facility] Eosinophils/100 WBC (Bld) 2.4 % 0-5 [facility] Glucose [Mass/Vol] 102 mg/dL 74-106 [facility] Comment on above: Fasting Glucose resu lt from 100 to 125 mg/dL suggests IMPAIRED HOMEOSTASIS per A.D.A. criteria. Neutrophils (Bld) [#/Vol] 6.7 10*3/uL 2.0-7.7 [facility] Neutrophils/100 WBC (Bld) 68.4 % 47-70 [facility] Potassium [Moles/Vol] 4.1 mmol/L 3.5-5.1 [facility] Sodium [Moles/Vol] 139 mmol/L 136-145 [facility] WBC (Bld) [#/Vol] 9.8 10*3/uL 4.4-11.0 [facility] Blood erythrocytes count (nu mber/volume)Ordered By: Kurt Mcclellan on 04-24-2023 RBC (Bld) [#/Vol] 4.76 10*6/uL 4.2-5.4 [facility] Blood hemoglobin measurement (mass/volume)Ordered By: Kurt Mcclellan on 04-24-2023 Hemoglobin (Bld) [Mass/Vol] 12.5 g/dL 12.0-15.0 [facility] Blood lymphocytes/100 leukoc ytesOrdered By: Kurt Mcclellan on 04-24-2023 Lymphocytes/100 WBC (Bld) 21.7 % 19-41 [facility] Blood monocytes/100 leukocyt esOrdered By: Kurt Mcclellan on 04-24-2023 Monocytes/100 WBC (Bld) 6.5 % 0-10 [facility] Blood platelet mean volumeOr dered By: Kurt Mcclellan on 04-24-2023 Platelet mean volume (Bld) [Entitic vol] 9.2 fL 6.2-12.0 [facility] Determination of erythrocyte mean corpuscular volume (MCV)Ordered By: Kurt Mcclellan on 04-24-2023 MCV (RBC) [Entitic vol] 86.1 fL 81-99 [facility] Hematocrit Auto (Bld) [Volum e fraction]Ordered By: Kurt Mcclellan on 04-24-2023 Hematocrit (Bld) [Volume fraction] 41.0 % 37-47 [facility] Laboratory - Chemistry and C hemistry - challengeOrdered By: Kurt Mcclellan on 04-24-2023 CO2 [Moles/Vol] 29.0 mmol/L 21.0-32.0 [facility] Magnesium [Mass/Vol] 2.2 mg/dL 1.6-2.6 [facility] Urea nitrogen/Creatinine [Mass ratio] 12.7 mg/mg 10-20 [facility] Laboratory - Hematology and Cell countsOrdered By: Kurt Mcclellan on 04-24-2023 Erythrocyte distribution width (RBC) [Entitic vol] 43.5 fL 35.1-43.9 [facility] Erythrocyte distribution width (RBC) [Ratio] 13.8 % 11.6-14.6 [facility] Immature granulocytes/100 WBC (Bld) 0.400 % 0.0-0.9 [facility] Comment on above: IG% - Immature Granu locytes (promyelocytes, myelocytes and metamyelocytes) > 1% indicates that a LEFT SHIFT is Present. MCH (RBC) [Entitic mass] 26.3 pg 27.0-32.0 [facility] Nucleated RBC/100 WBC (Bld) [Ratio] 0 % 0-5 [facility] MCHC Auto (RBC) [Mass/Vol]Or dered By: Kurt Mcclellan on 04-24-2023 MCHC (RBC) [Mass/Vol] 30.5 g/dL 32-36 [facility] No Panel InformationOrdered By: Kurt Mcclellan on 04-24-2023 Estimated GFR (MDRD) Amer 83 mL/min >60 [facility] Comment on above: GFR Calc Estimated GFR (MDRD) Non-Af Amer 69 mL/min >60 [facility] Comment on above: Non- GFR Calc Nasal Screen MRSA/MSSA [facility] Platelets bldOrdered By: Weston Mcclellan on 04-24-2023 Platelets (Bld) [#/Vol] 371 10*3/uL 150-450 [facility] Serum or plasma albumin michael urement (mass/volume)Ordered By: Kurt Mcclellan on 04-24-2023 Albumin [Mass/Vol] 3.4 g/dL 3.2-5.0 [facility] Serum or plasma calcium michael urement (mass/volume)Ordered By: Kurt Mcclellan on 04-24-2023 Calcium [Mass/Vol] 9.8 mg/dL 8.5-10.1 [facility] Serum or plasma creatinine m easurement (mass/volume)Ordered By: Kurt Mcclellan on 04-24-2023 Creatinine [Mass/Vol] 0.86 mg/dL 0.55-1.02 [facility] Comment on above: The validity of the calculated GFR & GFRAA in patients over 70 years has not been determined. Clinical correlation is essential. Serum or plasma urea nitroge n measurement (mass/volume)Ordered By: Kurt Mcclellan on 04-24-2023 Urea nitrogen [Mass/Vol] 11 mg/dL 7-18 [facility] Thin prep Papanicolaou smear with manual screeningOrdered By: Kurt Mcclellan on 04-24-2023 Thin prep Papanicolaou smear with manual screening 2 5-15 [facility] Whole blood hemoglobin A1c/t otal hemoglobin ratio (mass fraction)Ordered By: Kurt Mcclellan on 04-24-2023 HbA1c (Bld) [Mass fraction] 5.4 % 3.8-5.6 [facility] Comment on above: Normal < 5.7 % Predi abetic 5.7 - 6.4 % Diabetic >or= 6.5 % Please note range changes. Gram stain for investigation of transfusion reactionOrdered By: Amie Parrish on 03-02-2023 Microscopic observation Gram stain Nom (Unsp spec) [facility] Microscopic observation Gram stain Nom (Unsp spec) [facility] Thin prep Papanicolaou smear with manual screeningOrdered By: Amie Parrish on 03-02-2023 Genital Culture Presumptive C albicans [facility] Genital Culture Presumptive C albicans [facility] Cervical or vagninal specime n microscopic examination by cytology stain (reported asOrdered By: Amie Parrish on 12-08-2022 Cytology report Cyto stain Doc (Cvx/Vag) Comment . [facility] Comment on above: The Pap smear is a s creening test designed to aid in thedetection of premalignant and malignant conditions of theuterine cervix. It is not a diagnostic procedure andshould not be used as the sole means of detecting cervicalcancer. Both false-positive and false-negative reports dooccur. Detection in cervical specim en of any of human papilloma virus (HPV) 16, 18, 31, 33,Ordered By: Amie Parrish on 12-08-2022 HPV 16+18+31+33+35+39+45+51 +52+56+58+59+66+68 DNA Probe+sig amp Ql (Cvx) Negative Negative [facility] Comment on above: This nucleic acid am plification test detects fourteen high-risk HPV types (16,18,31,33,35,39,45,51,52,56,58,59,66,68)without differentiation. Laboratory - CytologyOrdered By: Amie Parrish on 12-08-2022 Director Print Cyto stain Nom (Cvx/Vag) [ID] Comment . [facility] Comment on above: Abigail Arambula, Cytotec hnologist ([facility]) Laboratory - Miscellaneous t estsOrdered By: Amie Parrish on 12-08-2022 Service comment (Unsp spec) [Interp] Comment . [facility] Comment on above: This liquid based Th inPrep(R) pap test was screened withthe use of an image guided system. Service comment (Unsp spec) [Interp] . . [facility] Liquid-based cerv Pap + CT/G C by BENJIE w reflex to high-risk HPV for ASCUSOrdered By: Amie Parrish on 12-08-2022 Cytology report Cyto stain.thin prep Doc (Cvx/Vag) Comment . [facility] Comment on above: Criteria not met, HP V Genotype not performed.Performed at: - [address] [id number] Director: Karina Rodriguez MD, Phone: [phone] at: =[facility] [id number] Director: Karina Rodriguez MD, Phone: [phone] No Panel InformationOrdered By: Amie Parrish on 12-08-2022 Pap Smear QC Review Comment . [facility] Comment on above: Twila Avilez, Cytot echnologist ([facility]) Pathology report final diagnosis Narrative Comment . [facility] Comment on above: NEGATIVE FOR INTRAEP ITHELIAL LESION OR MALIGNANCY.THIS SPECIMEN WAS RESCREENED PART OF OUR CLAIMS SUPERVISOR PROGRAM. Thin prep Papanicolaou smear with manual screeningOrdered By: Dr. Parrish on 07-02-2022 Thin prep Papanicolaou smear with manual screening Normal genital vanessa isolated [facility] Gram stain for investigation of transfusion reactionOrdered By: Dr. Parrish on 07-01-2022 Microscopic observation Gram stain Nom (Unsp spec) [facility] Culture, urineOrdered By: Dr Oneil Parrish on 06-12-2022 Bacteria identified Cx Nom (U) Escherichia coli [facility] Laboratory - Chemistry and C hemistry - challengeon 12-11-2021 Bilirubin Ql (U) Negative [facility] Work Phone: Glucose Ql (U) Negative [facility] Work Phone: Ketones Ql (U) Trace (5) [facility] Work Phone: pH (U) 6.0 [pH] [facility] Work Phone: Specific gravity (U) [Rel density] 1.020 [facility] Work Phone: Urobilinogen (U) [Mass/Vol] Negative [facility] Work Phone: Laboratory - Hematology and Cell countson 12-11-2021 Hemoglobin Ql (U) Trace [facility] Work Phone: Laboratory - Specimen inform ationon 12-11-2021 Clarity (U) Clear [facility] Work Phone: Color (U) YELLOW [facility] Work Phone: Laboratory - Urinalysison Nitrite Ql (U) Negative [facility] Work Phone: No Panel Informationon 12-11 Urine Leukocytes Positive [facility] Work Phone: Urine Non-Hemolyzed Blood Trace [facility] Work Phone: MG Breast Tomosynthesis Scr Blon 02-09-2017 MG Breast Tomosynthesis Scr Bl Patient Name: RIA ARDON Mammography Exam Date/Time 02/09/2017 11:40:02 EDT Exam MG Breast Tomosynthesis BI Scr Ordering Physician MD ALLIE, RADHA CABALLERO Accession Number [id number] CPT4 Codes 82304 (MG Breast Tomosynthesis Scr Bl), 30358 (MG MAMMO 2D SCREENING) Reason For Exam screening Report PATIENT HISTORY: Patient is postmenopausal. Family history of unknown cancer at age 50 or over in father. No Hormone Replacement Therapy Patient is a former smoker, and smoked for 25 years. Patient's BMI is 32.0. REASON FOR EXAM: screening, asymptomatic. PROCEDURE: MG BREAST TOMOSYNTHESIS BL SCR: FEBRUARY 09, 2017 - 2D/3D Procedure 3D Bilateral CC and MLO view(s) were taken. 2D Bilateral CC and MLO view(s) were taken. Prior study comparison: February 06, 2016, bilateral screening mammogram performed at [facility]. December 27, 2014, bilateral screening mammogram performed at [facility]. There are scattered fibroglandular densities. No suspicious masses, architectural distortions or suspiciously clustered microcalcifications are identified. There is no evidence of skin thickening or nipple retraction. There are no significant changes when compared with prior studies. Markings on images: BB's = Nipples; skin lesions Open chilkat = Palpable Line = Scar 2D digital mammography and tomosynthesis imaging were performed and reviewed with CAD. ASSESSMENT: Category 1 Negative No mammographic evidence of malignancy. RECOMMENDATION: Routine screening mammogram of both breasts in 1 year. Final Signed Date and Time: 02/09/2017 1:22 pm Signed by: MD SHANEKA, [facility] Culture, urine Bacteria identified Cx Nom (U) Escherichia coli [facility] Work Phone: Gram stain for investigation of transfusion reaction Microscopic observation Gram stain Nom (Unsp spec) [facility] Work Phone: Thin prep Papanicolaou smear with manual screening Cytopathology procedure, preparation of smear, genital source Neisseria or beta-hemolytic Streptococcus isolated. [facility] Work Phone: Thin prep Papanicolaou smear with manual screening Neisseria or beta-hemolytic Streptococcus isolated. [facility] Work Phone: Vital Signs Date Time Vital Sign Value Performing Clinician Faci lity 06-30-2024 17:28-0500 Body temperature 97.6 [degF] Dr. Cash Santamaria MD Work Phone: [facility] 06-30-2024 17:28-0500 Diastolic blood pressure 82 mm[Hg] Dr. Cash Santamaria MD Work Phone: [facility] 06-30-2024 17:28-0500 Heart rate 103 /min Dr. Cash Santamaria MD Work Phone: [facility] 06-30-2024 17:28-0500 Respiratory rate 16 /min Dr. Cash Santamaria MD Work Phone: [facility] 06-30-2024 17:28-0500 SaO2% (BldA) [Mass fraction] 98 % Dr. Cash Santamaria MD Work Phone: [facility] 06-30-2024 17:28-0500 Systolic blood pressure 135 mm[Hg] Dr. Cash Santamaria MD Work Phone: [facility] 06-30-2024 13:45-0500 Inhaled oxygen flow rate 4 L/min Dr. Cash Santamaria MD Work Phone: [facility] 06-30-2024 09:36-0500 Body height 154.[address] Cash Santamaria MD Work Phone: [facility] 06-30-2024 09:36-0500 Body mass index (BMI) [Ratio] 35.4 kg/m2 Dr. Cash Santamaria MD Work Phone: [facility] 06-30-2024 09:36-0500 Body weight [address] Cash Santamaria MD Work Phone: [facility] 07-16-2023 14:49-0500 Body temperature 98.2 [degF] Dr. Cash Santamaria Work Phone: [facility] 07-16-2023 14:49-0500 Diastolic blood pressure 75 mm[Hg] Dr. Cash Santamaria Work Phone: [facility] 07-16-2023 14:49-0500 Heart rate 80 /min Dr. Cash Santamaria Work Phone: [facility] 07-16-2023 14:49-0500 Respiratory rate 16 /min Dr. Cash Santamaria Work Phone: [facility] 07-16-2023 14:49-0500 SaO2% (BldA) [Mass fraction] 96 % Dr. Cash Santamaria Work Phone: [facility] 07-16-2023 14:49-0500 Systolic blood pressure 106 mm[Hg] Dr. Cash Santamaria Work Phone: [facility] 07-16-2023 10:15-0500 Body temperature 97 [degF] Dr. Cash Santamaria Work Phone: [facility] 07-16-2023 10:15-0500 Diastolic blood pressure 84 mm[Hg] Dr. Cash Santamaria Work Phone: [facility] 07-16-2023 10:15-0500 Heart rate 86 /min Dr. Cash Santamaria Work Phone: [facility] 07-16-2023 10:15-0500 Inhaled oxygen flow rate 4 L/min Dr. Cash Santamaria Work Phone: [facility] 07-16-2023 10:15-0500 Respiratory rate 16 /min Dr. Cash Santamaria Work Phone: [facility] 07-16-2023 10:15-0500 SaO2% (BldA) [Mass fraction] 100 % Dr. Cash Santamaria Work Phone: [facility] 07-16-2023 10:15-0500 Systolic blood pressure 112 mm[Hg] Dr. Cash Santamaria Work Phone: [facility] 07-16-2023 06:15-0500 Body height 154.[address] Cash Santamaria Work Phone: [facility] 07-16-2023 06:15-0500 Body mass index (BMI) [Ratio] 32.6 kg/m2 Dr. Cash Santamaria Work Phone: [facility] 07-16-2023 06:15-0500 Body weight 78.[address] Cash Santamaria Work Phone: [facility] 05-20-2023 08:27-0500 Body weight 77.[address] Cash Santamaria Work Phone: [facility] 04-28-2023 10:26-0500 Body height 157.[address] Cash Santamaria Work Phone: [facility] 04-28-2023 10:25-0500 Body mass index (BMI) [Ratio] 32.1 kg/m2 Dr. Cash Santamaria Work Phone: [facility] 04-28-2023 10:25-0500 Body weight 79.[address] Cash Santamaria Work Phone: [facility] 04-28-2023 10:25-0500 Diastolic blood pressure 80 mm[Hg] Dr. Cash Santamaria Work Phone: [facility] 04-28-2023 10:25-0500 Systolic blood pressure 126 mm[Hg] Dr. Cash Santamaria Work Phone: [facility] 03-02-2023 16:00-0400 Body height 157.[address] Cash Santamaria Work Phone: [facility] 03-02-2023 15:59-0400 Body mass index (BMI) [Ratio] 31.6 kg/m2 Dr. Cash Santamaria Work Phone: [facility] 03-02-2023 15:59-0400 Body weight 78.[address] Cash Santamaria Work Phone: [facility] 03-02-2023 15:59-0400 Diastolic blood pressure 94 mm[Hg] Dr. Cash Santamaria Work Phone: [facility] 03-02-2023 15:59-0400 Systolic blood pressure 137 mm[Hg] Dr. Cash Santamaria Work Phone: [facility] 12-08-2022 11:05-0400 Body height 157.[address] Cash Santamaria Work Phone: [facility] 12-08-2022 11:03-0400 Body mass index (BMI) [Ratio] 31.8 kg/m2 Dr. Cash Santamaria Work Phone: [facility] 12-08-2022 11:03-0400 Body weight 78.[address] Cash Santamaria Work Phone: [facility] 12-08-2022 11:03-0400 Diastolic blood pressure 84 mm[Hg] Dr. Cash Santamaria Work Phone: [facility] 12-08-2022 11:03-0400 Heart rate 110 /min Dr. Cash Santamaria Work Phone: [facility] 12-08-2022 11:03-0400 Systolic blood pressure 129 mm[Hg] Dr. Cash Santamaria Work Phone: [facility] 10-17-2022 13:13-0400 Body height 157.[address] Cash Santamaria Work Phone: [facility] 10-17-2022 13:12-0400 Body mass index (BMI) [Ratio] 31.4 kg/m2 Dr. Cash Santamaria Work Phone: [facility] 10-17-2022 13:12-0400 Body weight 78.[address] Cash Santamaria Work Phone: [facility] 10-17-2022 13:12-0400 Diastolic blood pressure 75 mm[Hg] Dr. Cash Santamaria Work Phone: [facility] 10-17-2022 13:12-0400 Systolic blood pressure 134 mm[Hg] Dr. Cash Santamaria Work Phone: [facility] 09-08-2022 11:25-0400 Body mass index (BMI) [Ratio] 31.8 kg/m2 Dr. Cash Santamaria Work Phone: [facility] 09-08-2022 11:25-0400 Body weight 79.[address] Cash Santamaria Work Phone: [facility] 09-08-2022 11:25-0400 Diastolic blood pressure 85 mm[Hg] Dr. Cash Santamaria Work Phone: [facility] 09-08-2022 11:25-0400 Systolic blood pressure 139 mm[Hg] Dr. Cash Santamaria Work Phone: [facility] 06-30-2022 09:59-0500 Body height 157.[address] Cash Santamaria Work Phone: [facility] 06-30-2022 09:59-0500 Body mass index (BMI) [Ratio] 32.2 kg/m2 Dr. Cash Santamaria Work Phone: [facility] 06-30-2022 09:59-0500 Body weight [address] Cash Santamaria Work Phone: [facility] 06-30-2022 09:59-0500 Diastolic blood pressure 88 mm[Hg] Dr. Cash Santamaria Work Phone: [facility] 06-30-2022 09:59-0500 Systolic blood pressure 134 mm[Hg] Dr. Cash Santamaria Work Phone: [facility] 03-24-2022 11:39-0500 Body height 157.[address] Cash Santamaria Work Phone: [facility] Work Phone: 03-24-2022 11:37-0500 Body mass index (BMI) [Ratio] 31.8 kg/m2 Dr. Cash Santamaria Work Phone: [facility] 03-24-2022 11:37-0500 Body weight 78.[address] Cash Santamaria Work Phone: [facility] 01-27-2022 12:04-0400 Body height 157.[address] Cash Santamaria Work Phone: [facility] Work Phone: 01-27-2022 12:04-0400 Body mass index (BMI) [Ratio] 31.8 kg/m2 Dr. Cash Santamaria Work Phone: [facility] Work Phone: 01-27-2022 12:04-0400 Body weight 78.[address] Cash Santamaria Work Phone: [facility] Work Phone: 01-27-2022 12:04-0400 Diastolic blood pressure 84 mm[Hg] Dr. Cash Santamaria Work Phone: [facility] Work Phone: 01-27-2022 12:04-0400 Systolic blood pressure 125 mm[Hg] Dr. Cash Santamaria Work Phone: [facility] Work Phone: 12-11-2021 11:21-0400 Body height 157.[address] Cash Santamaria Work Phone: [facility] Work Phone: 12-11-2021 11:21-0400 Body mass index (BMI) [Ratio] 31.5 kg/m2 Dr. Cash Santamaria Work Phone: [facility] Work Phone: 12-11-2021 11:21-0400 Body weight 78.[address] Cash Santamaria Work Phone: [facility] Work Phone: 12-11-2021 11:21-0400 Diastolic blood pressure 84 mm[Hg] Dr. Cash Santamaria Work Phone: [facility] Work Phone: 12-11-2021 11:21-0400 Systolic blood pressure 146 mm[Hg] Dr. Cash Santamaria Work Phone: [facility] Work Phone: 11-21-2021 14:21-0400 Body height 157.[address] Cash Santamaria Work Phone: [facility] Work Phone: 11-21-2021 14:20-0400 Body mass index (BMI) [Ratio] 32 kg/m2 Dr. Cash Santamaria Work Phone: [facility] Work Phone: 11-21-2021 14:20-0400 Body weight 79.[address] Cash Santamaria Work Phone: [facility] Work Phone: 11-21-2021 14:20-0400 Diastolic blood pressure 86 mm[Hg] Dr. Cash Santamaria Work Phone: [facility] Work Phone: 11-21-2021 14:20-0400 Systolic blood pressure 122 mm[Hg] Dr. Cash Santamaria Work Phone: [facility] Work Phone: 09-23-2021 14:01-0400 Diastolic blood pressure 70 mm[Hg] Dr. Cash Santamaria Work Phone: [facility] Work Phone: 09-23-2021 14:01-0400 Systolic blood pressure 120 mm[Hg] Dr. Cash Santamaria Work Phone: [facility] Work Phone: 09-23-2021 13:41-0400 Body mass index (BMI) [Ratio] 31.8 kg/m2 Dr. Cash Santamaria Work Phone: [facility] Work Phone: 09-23-2021 13:41-0400 Body weight 78.[address] Cash Santamaria Work Phone: [facility] Work Phone: Encounters Encounter Date Encounter Type Care Provider Facility Start: 01-25-2025 ambulatory Amie Hernandez lity:[facility] Start: 08-03-2024 End: 08-03-[address] Cash Santamaria MD Work Phone: [facility] Work Phone: Start: 08-03-2024 End: 08-03-[address] Kurt Mcclellan DO -Physical Thera py Work Phone: Start: 06-30-2024 End: 06-30-2024 Admission to same day surgery center Dr. Kurt Mcclellan DO -Surgical Day Care Start: 06-30-2024 End: 06-30-2024 ambulatory Kurt Mcclellan Facility:[facility] Start: 06-24-2024 End: 06-24-[address] Cash Santamaria MD -Physical Thera py Work Phone: Start: 06-24-[address] Cash blood MD -Physical Therapy Work Phone: Start: 06-24-2024 End: 06-24-[address] Cash Santamaria MD Work Phone: [facility] Work Phone: Start: 06-07-2024 End: 06-07-2024 ambulatory Alexandra Townsend Facility:[facility] Start: 06-07-2024 End: 06-07-2024 Non-patient / Non-visit Dr. Alexandra Townsend MD -[place] [facility] Work Phone: Start: 06-06-2024 End: 06-06-[address] Kurt Mcclellan DO -Cat Scan, [facility] Work Phone: Start: 06-06-2024 End: 06-06-2024 ambulatory Kurt Mcclellan Facility:[facility] Start: 01-25-2024 End: 01-25-2024 ambulatory Amie Parrish Facility:[facility] Start: 07-16-2023 End: 07-16-2023 Admission to same day surgery center Dr. Cash Santamaria Work Phone: [facility] Start: 07-16-2023 End: 07-16-[address] Cash Santamaria Work Phone: [facility] Work Phone: Start: 06-12-2023 End: 06-12-[address] Cash Santamaria Work Phone: [facility]-Pre-Admission Testing Work Phone: Start: 05-05-2023 End: 05-05-[address] Cash Santamaria Work Phone: [facility] Work Phone: Start: 05-05-2023 End: 05-05-[address] Cash Santamaria Work Phone: [facility]-Laboratory Work Phone: Start: 04-28-2023 End: 04-28-[address] Cash Santamaria Work Phone: [facility] Work Phone: Start: 04-24-2023 End: 04-24-2023 Non-patient / Non-visit Dr. Cash Santamaria Work Phone: [facility] Work Phone: Start: 04-24-2023 End: 04-24-[address] Cash Santamaria Work Phone: [facility] Work Phone: Start: 04-24-2023 End: 04-24-[address] Cash Santamaria Work Phone: [facility]-Cat Scan, [facility] Work Phone: Start: 03-16-2023 End: 03-16-[address] Cash Santamaria Work Phone: [facility] Work Phone: Start: 03-02-2023 End: 03-02-[address] Cash Santamaria Work Phone: [facility] Work Phone: Start: 03-02-2023 End: 03-02-[address] Cash Santamaria Work Phone: [facility]-Laboratory, Spec[facility] Work Phone: Start: 03-02-2023 End: 03-02-[address] Cash Santamaria Work Phone: [facility] Work Phone: Start: 12-08-2022 End: 12-08-[address] Cash Santamaria Work Phone: [facility] Work Phone: Start: 12-08-2022 End: 12-08-[address] Cash Santamaria Work Phone: [facility] Work Phone: Start: 10-23-2022 End: 10-23-[address] Cash Santamaria Work Phone: [facility] Work Phone: Start: 10-23-2022 End: 10-23-[address] Cash Santamaria Work Phone: [facility] Start: 10-17-2022 End: 10-17-[address] Cash Santamaria Work Phone: [facility] Start: 09-11-2022 End: 09-11-[address] Cash Santamaria Work Phone: [facility] Start: 09-08-[address] Cash Santamaria Work Phone: [facility] Start: 09-08-2022 End: 09-08-[address] Cash Santamaria Work Phone: [facility] Start: 09-05-2022 End: 09-05-[address] Cash Santamaria Work Phone: [facility] Start: 08-28-2022 End: 08-28-[address] Cash Santamaria Work Phone: [facility] Start: 06-30-2022 End: 06-30-[address] Cash Santamaria Work Phone: [facility] Work Phone: Start: 06-30-2022 End: 06-30-[address] [facility] Start: 06-30-2022 End: 06-30-[address] Cash Santamaria Work Phone: [facility] Start: 06-10-2022 End: 06-10-[address] [facility] Start: 05-19-2022 End: 05-19-[address] Cash Santamaria Work Phone: [facility] Start: 04-08-2022 End: 04-08-[address] Cash Santamaria Work Phone: [facility] Work Phone: Start: 04-08-2022 End: 04-08-[address] Cash Santamaria Work Phone: [facility] [place], [facility] Start: 03-24-2022 End: 03-24-[address] Cash Santamaria Work Phone: [facility] Start: 02-27-2022 End: 02-27-[address] Cash Santamaria Work Phone: [facility] Start: 02-17-2022 End: 02-17-[address] Cash Santamaria Work Phone: [facility] Start: 02-10-2022 End: 02-10-[address] Cash Santamaria Work Phone: [facility] Start: 01-27-2022 End: 01-27-[address] Cash Santamaria Work Phone: [facility] Start: 01-27-2022 End: 01-27-[address] Cash Santamaria Work Phone: [facility] Start: 12-11-2021 End: 12-11-[address] Cash [facility] Start: 12-11-2021 End: 12-11-[address] Cash Santamaria Work Phone: [facility] Start: 11-29-2021 End: 11-29-[address] Cash Santamaria Work Phone: [facility] Start: 11-22-2021 End: 11-22-[address] Cash [facility] Start: 11-21-2021 End: 11-21-[address] Cash Santamaria Work Phone: [facility] Start: 09-23-2021 End: 09-23-[address] Cash Santamaria Work Phone: [facility] Start: 08-26-2021 End: 08-26-[address] Cash Santamaria Work Phone: [facility] Start: 02-09-2017 Ambulatory Radha Perkins [facility] Procedures Date Procedure Procedure Detail Performing Clinician Start: 06-07-2024 Methicillin resistan t Staphylococcus aureus screening test Dr. Cash Santamaria MD Work Phone: Start: 06-06-2024 MRI of lower extremity Dr. Cash Santamaria MD Work Phone: Start: 07-16-2023 Total Knee Replaceme nt Robotic Arm Kuldip (Right) Dr. Cash Santamaria Work Phone: Start: 06-26-2023 Nasal Screen MRSA/MSSA Dr. Cash Santamaria Work Phone: Start: 05-05-[address] Porfirio Santamaria Work Phone: Start: 04-24-2023 Nasal Screen MRSA/MSSA Dr. Cash Santamaria Work Phone: Start: 04-24-2023 MRI of lower extremity Dr. Cash Santamaria Work Phone: Start: 03-02-2023 Cytopathology proced ure, preparation of smear, genital source Dr. Cash Santamaria Work Phone: Start: 03-02-2023 Investigation of transfusion reaction Dr. Cash Santamaria Work Phone: Start: 12-08-2022 Screening mammography Amanda Santamaria Work Phone: Start: 10-23-[address] Cash Santamaria Work Phone: Start: 08-28-2022 Plain X-ray of shoulder Dr. Cash Santamaria Work Phone: Start: 04-08-[address] Cash Santamaria Work Phone: Start: 01-27-2022 Plain X-ray of shoulder Dr. Cash Santamaria Work Phone: Start: 08-26-2021 Radiologic examinati on of knee Dr. Cash Santamaria Work Phone: Cytopathology proced ure, preparation of smear, genital source Dr. Cash Santamaria Work Phone: Cytopathology proced ure, preparation of smear, genital source Dr. Cash Santamaria Work Phone: Investigation of transfusion reaction Dr. Csah Santamaria Work Phone: Investigation of transfusion reaction Dr. Cash Santamaria Work Phone: Urine culture Dr. Cash piedra Work Phone: Urine culture Dr. Cash piedra Work Phone: Plan of Treatment Date Care Activity Detail Author Start: 06-30-2024 Anesth open/surg arthrs total knee arthroplasty ANESTH KNEE ARTHROPLASTY [facility] Start: 06-30-2024 Arthrp kne condyle&platu medial&lat compartments TOTAL KNEE ARTHROPLASTY [facility] Start: 06-30-2024 Injection aa&/strd femoral nerve NJX AA&/STRD FEMORAL NRV IMG [facility] Start: 06-30-2024 Application of ice collar, cap or bag [facility] Start: 06-30-2024 Exercises [facility] Start: 06-30-2024 Incentive spirometry [facility] Start: 06-30-2024 Neurovascular assessment [facility] Start: 06-30-2024 Patient discharge [facility] Start: 06-30-2024 Patient education [facility] Start: 06-30-2024 Provision of activity privileges [facility] Start: 06-30-2024 Referral to service [facility] Start: 06-30-2024 Vital signs measurements [facility] Start: 06-30-2024 Wound care [facility] Start: 06-30-2024 [facility] Start: 06-30-2024 Recommendation to continue with treatment [facility] Start: 06-01-2024 Electrocardiographic procedure [facility] Start: 07-16-2023 Application of ice collar, cap or bag [facility] Start: 07-16-2023 Exercises [facility] Start: 07-16-2023 Incentive spirometry [facility] Start: 07-16-2023 Neurovascular assessment [facility] Start: 07-16-2023 Patient discharge [facility] Start: 07-16-2023 Patient education [facility] Start: 07-16-2023 Provision of activity privileges [facility] Start: 07-16-2023 Recommendation to continue with treatment [facility] Start: 07-16-2023 Referral to service [facility] Start: 07-16-2023 Vital signs measurements [facility] Start: 07-16-2023 Wound care [facility] Start: 07-16-2023 [facility] Start: 12-08-2022 Liquid based cervical cytology screening [facility] Start: 01-27-2022 Patient referral [facility] Work Phone: Electrocardiographic procedure [facility] MG Breast - bilatera l Screening [facility] MG Breast - bilatera l Screening [facility] MR Lower Extremity Joint [facility] Work Phone: Path report.final Dx Spec [facility] Patient referral [facility] Work Phone: [facility] Payers Date Payer Category Payer Medicare [id number] 2024 Self-pay [id number] 2024 Medicare [id number] Unknown Unknown [id number] Unknown [id number] 2.16.8 [id number] Unknown [id number] 2.16.8 [id number] Unknown [id number] 2.16.8 [id number] Unknown [id number] 2.16.8 [id number] Unknown [id number] 2.16.8 [id number] Unknown [id number] 2.16.8 [id number] Unknown [id number] 2.16.8 [id number] Social History Date Type Detail Facility Start: 11-21-2021 End: 06-29-2023 Tobacco smoking status NHIS Unknown if ever smoked [facility] Start: 1955 Sex Assigned At Female [facility] Start: 06-01-2024 Tobacco smoking status NHIS Ex-smoker (finding) [facility] Start: 08-05-2024 End: 08-17-2024 Sex Female (finding) [facility] NEGATED: Highlighted row [facility] Medical Equipment Procedure Code Equipment Code Equipment Origin al Text Equipment Identifier Dates ([id number]) Uncoated knee fe mur prosthesis, metallic ()[id number] FDA Start: 07-16-2023 ([id number]) Uncoated knee ti regan prosthesis, metallic ()[id number] FDA Start: 07-16-2023 Orthopaedic ceme nt, non-antimicrobial ()[id number] [id number] FDA Start: 07-16-2023 ([id number]) Polyethylene pat sebastien prosthesis ()[id number] [id number] FDA Start: 07-16-2023 ([id number]) Tibial insert ()[id number] [id number] FDA Start: 07-16-2023 ([id number]) Uncoated knee fe mur prosthesis, metallic ()[id number] [id number] FDA Start: 06-30-2024 ([id number]) Uncoated knee ti regan prosthesis, metallic ()[id number] [id number] FDA Start: 06-30-2024 Orthopaedic ceme nt, non-antimicrobial ()[id number] [id number] FDA Start: 06-30-2024 ([id number]) Polyethylene pat sebastien prosthesis ()[id number] [id number] FDA Start: 06-30-2024 ([id number]) Tibial insert ()[id number] FDA Start: 06-30-2024 Goals Date Patient Goal Desired Activity /State Functional Status Date Assessment Result Facility 07-16-2023 Functional status Ambulates;Bathroom Priv ilege [facility] Work Phone: 07-16-2023 Functional status Tolerates Activity Well [facility] Work Phone: Mental Status Date Assessment Result Facility 06-30-2024 Cognitive function Level Of Consciousness Sedated [facility] Work Phone: 06-30-2024 Cognitive function Voice/Name [facility] Work Phone: 07-16-2023 Cognitive function Voice/Name [facility] Work Phone: Clinical Notes 12-08-2022 to 08-16-2024 Note Date & Type Note Facility 08-16-2024 Discharge summary Note Date/Time August 16, 2024 1:12 pm [facility] Physical [facility] [address] [place] [address] [address] [place] [address] / REHABILITATION SERVICES DISCHARGE SUMMARY MR#: [id number] Acct: [id number] Name: RIA ARDON Rep #: [id number] : 1955 68 From: Lg Hernandez DPT, OCS, CSCS Referring Dr.: Dr. Cash Santamaria MD Status : REG RCR Insurance: MMO MEDICARE SELF PAY INSURANCE Patient Information Patient Information: RIA ARDON was seen in my office for initial evaluation on 06/24/24. The following Plan of Care was established for this patient: POC Established Initial Frequency: 1x/Week Initial Duration: 4-6 Weeks Anticipated Interventions Patient/Client Instruction: Educate patient on: Condition and Plan of Care For the Purpose of:: To decrease pain, To improve nutrient delivery to tissue, To improve muscle performance and motor function and To increase tolerance to activity/condition/position Therapeutic Exercise to Include: Balance training For the Purpose of:: To increase tolerance to activity/condition/position and Toimprove ability of physical actions for home/community/work/leisure Last Seen Last Seen: This patient was last seen in our office 06/24/24. Pertinent comments regardingtheir Physical therapy will appear below: Pt seen for one visit and POC established but could not return due to having a TKA performed and rehabbing for that. She has been in here numerous times sincefor TKA rehab and no concerns with dizziness that would warrant return to PT. iwill discontinue at this time At this point I will be discontinuing this patient from physical therapy. I would be happy to see this patient again in the future if found appropriate by the physician. Thank you! Lg Hernandez DPT, SARAH, CSCS Balance/Gait/Functional tests Balance/Special Test Scores Functional Gait Assessment Score: 22 % Disability: 26.6700 Dizziness Score: 42 <Electronically signed by SARAH Ruffin DPT, CSCS> 08/16/24 1312 CC: Dr. Cash Santamaria MD ~ EBG Signed [facility] Work Phone: 1(860) 943-446404-08-2025 Discharge summary [facility] Physical Therapy [facility] [address] [place] [address] [address] [place] [address] / REHABILITATION SERVICES DISCHARGE SUMMARY MR#: [id number] Acct: [id number] Name: RIA ARODN Rep #: [id number] : 1955 68 From: Lg Hernandez DPT, SARAH, CSCS Referring Dr.: Dr. Cash Santamaria MD Status : REG RCR Insurance: MMO MEDICARE SELF PAY INSURANCE Patient Information Patient Information: RIA ARDON was seen in my office for initial evaluation on 06/24/24. The following Plan of Care was established for this patient: POC Established Initial Frequency: 1x/Week Initial Duration: 4-6 Weeks Anticipated Interventions Patient/Client Instruction: Educate patient on: Condition and Plan of Care For the Purpose of:: To decrease pain, To improve nutrient delivery to tissue, To improve muscle performance and motor function and To increase tolerance to activity/condition/position Therapeutic Exercise to Include: Balance training For the Purpose of:: To increase tolerance to activity/condition/position and Toimprove ability of physical actions for home/community/work/leisure Last Seen Last Seen: This patient was last seen in our office 06/24/24. Pertinent comments regardingtheir Physical therapy will appear below: Pt seen for one visit and POC established but could not return due to having a TKA performed and rehabbing for that. She has been in here numerous times sincefor TKA rehab and no concerns with dizziness that would warrant return to PT. iwill discontinue at this time At this point I will be discontinuing this patient from physical therapy. I would be happy to see this patient again in the future if found appropriate by the physician. Thank you! Lg Hernandez, DPT, OCS, CSCS Balance/Gait/Functional tests Balance/Special Test Scores Functional Gait Assessment Score: 22 % Disability: 26.6700 Dizziness Score: 42 08/16/24 1312 CC: Dr. Cash Santamaria MD ~ EBG Signed [facility]03-26-2025 Discharge summary Author Jerardo Baig [facility] Note Date/Time August 03, 2024 7:0 0pm [facility] [address] [place] [address] [address] [place] [address] / REHABILITATION SERVICES DISCHARGE SUMMARY MR#: [id number] Acct: [id number] Name: RIA ARDON Rep #: [id number] : 1955 68 From: Jerardo Baig PT, ATC Referring DrOneil: Dr. Kurt Mcclellan DO Status : REG RCR Insurance: MMO MEDICARE SELF PAY INSURANCE Discharge Summary D/C summary: It has been my pleasure to treat RIA ARDON referred by Dr. Kurt Mcclellan DO, with the diagnosis of L TKA 06/30/24 for a total of 10 visit(s). Discharge Date: Please see the following information for a summary of their discharge status. Subjective Subjective: I am ready to continue on my own. Pain L knee pain: Pain Intensity (Out of 10): 0 SI: Pain Intensity (Out of 10): 0 IT , L side only: Pain Intensity (Out of 10): 0 Overall Improvement % Improvement: 70 Objective Objective/Function: L knee pain ranges from 0-5/10 L knee ROM: 0-5-115 degrees L knee MMT: flex= 14, ext= 32 #F Pt is I with HEP and gym routine Goals Goal 1:: Decrease L knee pain x 50% to aid with sleep Goal Progress: Goal Met Goal 2:: Increase L knee ROM x 30 degrees to aid with restoring a more normalized gait pattern Goal Progress: Goal Met Goal 3:: Increase L knee strength x 10#F to aid with stair negotiation Goal Progress: Goal Met Goal 4:: I with HEP Goal Progress: Goal Met Plan Plan: Discharge to HEP D/C Information d/c sentence: If there are questions or concerns regarding this patient's physical therapy, please feel free to call me at [phone]. Thank you for the referral of thispatient. Sincerely, Jerardo Baig PT, ATC Balance/Gait/Functional tests Balance/Special Test Scores WOMAC Total Score: 28 WOMAC Percentage: 70.8400 Improvement % Improvement: 70 <Electronically signed by Jerardo Baig PT, ATC> 08/03/24 1404 CC: Dr. Cash Santamaria MD; Dr. Kurt Mcclellan DO ~ [facility] Signed [facility] Work Phone: 1(629) 501-567303-26-2025 Discharge summary [facility] Physical [facility] [address] [place] [address] [address] [place] [address] / REHABILITATION SERVICES DISCHARGE SUMMARY MR#: [id number] Acct: [id number] Name: RIA ARDON Rep #: [id number] : 1955 68 From: Jerardo M Hartzler PT, ATC Referring Dr.: Dr. Kurt Mcclellan DO Status : REG RCR Insurance: MMO MEDICARE SELF PAY INSURANCE Discharge Summary D/C summary: It has been my pleasure to treat RIA ARDON referred by Dr. Kurt Mcclellan DO, with thediagnosis of L TKA 06/30/24 for a total of 10 visit(s). Discharge Date: Please see the following information for a summary of their discharge status. Subjective Subjective: I am ready to continue on my own. Pain L knee pain: Pain Intensity (Out of 10): 0 SI: Pain Intensity (Out of 10): 0 IT , L side only: Pain Intensity (Out of 10): 0 Overall Improvement % Improvement: 70 Objective Objective/Function: L knee pain ranges from 0-5/10 L knee ROM: 0-5-115 degrees L knee MMT: flex= 14, ext= 32 #F Pt is I with HEP and gym routine Goals Goal 1:: Decrease L knee pain x 50% to aid with sleep Goal Progress: Goal Met Goal 2:: Increase L knee ROM x 30 degrees to aid with restoring a more normalized gait pattern Goal Progress: Goal Met Goal 3:: Increase L knee strength x 10#F to aid with stair negotiation Goal Progress: Goal Met Goal 4:: I with HEP Goal Progress: Goal Met Plan Plan: Discharge to HEP D/C Information d/c sentence: If there are questions or concerns regarding this patient's physical therapy, please feel free to call me at [phone]. Thank you for the referral of thispatient. Sincerely, Jerardo Baig, PT, ATC Balance/Gait/Functional tests Balance/Special Test Scores WOMAC Total Score: 28 WOMAC Percentage: 70.8400 Improvement % Improvement: 70 08/03/24 1404 CC: Dr. Cash Santamaria MD; Dr. Kurt Mcclellan DO ~ [facility] Signed [facility]03-07-2024 Procedure [facility] 07-16-2023 Procedure [facility]07-31-2023 NotePap Smear Specimen AdequacyJuly 2022 11:59pmComment.Satisfactory for evaluation. Endocervical and/or squamous metaplasticcells (endocervical component)are present.[facility] INTERFACED A#[id number] University of Toledo Medical CenterComment on above: Satisfactory for evaluation. Endocervical and/or squamous metaplasticcells (endocervical component)are present.Evaluation note* Diagnosis Onset Date Resolution Status Left knee pain acute Osteoarthritis of left knee acute Cystocele and rectocele with incomplete uterovaginal prolapse acute Pessary maintenance acute Cystocele and rectocele with incomplete uterovaginal prolapse acute Vaginal discharge acute [facility] Work Phone: Evaluation note* Diagnosis Onset Date Resolution Status Left knee pain acute Osteoarthritis of left knee acute Cystocele and rectocele with incomplete uterovaginal prolapse acute Pessary maintenance acute Cystocele and rectocele with incomplete uterovaginal prolapse acute Vaginal discharge acute Osteoarthritis of left knee acute UTI (urinary tract infection) noneactive [facility] Work Phone: Evaluation note* Diagnosis Onset Date Resolution Status Cystocele and rectocele with incomplete uterovaginal prolapse acute Vaginal discharge acute Osteoarthritis of left knee acute UTI (urinary tract infection) noneactive Pessary maintenance acute Vaginal discharge acute Bilateral primary osteoarthritis of knee acute Impingement syndrome, shoulder, left acute Bilateral primary osteoarthritis of knee acute Bilateral primary osteoarthritis of knee acute Bilateral primary osteoarthritis of knee acute [facility] Work Phone: Evaluation note* Diagnosis Onset Date Resolution Status Pessary maintenance acute Vaginal discharge resolved Bilateral primary osteoarthritis of knee acute Impingement syndrome, shoulder, left acute Bilateral primary osteoarthritis of knee acute Bilateral primary osteoarthritis of knee acute Bilateral primary osteoarthritis of knee acute Cystocele and rectocele with incomplete uterovaginal prolapse acute Left ovarian cyst acute Pessary maintenance acute [facility] Work Phone: Evaluation note* Diagnosis Onset Date Resolution Status Cystocele and rectocele with incomplete uterovaginal prolapse acute Left ovarian cyst acute Pessary maintenance acute Bilateral primary osteoarthritis of knee acute Impingement syndrome, shoulder, left acute Pessary maintenance acute [facility] Work Phone: Evaluation note* Diagnosis Onset Date Resolution Status Bilateral primary osteoarthritis of knee acute Right shoulder pain acute Bilateral primary osteoarthritis of knee acute Encounter for annual routine gynecological examination acute Pessary maintenance acute Bilateral primary osteoarthritis of knee acute Cystocele and rectocele with incomplete uterovaginal prolapse acute Left ovarian cyst acute Pessary maintenance acute Postmenopausal bleeding acid e [facility] Work Phone: Evaluation note* Diagnosis Onset Date Resolution Status Bilateral primary osteoarthritis of knee acute Right shoulder pain acute Bilateral primary osteoarthritis of knee acute Encounter for annual routine gynecological examination acute Pessary maintenance acute Bilateral primary osteoarthritis of knee acute Cystocele and rectocele with incomplete uterovaginal prolapse acute Left ovarian cyst acute Pessary maintenance acute [facility]menopausal bleeding acut e [facility] Diagnosis Onset Date Resolution Status Postmenopausal bleeding reso lved Cystocele and rectocele with incomplete uterovaginal prolapse acute Vaginal discharge acute [facility] Work Phone: Evaluation note* Diagnosis Onset Date Resolution Status Cystocele and rectocele with incomplete uterovaginal prolapse acute Bilateral primary osteoarthritis of knee acute Cystocele and rectocele with incomplete uterovaginal prolapse acute Pessary maintenance acute [facility] Work Phone: Evaluation note* Diagnosis Onset Date Resolution Status Cystocele and rectocele with incomplete uterovaginal prolapse acute Pessary maintenance acute [facility] Work Phone: Evaluation noteNo assessment information available [facility] Work Phone: Hospital Discharge instructions Additional Instructions [facility] Reason for referral (narrative)No reason for referral [facility] Summary Purpose Family History No Family History Records Found Relationship Condition Age at Onset Recorded Date/T elier grandmother Diabetes mellitus Unknown mother Cardiac disease Unknown father Cardiac disease Unknown Malignant neoplasm of esophagus Unknown Advance Directives No Advanced Directives Records Found Advance Directive Response Recorded Date/ Time Living Will Yes April 22 023 1:31pm Power of Validation Specialist Yes April 22, 2023 1:31pm Advance Directive Response Recorded Date/ Time Name of Medical Power of Validation Specialist - DEVEN ARDON April 22, 2023 1:31pm Name of Medical Power of Validation Specialist SPOUSE June 29, 2023 1:46pm Living Will Yes June 29 2 024 1:46pm Power of Validation Specialist Yes June 29, 2023 1:46pm Advance Directive Response Recorded Date/ Time Living Will Yes June 01 3:18pm Do you have a Healthcare Power of Validation Specialist? Yes June 01, 2024 3:18pm Name of Medical Power of Validation Specialist June 01, 2024 3:18pm Chief Complaint and Reason for Visit Chief Complaint LEFT KNEE xray 3 month follow up vaginal pain, declined sooner SM only Reason for Visit Left knee pain Osteoarthritis of left knee Cystocele and rectocele with incomplete uterovaginal prolapse Pessary maintenance Cystocele and rectocele with incomplete uterovaginal prolapse Vaginal discharge Chief Complaint LEFT KNEE xray 3 month follow up vaginal pain, declined sooner SM only LEFT KNEE possible UTI Reason for Visit Left knee pain Osteoarthritis of left knee Cystocele and rectocele with incomplete uterovaginal prolapse Pessary maintenance Cystocele and rectocele with incomplete uterovaginal prolapse Vaginal discharge Osteoarthritis of left knee UTI (urinary tract infection) Chief Complaint vaginal pain, declin ed sooner SM only LEFT KNEE possible UTI PESSARY CHECK LEFT SHOULDER xray Left Knee Left Knee Left Knee Reason for Visit Cystocele and rectoc serene with incomplete uterovaginal prolapse Vaginal discharge Osteoarthritis of left knee UTI (urinary tract infection) Pessary maintenance Vaginal discharge Bilateral primary osteoarthritis of knee Impingement syndrome, shoulder, left Bilateral primary osteoarthritis of knee Bilateral primary osteoarthritis of knee Bilateral primary osteoarthritis of knee Chief Complaint PESSARY CHECK LEFT SHOULDER xray Left Knee Left Knee Left Knee pessary check LT OVARIAN CYST Reason for Visit Pessary maintenance Vaginal discharge Bilateral primary osteoarthritis of knee Impingement syndrome, shoulder, left Bilateral primary osteoarthritis of knee Bilateral primary osteoarthritis of knee Bilateral primary osteoarthritis of knee Cystocele and rectocele with incomplete uterovaginal prolapse Left ovarian cyst 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 Complaint pessary check LT OVARIAN CYST RIGHT KNEE E ORDER pessary check (leave as 20 mins) Reason for Visit Cystocele and rectoc serene with incomplete uterovaginal prolapse Left ovarian cyst Pessary maintenance Bilateral primary osteoarthritis of knee Impingement syndrome, shoulder, left 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 Complaint LEFT KNEE room 2 BI LAT KNEE 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) *3 mo pessary/breast exam BL KNEE PMB POSTMENOPAUSAL BLEEDING Reason for Visit Bilateral primary os teoarthritis of knee Right shoulder pain Bilateral primary osteoarthritis of knee Encounter for annual routine gynecological examination Pessary maintenance Bilateral primary osteoarthritis of knee Cystocele and rectocele with incomplete uterovaginal prolapse Left ovarian cyst Pessary maintenance Postmenopausal bleeding Chief Complaint LEFT KNEE room 2 BI LAT KNEE 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) *3 mo pessary/breast exam BL KNEE PMB POSTMENOPAUSAL BLEEDING 3 M FU/possible EMB SCREENING/ ADD LABSPEC Reason for Visit Bilateral primary os teoarthritis of knee Right shoulder pain Bilateral primary osteoarthritis of knee Encounter for annual routine gynecological examination Pessary maintenance Bilateral primary osteoarthritis of knee Cystocele and rectocele with incomplete uterovaginal prolapse Left ovarian cyst Pessary maintenance Postmenopausal bleeding Postmenopausal bleeding Chief Complaint 3 M FU/possible EMB SCREENING/ ADD LABSPEC 3 M FU Reason for Visit Postmenopausal bleed ing Cystocele and rectocele with incomplete uterovaginal prolapse Vaginal discharge Chief Complaint 3 M FU BL KNEE RIGHT KNEE LUCAS PROTOCAL PREOP pessary cleaning, SM pt Reason for Visit Cystocele and rectoc serene with incomplete uterovaginal prolapse Bilateral primary osteoarthritis of knee Cystocele and rectocele with incomplete uterovaginal prolapse 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 TO FAX August 03, 2024 12:00pm Additional Source Comments INFORMATION SOURCE (unrecogn ized section and content) DATE CREATED AUTHOR 11/03/2017 [facility] DATE CREATED AUTHOR AUTHOR'S ORGANIZ ATION 12/29/2024 [facility] DATE CREATED AUTHOR AUTHOR'S ORGANIZ ATION 01/22/2025 [facility] Care Teams (unrecognized sec tion and content) Team Status: Active Member Role Status Dates Dr. Cash Santamaria MD Family Provider Active Dr. Cash Santamaria MD Primary Care Provider Active Team Status: Inactive Member Role Status Dates Dr. Cash Santamaria MD Primary Care Provider, Refer ring Provider Active Dr. Amie Parrish MD Attending Provider Active Team Status: Inactive Member Role Status Dates Dr. Cash Santamaria MD Primary Care Provider, Refer ring Provider Active Lobito Batres MD Attending Provider Active Team Status: Inactive Member Role Status Dates Dr. Cash Santamaria MD Primary Care Provider Active Dr. Amie Parrish MD Attending Provider Active Team Status: Inactive Member Role Status Dates Dr. Cash Santamaria MD Primary Care Provider Active Dr. Amie Parrish MD Attending Provider, Referr ing Provider Active Team Status: Inactive Member Role Status Dates Dr. Cash Santamaria MD Primary Care Provider Active Dr. Rakesh Conley MD Attending Provider Active Team Status: Inactive Member Role Status Dates Dr. Cash Santamaria MD Referring Provider Active Dr. Amie Parrish MD Attending Provider Active Team Status: Inactive Member Role Status Dates Mony Sarmiento BOX FEEDER, BOX FEEDER-C Attending Provider, Referring Provider Active Dr. Cash Santamaria MD Primary Care Provider Active Dr. Amie Parrish MD Other Provider Active Team Status: Inactive Member Role Status Dates Dr. Amie Parrish MD Attending Provider Active Dr. Cash Santamaria MD Primary Care Provider, Refer ring Provider Active Team Status: Inactive Member Role Status Dates Dr. Cash Santamaria MD Primary Care Provider, Refer ring Provider Active Mony Sarmiento BOX FEEDER, BOX FEEDER-C Attending Provider Active Team Status: Active Member Role Status Dates Dr. Cash Santamaria MD Primary Care Provider Active Dr. Alexandra Townsend MD Attending Provider Activ e Dr. Kurt Mcclellan DO Referring Provider Active Team Status: Inactive Member Role Status Dates Dr. Cash Santamaria MD Primary Care Provider Active Dr. Kurt Mcclellan DO Attending Provider, Referrin g Provider Active Team Status: Inactive Member Role Status Dates Dr. Cash Santamaria MD Primary Care Provider, Atten ding Provider Active Team Status: Active Member Role Status Dates Dr. Cash Santamaria MD Primary Care Provider Active Team Status: Inactive Member Role Status Dates Dr. Cash Santamaria MD Primary Care Provider Active Start: June 06, 2024 End: June 06, 2024 Dr. Kurt Mcclellan DO Attending Provider Active Start: June 06, 2024 End: June 06, 2024 Dr. Kurt Mcclellan DO Referring Provider Active Start: June 06, 2024 End: June 06, 2024 Team Status: Active Member Role Status Dates Dr. Cash Santamaria MD Primary Care Provider Active Start: June 07, 2024 End: June 07, 2024 Dr. Alexandra Townsend MD Attending Provider Activ e Start: June 07, 2024 End: June 07, 2024 Dr. Kurt Mcclellan DO Referring Provider Active Start: June 07, 2024 End: June 07, 2024 Team Status: Active Member Role Status Dates Dr. Cash Santamaria MD Primary Care Provider Active Start: June 24, 2024 Dr. Cash Santamaria MD Attending Provider Active Start: June 24, 2024 Dr. Cash Santamaria MD Referring Provider Active Start: June 24, 2024 Team Status: Inactive Member Role Status Dates Dr. Cash Santamaria MD Primary Care Provider Active Start: June 30, 2024 End: June 30, 2024 Dr. Kurt Mcclellan DO Attending Provider Active Start: June 30, 2024 End: June 30, 2024 Dr. Kurt Mcclellan DO Referring Provider Active Start: June 30, 2024 End: June 30, 2024 Team Status: Inactive Member Role Status Dates Dr. Cash Santamaria MD Primary Care Provider Active Start: August 03, 2024 End: August 03, 2024 Dr. Kurt Mcclellan DO Attending Provider Active Start: August 03, 2024 End: August 03, 2024 Dr. Kurt Mcclellan DO Referring Provider Active Start: August 03, 2024 End: August 03, 2024 Team Status: Inactive Member Role Status Dates Dr. Cash Santamaria MD Primary Care Provider Active Start: June 24, 2024 End: June 24, 2024 Dr. Cash Santamaria MD Attending Provider Active Start: June 24, 2024 End: June 24, 2024 Dr. Cash Santamaria MD Referring Provider Active Start: June 24, 2024 End: June 24, 2024 FOR RECORDS PERTAINING TO PATIENTS WHO ARE OR HAVE BEEN ENROLLED IN A CHEMICAL DEPENDENCY/SUBSTANCEABUSE PROGRAM, SOME INFORMATION MAY BE OMITTED. This clinical summary was aggregated from multiple sources. Caution should be exercised in using it in the provision of clinical care. This summary normalizes information from multiple sources, and as a consequence, information in this document may materially change the coding, format and clinical context of patient data. In addition, data may be omitted in some cases. CLINICAL DECISIONS SHOULD BE BASED ON THE PRIMARY CLINICAL RECORDS. [facility] [employer] [facility] provides no warranty or guarantee of the accuracy or completeness of information in this document.
== END | disposition home or self-care (01) ==
LOC: OPBI 12:31
PROVIDERS: PCP Family Medicine; Referring Provider Obstetrics & Gynecology; Visit Provider Obstetrics & Gynecology
DX: Z12.31 Encounter for screening mammogram for malignant neoplasm of breast (principal)
CPT/HCPCS: 77063; 77067

== ENCOUNTER → 2025-04-26 | Outpatient (CLI) | payer MEDICARE, SELFPAY ==
--- NOTE | 2025-04-26 14:48 | CT_ITS ---
PROCEDURE: LIMITED CHEST CT CARDIAC ONLY 04/26/2025 REASON FOR EXAM: SCREEN. Family history coronary artery disease. Hyperlipidemia and hypertension. TECHNIQUE: Procedure Code: [id number] Modality: CT Procedure: LIMITED CHEST CT CARDIAC ONLY One or more dose reduction techniques were used (e.g., Automated exposure control, adjustment of the mA and/or kV according to patient size, use of iterative reconstruction technique). RADIATION DOSE SUMMARY: CTDlvol: 12.19 mGy DLP: 219.42 mGycm COMPARISON: None. CT/Limited Chest CT Cardiac Only IMPRESSION: Prominent pulmonary artery segments proximally, concerning for possible pulmona ry artery hypertension; consider further evaluation if clinically indicated. Limited imaging of the lungs demonstrates no acute process. No pleural effusion or pneumothorax is seen in visualized areas. No adenopathy is noted. The visualized upper abdomen demonstrates no significant abnormality. Reading Location: [place] [id number]
--- NOTE | 2025-04-26 17:34 | CA.SCORE ---
Calcium Scoring Date of Study:: 04/26/25 Indications Indications: FH Coronary Calcium Scoring: High-resolution Computed Tomographic imaging of the chest was performed on [04/26/25 ], with particular attention paid to the coronary arteries. Images from the examination were analyzed for the presence and extent of coronary artery calcification , using coronary calcium quantification software. The patient tolerated the procedure well and there were no complications. The results of the coronary calcification analysis are provided below. Findings Coronary Artery Left Main (LM): 0 Left Anterior Descending (LAD): 142 Left Circumflex (LCX): 67 Right Coronary Artery (RCA): 364 Total Agatston Score: 573 Percentile Rankin-90 Calcium Scoring Interpretation: Different methods to categorize the overall amount of coronary plaque. Overall amount CAC SIS Visual of coronary plaque P1 Mild -100 <2 1-2 vessels with mild amount of plaque P2 Moderate 101-300 3-4 1-2 vessels with moderate amount, 3 vessels with mild amount of plaque P3 Severe 301-999 5-7 3 vessels with moderate amount, 1 vessel with severe amount of plaque P4 Extensive >1000 >8 2-3 vessels with severe amount of plaque Calcium Score: Severe: 3 vessels w/moderate amount, 1 vessel w/severe amt of plaque Conclusion: Moderate three-vessel plaque disease.
== END | disposition home or self-care (01) ==
LOC: CT 14:46
PROVIDERS: PCP Family Medicine; Referring Provider Obstetrics & Gynecology; Visit Provider Obstetrics & Gynecology
DX: Z13.6 Encounter for screening for cardiovascular disorders (principal)
CPT/HCPCS: 75571; 76380